=== PATIENT | male | born 1970 | race Caucasian/White ===

== ENCOUNTER 2017-11-19 17:40 | Emergency (ER) | payer BC ==
[2017-11-19] MEDS ORDERED: LABETALOL 5 MG/ML VIAL MDV IVP STA (19:16)
--- NOTE | 2017-11-19 19:23 | ED ---
General Adult HPI - General Chief complaint: Recheck/Abnormal Lab/Rx Stated complaint: Hypertension Time Seen by Provider: 11/19/17 18:56 Source: patient Mode of arrival: ambulatory Limitations: no limitations - History of Present Illness Initial comments: This 47-year-old white male presents with a complaint of high blood pressure. He states that he has had difficulty controlling his blood pressure for the past month and half. He apparently was admitted to the hospital proximal C1 and a half months ago for hypertensive crisis as well as congestive heart failure. He is on multiple blood pressure medications. He states that he has been taking these as he should. His blood pressure at home has been running between 150-160 systolic. He was seen at his primary care physician's office today and had a blood pressure of 198/112. He does complain of occasional fatigue but otherwise denies any shortness of breath, chest pain, or lower extremity edema. He denies any other complaints or modifying factors. He was sent by his primary care physician to the ER for further treatment. - Related Data Home Medications Medication Instructions Recorded Confirmed Multivitamins, Thera [Multivitamin 1 tab PO DAILY@1200 10/24/17 11/19/17 (formulary)] Atorvastatin [Lipitor] 20 mg PO HS 11/19/17 11/19/17 Carvedilol [Coreg] 25 mg PO BID 11/19/17 11/19/17 amLODIPine [Norvasc] 5 mg PO DAILY 11/19/17 11/19/17 hydrALAZINE HCL [Apresoline] 25 mg PO TID 11/19/17 11/19/17 Previous Rx's Medication Instructions Recorded Folic Acid 1 mg PO DAILY@1200 #30 tab 10/11/17 Losartan [Cozaar] 50 mg PO DAILY #30 tab 10/11/17 Thiamine [Vitamin B-1] 100 mg PO DAILY@1200 #30 tab 10/11/17 Spironolactone [Aldactone] 25 mg PO DAILY #30 tab 10/12/17 Allergies Allergy/AdvReac Type Severity Reaction Status Date / Time warfarin [From Coumadin] Allergy Swelling Verified 11/19/17 19:37 Review of Systems ROS Statement: Those systems with pertinent positive or pertinent negative responses have been documented in the HPI. ROS Other: All systems not noted in ROS Statement are negative. Past Medical History Past Medical History: Heart Failure, Hypertension History of Any Multi-Drug Resistant Organisms: None Reported Past Surgical History: Orthopedic Surgery Additional Past Surgical History / Comment(s): toe and arm surgery Past Psychological History: No Psychological Hx Reported Smoking Status: Former smoker Past Alcohol Use History: Occasional Past Drug Use History: None Reported General Exam - General Exam Comments Initial Comments: GENERAL: The patient is well nourished and well hydrated. VITAL SIGNS: Heart rate, blood pressure, respiratory rate reviewed as recorded in nurse's notes. EYES: Pupils are round and reactive. Extraocular movements are intact. No conjunctival / lid redness or swelling. ENT: No external evidence of injury, swelling, or ecchymosis. Airway is patent. Throat is clear. NECK: Nontender. No swelling or evidence of injury. No subcutaneous emphysema. Trachea is midline. No thyroid mass. HEART: Regular rate and rhythm. Good peripheral pulses. LUNGS/CHEST: Breath sounds clear and equal bilaterally. No rales, rhonchi, or wheezes. No ecchymosis, subcutaneous emphysema, or tenderness. ABDOMEN: Abdomen soft without tenderness. No palpable masses or organomegaly. No peritoneal signs. No abdominal wall swelling or ecchymosis. EXTREMITIES: No extremity tenderness. Normal muscle tone and function. No thoracolumbar tenderness. NEUROLOGIC: Sensation is grossly intact. Cranial nerve exam reveals face is symmetrical, tongue is midline, speech is clear. SKIN: No abrasions or ecchymosis is noted. No induration or masses noted. PSYCHIATRIC: Alert and oriented. Appropriate behavior and judgment. Limitations: no limitations Course Vital Signs 11/19/17 11/19/17 11/19/17 18:10 19:15 19:40 Temperature 99.0 F Pulse Rate 94 85 77 Respiratory 20 20 20 Rate Blood Pressure 188/107 178/100 160/79 O2 Sat by Pulse 98 98 99 Oximetry 11/19/17 20:00 Temperature Pulse Rate 75 Respiratory 20 Rate Blood Pressure 148/74 O2 Sat by Pulse 96 Oximetry Medical Decision Making - Medical Decision Making The patient was seen and examined. All diagnostics were reviewed. An EKG was started and shows a normal sinus rhythm at a rate of 79 with a first-degree AV block. The CO interval is 218, QRS duration is 112, and the QTC intervals 447. There is occasional artifact noted. He does receive some labetalol intravenously because his blood pressure slightly elevated at 176/100 upon my evaluation. The laboratory is reviewed and is unremarkable. After the labetalol, his blood pressure was 143/78 and he is asymptomatic. It is not felt as though he would require admission at this time. Is felt that he stable for discharge home and leaves in no distress. It is also felt as though he should increase his Norvasc from 5 mg a day to 10 mg per day and is agreeable. He will have close follow-up with his primary care physician. Return parameters are discussed. He will also maintain a blood pressure log to bring into his primary care physician. - Lab Data Result diagrams: 11/19/17 19:09 11/19/17 19:09 Lab Results 11/19/17 11/19/17 11/19/17 Range/Units 19: 19: 19: WBC 8.4 (3.8-10.6) k/uL RBC 5.73 (4.30-5.90) m/uL Hgb 16.5 D (13.0-17.5) gm/dL Hct 50.4 (39.0-53.0) % MCV 87.9 D (80.0-100.0) fL MCH 28.8 (25.0-35.0) pg MCHC 32.7 (31.0-37.0) g/dL RDW 15.3 (11.5-15.5) % Plt Count 214 (150-450) k/uL Neutrophils % 74 % Lymphocytes % 12 % Monocytes % 8 % Eosinophils % 4 % Basophils % 1 % Neutrophils # 6.3 (1.3-7.7) k/uL Lymphocytes # 1.0 (1.0-4.8) k/uL Monocytes # 0.6 (0-1.0) k/uL Eosinophils # 0.3 (0-0.7) k/uL Basophils # 0.1 (0-0.2) k/uL PT (9.0-12.0) sec INR (<1.2) APTT (22.0-30.0) sec Sodium 138 (137-145) mmol/L Potassium 4.5 (3.5-5.1) mmol/L Chloride 101 (98-107) mmol/L Carbon Dioxide 24 (22-30) mmol/L Anion Gap 13 mmol/L BUN 12 (9-20) mg/dL Creatinine 1.00 (0.66-1.25) mg/dL Est GFR (MDRD) Af Amer >60 (>60 ml/min/1.73 sqM) Est GFR (MDRD) Non-Af >60 (>60 ml/min/1.73 sqM) Glucose 90 (74-99) mg/dL Calcium 10.4 H (8.4-10.2) mg/dL Magnesium 1.9 (1.6-2.3) mg/dL Total Bilirubin 0.6 (0.2-1.3) mg/dL AST 29 (17-59) U/L ALT 44 (21-72) U/L Alkaline Phosphatase 76 (38-126) U/L Total Creatine Kinase 41 L (55-170) U/L CK-MB (CK-2) 0.6 (0.0-2.4) ng/mL CK-MB (CK-2) Rel Index 1.5 Troponin I 0.020 (0.000-0.034) ng/mL Total Protein 8.0 (6.3-8.2) g/dL Albumin 4.7 (3.5-5.0) g/dL TSH 4.170 (0.465-4.680) mIU/L 11/19/17 Range/Units 19:09 WBC (3.8-10.6) k/uL RBC (4.30-5.90) m/uL Hgb (13.0-17.5) gm/dL Hct (39.0-53.0) % MCV (80.0-100.0) fL MCH (25.0-35.0) pg MCHC (31.0-37.0) g/dL RDW (11.5-15.5) % Plt Count (150-450) k/uL Neutrophils % % Lymphocytes % % Monocytes % % Eosinophils % % Basophils % % Neutrophils # (1.3-7.7) k/uL Lymphocytes # (1.0-4.8) k/uL Monocytes # (0-1.0) k/uL Eosinophils # (0-0.7) k/uL Basophils # (0-0.2) k/uL PT 10.0 (9.0-12.0) sec INR 1.0 (<1.2) APTT 26.9 (22.0-30.0) sec Sodium (137-145) mmol/L Potassium (3.5-5.1) mmol/L Chloride (98-107) mmol/L Carbon Dioxide (22-30) mmol/L Anion Gap mmol/L BUN (9-20) mg/dL Creatinine (0.66-1.25) mg/dL Est GFR (MDRD) Af Amer (>60 ml/min/1.73 sqM) Est GFR (MDRD) Non-Af (>60 ml/min/1.73 sqM) Glucose (74-99) mg/dL Calcium (8.4-10.2) mg/dL Magnesium (1.6-2.3) mg/dL Total Bilirubin (0.2-1.3) mg/dL AST (17-59) U/L ALT (21-72) U/L Alkaline Phosphatase (38-126) U/L Total Creatine Kinase (55-170) U/L CK-MB (CK-2) (0.0-2.4) ng/mL CK-MB (CK-2) Rel Index Troponin I (0.000-0.034) ng/mL Total Protein (6.3-8.2) g/dL Albumin (3.5-5.0) g/dL TSH (0.465-4.680) mIU/L Disposition Clinical Impression: Hypertension, uncontrolled Disposition: HOME SELF-CARE Condition: Good Instructions: Hypertension (ED), DASH Eating Plan (ED) Additional Instructions: Please increase your Norvasc dosing from 5 mg a day to 10 mg once per day. Referrals: Arsh Young MD [Primary Care Provider] - 1-2 days Time of Disposition: 21:00
[2017-11-19 20:10] LABS: Basophils # (A) 0.1 k/uL (0-0.2); Basophils % (A) 1 %; Eosinophils # (A) 0.3 k/uL (0-0.7); Eosinophils % (A) 4 %; HCT 50.4 % (39.0-53.0); Lymphocytes % (A) 12 %; MCH 28.8 pg (25.0-35.0); MCHC 32.7 g/dL (31.0-37.0); Mean Platelet Volume 8.7; Monocytes # (A) 0.6 k/uL (0-1.0); Monocytes % (A) 8 %; Neutrophils # (A) 6.3 k/uL (1.3-7.7); Neutrophils % (A) 74 %; Platelet Count 214 k/uL (150-450); RBC 5.73 m/uL (4.30-5.90); RDW 15.3 % (11.5-15.5); WBC 8.4 k/uL (3.8-10.6)
[2017-11-19 20:14] LABS: HGB 16.5 gm/dL (13.0-17.5); MCV 87.9 fL (80.0-100.0)
[2017-11-19 20:17] LABS: Partial Thromboplastin Time 26.9 sec (22.0-30.0)
[2017-11-19 20:19] LABS: ALT 44 U/L (21-72); AST 29 U/L (17-59); Albumin 4.7 g/dL (3.5-5.0); Alkaline Phosphatase 76 U/L (38-126); Anion Gap 13 mmol/L; Blood Urea Nitrogen 12 mg/dL (9-20); Calcium 10.4 mg/dL (8.4-10.2); Carbon Dioxide 24 mmol/L (22-30); Chloride 101 mmol/L (98-107); Glucose 90 mg/dL (74-99); Magnesium 1.9 mg/dL (1.6-2.3); Potassium 4.5 mmol/L (3.5-5.1); Sodium 138 mmol/L (137-145); Total Bilirubin 0.6 mg/dL (0.2-1.3)
[2017-11-19 20:46] LABS: Creatine Kinase MB 0.6 ng/mL (0.0-2.4); Troponin I 0.02 ng/mL (0.000-0.034)
[2017-11-19 21:10] VITALS: BP 153/85; PULSE 79; RESP 18; TEMP 97.8
== END 2017-11-19 21:13 | disposition home or self-care (01) ==
LOC: EC 17:40
DX: I11.0 Hypertensive heart disease with heart failure (principal); I50.9 Heart failure, unspecified; Z87.891 Personal history of nicotine dependence; Z79.02 Long term (current) use of antithrombotics/antiplatelets; Z79.899 Other long term (current) drug therapy; Z88.8 Allergy status to other drugs, medicaments and biological substances
CPT/HCPCS: 36415; 80053; 82550; 82553; 83735; 84443; 84484; 85025; 85610; 85730; 93005; 96374; 99284

== ENCOUNTER → 2018-02-21 | Outpatient (CLI) | payer BC ==
--- NOTE | 2018-02-21 18:53 | US ---
EXAMINATION TYPE: US kidneys/renal and bladder DATE OF EXAM: 02/21/2018 COMPARISON: NONE CLINICAL HISTORY: N19 Renal Failure per order. Recent heart failure per patient. Difficult exam due t o patient body habitus EXAM MEASUREMENTS: Right Kidney: 10.4 x 6.2 x 4.7 cm Left Kidney: 10.6 x 5.9 x 5.0 cm Right Kidney: No hydronephrosis or masses seen Left Kidney: No hydronephrosis or masses seen Bladder: wnl Bilateral Jets seen: Yes There is no evidence for hydronephrosis at this point in time. No nephrolithiasis is seen. No marian s are identified. The urinary bladder is anechoic. Bilateral ureteral jets are seen. IMPRESSION: Unremarkable study
== END | disposition home or self-care (01) ==
LOC: RADUSWWP 15:59
PROVIDERS: ATTEND Family Medicine
DX: N19 Unspecified kidney failure (principal)
CPT/HCPCS: 76770

== ENCOUNTER 2020-05-07 11:15 | Inpatient (IN) | payer BC ==
[2020-05-07 12:18] LABS: Basophils # (A) 0.1 k/uL (0-0.2); Basophils % (A) 1 %; Eosinophils # (A) 0.1 k/uL (0-0.7); Eosinophils % (A) 1 %; HCT 51.9 % (39.0-53.0); HGB 16.4 gm/dL (13.0-17.5); Hypochromasia Slight; Lymphocytes # (A) 0.5 k/uL (1.0-4.8); Lymphocytes % (A) 7 %; MCH 29.2 pg (25.0-35.0); MCHC 31.6 g/dL (31.0-37.0); MCV 92.5 fL (80.0-100.0); Mean Platelet Volume 8.2; Monocytes # (A) 0.4 k/uL (0-1.0); Monocytes % (A) 5 %; Neutrophils # (A) 7.1 k/uL (1.3-7.7); Neutrophils % (A) 86 %; Platelet Count 282 k/uL (150-450); RBC 5.61 m/uL (4.30-5.90); RDW 14.7 % (11.5-15.5); WBC 8.2 k/uL (3.8-10.6)
[2020-05-07] MEDS ORDERED: ASPIRIN 325 MG TAB PO STA (12:24)
[2020-05-07] MEDS ORDERED: FUROSEMIDE 10 MG/ML 4 ML VIAL IV STA (12:24)
--- NOTE | 2020-05-07 12:24 | ED ---
General Adult HPI - General Chief complaint: Shortness of Breath Stated complaint: High BP, edema Time Seen by Provider: 05/07/20 11:27 Source: patient, RN notes reviewed, old records reviewed Mode of arrival: ambulatory Limitations: no limitations - History of Present Illness Initial comments: 49-year-old male history of congestive heart failure presents for evaluation of weight gain, lower extremity edema, and dyspnea. Patient was seen by his [facility] physician and noted to have significant weight gain approximately 40 pounds over the past 3 weeks. He states he was unable to get his prescriptions filled and has not been on any of his prescribed medication for the past 3 weeks. He does report orthopnea and exertional. No fever. No cough. No chest pain. - Related Data Home Medications Medication Instructions Recorded Confirmed Multivitamins, Thera [Multivitamin 1 tab PO DAILY 10/24/17 05/07/20 (formulary)] hydrALAZINE HCL [Apresoline] 25 mg PO TID 11/19/17 05/07/20 Furosemide [Lasix] 20 mg PO DAILY 05/07/20 05/07/20 Ubidecarenone [Co Q-10] 100 mg PO DAILY 05/07/20 05/07/20 Allergies Allergy/AdvReac Type Severity Reaction Status Date / Time warfarin [From Coumadin] Allergy Swelling Verified 05/07/20 12:03 Review of Systems ROS Statement: Those systems with pertinent positive or pertinent negative responses have been documented in the HPI. ROS Other: All systems not noted in ROS Statement are negative. Past Medical History Past Medical History: Heart Failure, Hypertension History of Any Multi-Drug Resistant Organisms: None Reported Past Surgical History: Orthopedic Surgery Additional Past Surgical History / Comment(s): toe and arm surgery Past Psychological History: No Psychological Hx Reported Smoking Status: Former smoker Past Alcohol Use History: Occasional Past Drug Use History: None Reported General Exam Limitations: no limitations General appearance: alert, in no apparent distress Head exam: Present: atraumatic, normocephalic Eye exam: Present: normal appearance. Absent: PERRL ENT exam: Present: normal exam Neck exam: Present: normal inspection. Absent: tenderness, meningismus Respiratory exam: Present: rales. Absent: respiratory distress, wheezes Cardiovascular Exam: Present: normal rhythm, tachycardia GI/Abdominal exam: Present: soft, distended. Absent: tenderness, guarding, rebound Extremities exam: Present: pedal edema (2+ pitting edema bilaterally) Course Vital Signs 05/07/20 05/07/20 11:22 12:43 Temperature 98.5 F Pulse Rate 116 H Respiratory 18 Rate Blood Pressure 203/142 167/133 O2 Sat by Pulse 97 Oximetry EKG Findings - EKG Comments: EKG Findings:: EKG: Sinus tachycardia, left atrial enlargement, rate of 110, DC interval 188, QRS duration 98, QTC 454, no ST segment elevation. Medical Decision Making - Medical Decision Making 49-year-old male with weight gain, dyspnea, lower leg swelling, patient is in congestive heart failure, with x-ray evidence of pulmonary edema and CHF. He has a significantly elevated BNP at 30,000 and a troponin elevation of 0 point 0.69 which I suspect is secondary to CHF. His EKG is sinus tachycardia with no ST segment elevation. He is chest pain-free. He is given aspirin, nitroglycerin, Lasix in the emergency department. He started on heparin while enzymes will be trended. I discussed case with Dr. Nava who will admit. - Lab Data Result diagrams: 05/07/20 12:03 05/07/20 12:03 Lab Results 05/07/20 05/07/20 05/07/20 Range/Units 12:03 12:03 12:03 WBC 8.2 (3.8-10.6) k/uL RBC 5.61 (4.30-5.90) m/uL Hgb 16.4 (13.0-17.5) gm/dL Hct 51.9 (39.0-53.0) % MCV 92.5 (80.0-100.0) fL MCH 29.2 (25.0-35.0) pg MCHC 31.6 (31.0-37.0) g/dL RDW 14.7 (11.5-15.5) % Plt Count 282 (150-450) k/uL Neutrophils % 86 % Lymphocytes % 7 % Monocytes % 5 % Eosinophils % 1 % Basophils % 1 % Neutrophils # 7.1 (1.3-7.7) k/uL Lymphocytes # 0.5 L (1.0-4.8) k/uL Monocytes # 0.4 (0-1.0) k/uL Eosinophils # 0.1 (0-0.7) k/uL Basophils # 0.1 (0-0.2) k/uL Hypochromasia Slight PT 12.1 H (9.0-12.0) sec INR 1.2 H (<1.2) APTT 24.5 (22.0-30.0) sec Sodium 135 L (137-145) mmol/L Potassium 4.6 (3.5-5.1) mmol/L Chloride 102 (98-107) mmol/L Carbon Dioxide 23 (22-30) mmol/L Anion Gap 10 mmol/L BUN 37 H (9-20) mg/dL Creatinine 2.03 H (0.66-1.25) mg/dL Est GFR (CKD-EPI)AfAm 43 (>60 ml/min/1.73 sqM) Est GFR (CKD-EPI)NonAf 37 (>60 ml/min/1.73 sqM) Glucose 106 H (74-99) mg/dL Plasma Lactic Acid Vega (0.7-2.0) mmol/L Calcium 9.1 (8.4-10.2) mg/dL Total Bilirubin 1.1 (0.2-1.3) mg/dL AST 32 (17-59) U/L ALT 30 (4-49) U/L Alkaline Phosphatase 105 (38-126) U/L Troponin I (0.000-0.034) ng/mL NT-Pro-B Natriuret Pep pg/mL Total Protein 6.3 (6.3-8.2) g/dL Albumin 3.3 L (3.5-5.0) g/dL 05/07/20 05/07/20 05/07/20 Range/Units 12:03 12:03 12:03 WBC (3.8-10.6) k/uL RBC (4.30-5.90) m/uL Hgb (13.0-17.5) gm/dL Hct (39.0-53.0) % MCV (80.0-100.0) fL MCH (25.0-35.0) pg MCHC (31.0-37.0) g/dL RDW (11.5-15.5) % Plt Count (150-450) k/uL Neutrophils % % Lymphocytes % % Monocytes % % Eosinophils % % Basophils % % Neutrophils # (1.3-7.7) k/uL Lymphocytes # (1.0-4.8) k/uL Monocytes # (0-1.0) k/uL Eosinophils # (0-0.7) k/uL Basophils # (0-0.2) k/uL Hypochromasia PT (9.0-12.0) sec INR (<1.2) APTT (22.0-30.0) sec Sodium (137-145) mmol/L Potassium (3.5-5.1) mmol/L Chloride (98-107) mmol/L Carbon Dioxide (22-30) mmol/L Anion Gap mmol/L BUN (9-20) mg/dL Creatinine (0.66-1.25) mg/dL Est GFR (CKD-EPI)AfAm (>60 ml/min/1.73 sqM) Est GFR (CKD-EPI)NonAf (>60 ml/min/1.73 sqM) Glucose (74-99) mg/dL Plasma Lactic Acid Vega 2.3 H* (0.7-2.0) mmol/L Calcium (8.4-10.2) mg/dL Total Bilirubin (0.2-1.3) mg/dL AST (17-59) U/L ALT (4-49) U/L Alkaline Phosphatase (38-126) U/L Troponin I 0.690 H* (0.000-0.034) ng/mL NT-Pro-B Natriuret Pep 03678 pg/mL Total Protein (6.3-8.2) g/dL Albumin (3.5-5.0) g/dL Critical Care Time Critical Care Time: Yes Total Critical Care Time: 35 Disposition Clinical Impression: Congestive heart failure Disposition: ADMITTED IP TO THIS [facility] Condition: Stable Is patient prescribed a controlled substance at d/c from ED?: No Referrals: Nila Quintana MD [Primary Care Provider] - 1-2 days Decision to Admit Reason: Admit from EC Decision Date: 05/07/20 Decision Time: 13:26
[2020-05-07 12:26] LABS: INR 1.2 (<1.2); Partial Thromboplastin Time 24.5 sec (22.0-30.0); Prothrombin Time 12.1 sec (9.0-12.0)
[2020-05-07 12:34] LABS: Albumin 3.3 g/dL (3.5-5.0); Calcium 9.1 mg/dL (8.4-10.2); Potassium 4.6 mmol/L (3.5-5.1); Total Bilirubin 1.1 mg/dL (0.2-1.3); Total Protein 6.3 g/dL (6.3-8.2)
--- NOTE | 2020-05-07 12:39 | XR ---
EXAMINATION TYPE: XR chest 2V DATE OF EXAM: 05/07/2020 COMPARISON: 10/11/2017 INDICATION: Difficulty breathing short of breath retained fluid TECHNIQUE: Frontal and lateral views of the chest are obtained. FINDINGS: The heart size is moderately prominent. The pulmonary vasculature is slightly prominent. No suspicious focal consolidations are evident.. IMPRESSION: 1. Mild volume overload or early pulmonary edema. Follow-up as clinically indicated.
[2020-05-07] MEDS: NITROGLYCERIN SL TABS 0.4 MG TAB SUBLINGUAL PRN ×2 (12:44→13:10)
[2020-05-07] MEDS ORDERED: NITROGLYCERIN-D5W PMX 50 MG in DEXTROSE/WATER 1 250ML.BAG IV ONE (13:09)
[2020-05-07] MEDS ORDERED: HEPARIN SODIUM,PORCINE 5,000 UNIT/ML 1 ML VIAL IV ONE (13:23)
[2020-05-07] MEDS ORDERED: NALOXONE 0.4 MG/ML 1 ML VIAL IV PRN (13:23)
[2020-05-07] MEDS ORDERED: HEPARIN SODIUM,PORCINE 5,000 UNIT/ML 1 ML VIAL IV PRN (13:23)
[2020-05-07] MEDS: HEPARIN SOD,PORK IN 0.45% NACL 25,000 UNIT in 0.45% NACL 1 250ML.BAG IV SCH (13:50)
--- NOTE | 2020-05-07 15:00 | ECHOF ---
Referral Reason:chf MEASUREMENTS -------- HEIGHT: 170.2 cm WEIGHT: 131.5 kg BP: 160/126 RVIDd: 3.6 cm (< 3.3) IVSd: 1.4 cm (0.6 - 1.1) LVIDd: 5.2 cm (3.9 - 5.3) LVPWd: 1.5 cm (0.6 - 1.1) IVSs: 1.7 cm LVIDs: 4.9 cm LVPWs: 2.1 cm LA Diam: 5.0 cm (2.7 - 3.8) LAESV Index (A-L): 34.87 ml/m Ao Diam: 3.5 cm (2.0 - 3.7) MV EXCURSION: 12.104 mm (> 18.000) MV EF SLOPE: 72 mm/s (70 - 150) EPSS: 2.0 cm RAP: 15.00 mmHg RVSP: 66.16 mmHg FINDINGS -------- Resting tachycardia (HR>100bpm). This was a technically difficult study with suboptimal apical views. The left ventricular size is normal. There is moderate concentric left ventricular hypertrophy. O verall left ventricular systolic function is severely impaired with, an EF < 20%. The right ventricle is mildly enlarged. LA is moderately dilated 34-39 ml/m2 The right atrium is normal in size. 3 ml of Lumason was utilized for enhancement of images. Interatrial and interventricular septum intact. There is mild aortic valve sclerosis. There is trace to mild mitral regurgitation. Mild tricuspid regurgitation present. There is severe pulmonary hypertension. The right ventricul ar systolic pressure, as measured by Doppler, is 66.16mmHg. Trace/mild (physiologic) pulmonic regurgitation. Thrombus in [place] The aortic root size is normal. The inferior vena cava is dilated with no significant inspiratory collapse which is consistent estima marlen right atrial pressure of >15 mmHg. There is a small, generalized pericardial effusion present. CONCLUSIONS -------- 1. Resting tachycardia (HR>100bpm). 2. This was a technically difficult study with suboptimal apical views. 3. The left ventricular size is normal. 4. There is moderate concentric left ventricular hypertrophy. 5. Overall left ventricular systolic function is severely impaired with, an EF < 20%. 6. The right ventricle is mildly enlarged. 7. LA is moderately dilated 34-39 ml/m2 8. The right atrium is normal in size. 9. xx ml of Lumason was utilized for enhancement of images. 10. Interatrial and interventricular septum intact. 11. There is mild aortic valve sclerosis. 12. There is trace to mild mitral regurgitation. 13. Mild tricuspid regurgitation present. 14. There is severe pulmonary hypertension. 15. The right ventricular systolic pressure, as measured by Doppler, is 66.16mmHg. 16. Trace/mild (physiologic) pulmonic regurgitation. 17. Thrombus in [place] 18. The aortic root size is normal. 19. The inferior vena cava is dilated with no significant inspiratory collapse which is consistent es timated right atrial pressure of >15 mmHg. 20. There is a small, generalized pericardial effusion present. [employer]: Michelle Bundy RDCS
--- NOTE | 2020-05-07 17:00 | P.HPIM ---
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 Patient used to drink heavily between 6-12 beers a day for many years. Patient was placed on multi-medication for his heart failure supposed to see his primary care and cardiology regular basis which patient has not seen anyone for the last 12 month has not in on any medication including diuretics or DARSHAN inhibitor for over 6 months. Resented with over 40 pounds weight gain if can't dyspnea and shortness of breath with anasarca edema and significant ascites patient was diagnosed with acute exacerbation of CHF on a ch ronic CHF with cardiomyopathy he was started on IV Lasix and will be hospitalized. Review of Systems CONSTITUTIONAL: Well-developed mild respiratory distress. Morbidly obese EYES: No icterus sclerae, no conjunctivitis. EARS, NOSE, MOUTH, THROAT, and FACE: No sore throat, lymphadenopathy, carotid bruits or deformity. RESPIRATORY: Severe dyspnea and shortness of breath. CARDIOVASCULAR: Positive PND orthopnea palpitation with severe cardiopathy. GASTROINTESTINAL: No Abd pain, Nausea or vomiting, no Diarrhea or constipation, No GI Bleed, no distention or masses. Significant abdominal distention. GENITOURINARY: Negative for Hematuria or UTI, no kidney stones. Multi- urination. INTEGUMENT/BREAST: Negative for any muscular injury with mild osteoarthritis.. HEMATOLOGIC/LYMPHATIC: Negative for bleed or purpura. MUSCULOSKELTAL: Negative for Myalgia or arthralgia. NEURLOGICAL: No LOC, Sz or syncope, blurred vision dizziness or abnormality.. BEHAVIORAL/PSYCH: Negative. ENDOCRINE: Negative. Social history: He quit drinking 6 weeks ago used to drink 6-7 beers daily for the last 10 years, patient smokes one pack a day for 15 years he quit 10 years ago. 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 Family history: His father is 77 CAD, mother no 76 at [facility], patient had 1 brother who is doing well patient has one child with no major medical problem. Past Medical History Past Medical History: Heart Failure, Hypertension History of Any Multi-Drug Resistant Organisms: None Reported Past Surgical History: Orthopedic Surgery Additional Past Surgical History / Comment(s): toe and arm surgery Past Psychological History: No Psychological Hx Reported Smoking Status: Former smoker Past Alcohol Use History: Occasional Past Drug Use History: None Reported Medications and Allergies Home Medications Medication Instructions Recorded Confirmed Type Multivitamins, Thera [Multivitamin 1 tab PO DAILY 10/24/17 05/07/20 History (formulary)] hydrALAZINE HCL [Apresoline] 25 mg PO TID 11/19/17 05/07/20 History Furosemide [Lasix] 20 mg PO DAILY 05/07/20 05/07/20 History Ubidecarenone [Co Q-10] 100 mg PO DAILY 05/07/20 05/07/20 History amLODIPine [Norvasc] 5 mg PO DAILY 05/07/20 05/07/20 History Allergies Allergy/AdvReac Type Severity Reaction Status Date / Time warfarin [From Coumadin] Allergy Swelling Verified 05/07/20 12:03 Physical Exam Vitals: Vital Signs Temp Pulse Resp BP Pulse Ox 05/07/20 14:21 98.2 F 101 H 18 176/136 96 05/07/20 14:17 187/130 05/07/20 13:49 160/126 05/07/20 13:45 108 H 21 161/133 05/07/20 13:30 104 H 20 175/121 05/07/20 13:15 103 H 22 168/125 05/07/20 12:45 108 H 19 167/133 05/07/20 12:43 167/133 05/07/20 12:15 105 H 17 05/07/20 12:11 96 05/07/20 11:22 98.5 F 116 H 18 203/142 97 Intake and Output 05/07/20 05/07/20 05/07/20 06:59 14:59 22:59 Other: Weight 132.903 kg General Appearance: Alert, cooperative, morbidly obese in mild respiratory distress. Neck HEENT: Supple, no lymphadenopathy, no thyroid enlargement, no carotid bruits. Lungs: Decreased breath some bilaterally with fine rhonchi has mild crackles has mild expiratory wheezes. Chest Wall: Decrease expansion with deep inspiration no tenderness and no deformity was found on exam, no costochondral pain or discomfort. Heart: Regular rate and rhythm, S1, S2 positive S3 +5 cm JVD with mild PVCs. Back: Symmetric, no curvature, ROM normal, no CVA tenderness. Abdomen: Distended soft possible sound organomegaly slight discomfort lower a bdominal region area with significant anasarca and swelling.. Extremities: 2+ edema bilaterally with mild arthritis. Pulses: 2+ and symmetric. Skin: Skin color, texture, tugor normal, no rashes or lesions. Neurologic: Alert oriented x3 cranial nerves II through XII intact, no motor deficit, no abnormal balance or gait. Results CBC & Chem 7: 05/07/20 12:05/07/20 12: Labs: Abnormal Lab Results - Last 24 Hours (Table) 05/07/20 05/07/20 05/07/20 Range/Units 12:03 12:03 12:03 Lymphocytes # 0.5 L (1.0-4.8) k/uL PT 12.1 H (9.0-12.0) sec INR 1.2 H (<1.2) Sodium 135 L (137-145) mmol/L BUN 37 H (9-20) mg/dL Creatinine 2.03 H (0.66-1.25) mg/dL Glucose 106 H (74-99) mg/dL Plasma Lactic Acid Vega (0.7-2.0) mmol/L Troponin I (0.000-0.034) ng/mL Albumin 3.3 L (3.5-5.0) g/dL 05/07/20 05/07/20 Range/Units 12:03 12:03 Lymphocytes # (1.0-4.8) k/uL PT (9.0-12.0) sec INR (<1.2) Sodium (137-145) mmol/L BUN (9-20) mg/dL Creatinine (0.66-1.25) mg/dL Glucose (74-99) mg/dL Plasma Lactic Acid Vega 2.3 H* (0.7-2.0) mmol/L Troponin I 0.690 H* (0.000-0.034) ng/mL Albumin (3.5-5.0) g/dL Thrombosis Risk Factor Assmnt - DVT/VTE Prophylaxis DVT/VTE Prophylaxis: Pharmacologic Prophylaxis ordered, Mechanical Prophylaxis ordered Assessment and Plan Assessment: 1 severe dyspnea and shortness of breath with acute respiratory failure: Combination of acute exacerbation of systolic congestive heart failure with chronic heart failure. 2 systolic dysfunction congestive heart failure with worsening symptoms, mostly from noncompliant to medication and probably from worsening alcoholic cardiopathy, patient was supposed to be on furosemide daily along with hydralazine and isosorbide has not taking her medication in several months he has over 40 pounds weight gain since. Patient will be hospitalized continue IV furosemide 40 mg every 8 hours continue nitro back on his hydralazine patient will need smaller dose of beta kaycee as well. Can add Aldactone to reduce the watch retention and anasarca quickly. Echocardiogram will be performed and consult cardiology. 3 alcoholic cardiopathy: With much worsening symptoms, patient claimed he quit drinking recently not a clear at this point and echocardiogram compared to the one in 2017 to see if there is any worsening sign and symptom of contractility with ejection fraction. 4 hypertension: Has not been taking his medication for over 6 month his blood pressure was moderately elevated continue hydralazine continue furosemide Will add Aldactone at this point and probably small dose of beta kaycee. 5 acute kidney injury with chronic kidney disease: Creatinine is up to 2.0 with GFR less than 30 continue to watch daily chemistry. 6 mildly elevated troponin, possible of non-ST MD echocardiogram will consult cardiology if troponin is worsening patient might need to go to the assistant laboratory director. 7 elevated lactic acid: Not a clear etiology most likely metabolic acidosis from worsening heart failure and hypoperfusion continue IV diuretics and recheck lactic acid. 8 GI prophylaxis: Patient will be on pantoprazole 40 mg daily. 9 DVT prophylaxis: Patient will be on heparin 5000 units subcu in his twice a day. 10 most likely obstructive sleep apnea: With no study in the past patient need to have an arrange outpatient sleep study for further management. CODE STATUS: Full code. Admit patient to the inpatient service for more than 2 night stay.
[2020-05-07] MEDS ORDERED: hydrALAZINE HCL 20 MG/ML 1 ML VIAL IVP PRN (20:43)
[2020-05-07] MEDS ORDERED: FUROSEMIDE 10 MG/ML 4 ML VIAL IV SCH (21:00)
[2020-05-07] MEDS: hydrALAZINE HCL 50 MG TAB PO SCH (21:08)
[2020-05-07] MEDS: LABETALOL 100 MG TAB PO SCH (21:09)
[2020-05-07] MEDS ORDERED: hydrALAZINE HCL 25 MG TAB PO SCH (22:00)
[2020-05-07 22:33] LABS: Appearance,Urine Clear (Clear); Bilirubin,Urine Negative (Negative); Blood,Urine Negative (Negative); Color,Urine Light Yellow; Glucose,Urine (UA) Negative (Negative); Hyaline Casts,Urine 7 /lpf (0-2); Ketones,Urine Negative (Negative); Leukocyte Esterase,Urine Negative (Negative); Mucus,Urine Rare /hpf; Nitrite,Urine Negative (Negative); PH, Urine 5.5 (5.0-8.0); Protein,Urine 1+ (Negative); Specific Gravity,Urine 1.005 (1.001-1.035); Urobilinogen,Urine <2.0 mg/dL (<2.0); WBC,Urine <1 /hpf (0-5)
[2020-05-08] MEDS ORDERED: FUROSEMIDE 40 MG TAB PO SCH
[2020-05-08] MEDS: HEPARIN SOD,PORK IN 0.45% NACL 25,000 UNIT in 0.45% NACL 1 250ML.BAG IV SCH (03:17)
[2020-05-08] MEDS ORDERED: FUROSEMIDE 10 MG/ML 4 ML VIAL IV SCH (04:00)
[2020-05-08] MEDS: PANTOPRAZOLE 40 MG TABLET PO SCH (05:58)
[2020-05-08] MEDS: LABETALOL 100 MG TAB PO SCH ×2 (07:36→20:10)
[2020-05-08] MEDS: hydrALAZINE HCL 50 MG TAB PO SCH (07:36)
[2020-05-08] MEDS: NON FORMULARY DRUG (Ubidecarenone [Co Q-10] 100 MG) PO SCH (07:37)
--- NOTE | 2020-05-08 08:44 | P.NPCON ---
History of Present Illness - Reason for Consult acute renal failure - History of Present Illness Reason for visitation: Acute kidney injury History of present illness: Patient is a 49-year-old male seen in renal consultation for acute kidney injury. Patient presented to the hospital with worsening lymphedema over the last few weeks. Patient states that he has gained over 40 pounds within the last 4-6 weeks. He is currently maintained on IV Lasix 40 mg 3 times daily. urine output over 3 L in the last 24 hours. Patient's his edema is gradually improving. Creatinine was 2.03 on admission. Creatinine from November 2017 was 1.0. Patient is noted to have an ejection fraction of less than 20% with severe pulmonary hypertension. He denies use of nonsteroidals. Unknown family history as he was adopted. No fever or chills. No cough. No vomiting or diarrhea. Oral intake is fair.he denies history of diabetes. He does have history of hypertension blood pressure has been fairly stable although was high this morning. Vital signs are stable. General: The patient appeared well nourished and normally developed. HEENT: Head exam is unremarkable. Neck is without jugular venous distension. LUNGS: Breath sounds decreased. HEART: Rate and Rhythm are regular. ABDOMEN: Soft, nontender. EXTREMITITES: 3+ edema. Past Medical History Past Medical History: Heart Failure, Hypertension History of Any Multi-Drug Resistant Organisms: None Reported Past Surgical History: Orthopedic Surgery Additional Past Surgical History / Comment(s): toe and arm surgery Past Anesthesia/Blood Transfusion Reactions: No Reported Reaction Past Psychological History: No Psychological Hx Reported Smoking Status: Former smoker Past Alcohol Use History: Occasional Past Drug Use History: None Reported - Past Family History Mother History Unknown: Yes Father History Unknown: Yes Medications and Allergies Home Medications Medication Instructions Recorded Confirmed Type Multivitamins, Thera [Multivitamin 1 tab PO DAILY 10/24/17 05/07/20 History (formulary)] hydrALAZINE HCL [Apresoline] 25 mg PO TID 11/19/17 05/07/20 History Furosemide [Lasix] 20 mg PO DAILY 05/07/20 05/07/20 History Ubidecarenone [Co Q-10] 100 mg PO DAILY 05/07/20 05/07/20 History amLODIPine [Norvasc] 5 mg PO DAILY 05/07/20 05/07/20 History Allergies Allergy/AdvReac Type Severity Reaction Status Date / Time warfarin [From Coumadin] Allergy Swelling Verified 05/07/20 12:03 Physical Exam Vitals: Vital Signs Temp Pulse Pulse Resp BP BP Pulse Ox 05/08/20 07:33 97.8 F 92 18 173/116 96 05/08/20 03:00 98 F 81 16 157/103 97 05/07/20 23:00 98.5 F 80 16 123/78 93 L 05/07/20 22:10 88 138/84 05/07/20 20:30 104 H 16 189/145 94 L 05/07/20 19:40 98.4 F 104 H 16 202/152 93 L 05/07/20 19:08 97.4 F L 97 18 185/128 97 05/07/20 16:00 18 05/07/20 14:21 98.2 F 101 H 18 176/136 96 05/07/20 14:17 187/130 05/07/20 13:49 160/126 05/07/20 13:45 108 H 21 161/133 05/07/20 13:30 104 H 20 175/121 05/07/20 13:15 103 H 22 168/125 05/07/20 12:45 108 H 19 167/133 05/07/20 12:43 167/133 05/07/20 12:15 105 H 17 05/07/20 12:11 96 05/07/20 11:22 98.5 F 116 H 18 203/142 97 Intake and Output 05/07/20 05/08/20 05/08/20 22:59 06:59 14:59 Intake Total 214.501 Output Total 2450 1075 Balance -2235.499 -1075 Intake: Intake, IV Titration 214.501 Amount Heparin Sod,Pork in 0.45% 214.501 NaCl 25,000 unit In 0.45 % NaCl 1 250ml.bag @ 7.52 UNITS/KG/HR 9.994 mls/hr IV .Q24H [facility] Rx#: [id number] Output: Urine 2450 1075 Other: Voiding Method Urinal Urinal # Voids 3 Weight 132.903 kg 124.9 kg Results - Lab Results Most recent lab results Calcium 9.1 mg/dL (8.4-10.2) 05/07/20 12:03 05/07/20 12:03 05/07/20 12:03 Assessment and Plan Plan: Assessment: 1. Acute kidney injury mostly prerenal secondary to cardiorenal syndrome. Creatinine 2.03 on admission. Creatinine November 2017 was 1. 2. Acute on chronic systolic CHF with ejection fraction of less than 20% with severe pulmonary hypertension. 3. Volume overload. 4. Benign hypertension. Plan: Discontinue IV push Lasix. Start Lasix drip at 10 mL an hour. Add metolazone 5 mg once daily. Check renal ultrasound. Daily weights. Strict is and os. Low-salt diet and 1500 mL fluid restriction. Continue to monitor renal function and urine output. Thank you for the consultation. I will continue to follow the patient with you during his hospital stay.
[2020-05-08 08:53] LABS: Basophils % (A) 1 %; Eosinophils # (A) 0.1 k/uL (0-0.7); Eosinophils % (A) 1 %; HCT 48.3 % (39.0-53.0); HGB 14.9 gm/dL (13.0-17.5); Hypochromasia Slight; Lymphocytes # (A) 0.5 k/uL (1.0-4.8); Lymphocytes % (A) 9 %; MCHC 30.9 g/dL (31.0-37.0); Mean Platelet Volume 8.1; Monocytes # (A) 0.3 k/uL (0-1.0); Monocytes % (A) 6 %; Neutrophils # (A) 4.8 k/uL (1.3-7.7); Neutrophils % (A) 82 %; Platelet Count 213 k/uL (150-450); RBC 5.14 m/uL (4.30-5.90); RDW 14.8 % (11.5-15.5); WBC 5.9 k/uL (3.8-10.6)
[2020-05-08] MEDS ORDERED: amLODIPine 5 MG TAB PO SCH (09:00)
[2020-05-08] MEDS ORDERED: METOPROLOL SUCCINATE (ER) 25 MG TAB.ER.24H PO SCH (09:00)
[2020-05-08] MEDS ORDERED: ISOSORBIDE MONONITRATE ER 30 MG TAB.ER.24H PO SCH (09:00)
[2020-05-08 09:04] LABS: Albumin 2.9 g/dL (3.5-5.0); Calcium 8.7 mg/dL (8.4-10.2); Magnesium 2.1 mg/dL (1.6-2.3); Potassium 3.9 mmol/L (3.5-5.1); Total Bilirubin 1.1 mg/dL (0.2-1.3); Total Protein 5.8 g/dL (6.3-8.2)
[2020-05-08] MEDS: METOLAZONE 5 MG TAB PO SCH (09:33)
[2020-05-08] MEDS: FUROSEMIDE 100 MG in SODIUM CHLORIDE 0.9% 90 ML IV SCH ×2 (09:33→18:02)
[2020-05-08] MEDS: hydrALAZINE HCL 25 MG TAB PO SCH ×3 (09:37→20:10)
[2020-05-08] MEDS: ISOSORBIDE MONONITRATE ER 60 MG TAB.ER.24H PO SCH (09:37)
--- NOTE | 2020-05-08 09:50 | P.CRDCN ---
History of Present Illness Consult date: 05/08/20 Requesting physician: Be Nava Consult reason: congestive heart failure Chief complaint: Shortness of breath, weight gain and lower extremity edema History of present illness: This is a 49-year-old gentleman with documented history of hypertension, nonischemic cardiomyopathy with documented ejection fraction of less than 20%, no history of diabetes or hyperlipidemia, he is a nonsmoker, he does have a history of significant alcohol use which was felt originally to be the cause of his cardiomyopathy. According to the patient, he has not taken any of his medications for the past 3 weeks. He presents to the emergency room with symptoms of significant weight gain, bilateral lower extremity edema and shortness of breath. His chest x-ray on presentation here showed mild volume overload and early pulmonary edema. EKG shows a sinus tachycardia with nonspecific ST-T wave changes. An echocardiogram with Doppler study was performed here which revealed an LV function of less than 20%. There is evidence of thrombus in the apex. Small generalized pericardial effusion. I pressure on presentation here 203/142, heart rate 118, temperature 98.5, 97% on room air. Blood pressure this morning 172/116, heart rate in the 90s, 96% on room air. White blood cell count 5.9, hemoglobin 14.9, platelet count 213. Sodium 138, potassium 3.9, BUN 36, creatinine 1.9, yesterday's BUN was 37 with a creatinine of 2.0. BNP level 30,700. Troponin 0.69, 0.77, 0.68. Tucker virus not detected. The patient was initiated on IV push Lasix in the emergency room, we will discontinue the IV push Lasix and start the patient on a Lasix drip. Because of the known cardiomyopathy with documented ejection fraction of less than 20%, we will discontinue the Norvasc, patient was also on 2 beta blockers, we'll discontinue the metoprolol and continue with the labetalol for now. Increase dose of hydralazine increased dose of Imdur and attempt to optimize blood pressure control. Patient is not currently on an DARSHAN inhibitor because of abnormal renal function. Patient has also been seen in consultation by nephrology and initiated on Zaroxolyn. Past Medical History Past Medical History: Heart Failure, Hypertension History of Any Multi-Drug Resistant Organisms: None Reported Past Surgical History: Orthopedic Surgery Additional Past Surgical History / Comment(s): toe and arm surgery Past Anesthesia/Blood Transfusion Reactions: No Reported Reaction Past Psychological History: No Psychological Hx Reported Smoking Status: Former smoker Past Alcohol Use History: Occasional Past Drug Use History: None Reported - Past Family History Mother History Unknown: Yes Father History Unknown: Yes Medications and Allergies Home Medications Medication Instructions Recorded Confirmed Type Multivitamins, Thera [Multivitamin 1 tab PO DAILY 10/24/17 05/07/20 History (formulary)] hydrALAZINE HCL [Apresoline] 25 mg PO TID 11/19/17 05/07/20 History Furosemide [Lasix] 20 mg PO DAILY 05/07/20 05/07/20 History Ubidecarenone [Co Q-10] 100 mg PO DAILY 05/07/20 05/07/20 History amLODIPine [Norvasc] 5 mg PO DAILY 05/07/20 05/07/20 History Allergies Allergy/AdvReac Type Severity Reaction Status Date / Time warfarin [From Coumadin] Allergy Swelling Verified 05/07/20 12:03 Physical Exam Vitals: Vital Signs Temp Pulse Pulse Resp BP BP Pulse Ox 05/08/20 07:33 97.8 F 92 18 173/116 96 05/08/20 03:00 98 F 81 16 157/103 97 05/07/20 23:00 98.5 F 80 16 123/78 93 L 05/07/20 22:10 88 138/84 05/07/20 20:30 104 H 16 189/145 94 L 05/07/20 19:40 98.4 F 104 H 16 202/152 93 L 05/07/20 19:08 97.4 F L 97 18 185/128 97 05/07/20 16:00 18 05/07/20 14:21 98.2 F 101 H 18 176/136 96 05/07/20 14:17 187/130 05/07/20 13:49 160/126 05/07/20 13:45 108 H 21 161/133 05/07/20 13:30 104 H 20 175/121 05/07/20 13:15 103 H 22 168/125 05/07/20 12:45 108 H 19 167/133 05/07/20 12:43 167/133 05/07/20 12:15 105 H 17 05/07/20 12:11 96 05/07/20 11:22 98.5 F 116 H 18 203/142 97 Intake and Output 05/07/20 05/08/20 05/08/20 22:59 06:59 14:59 Intake Total 214.501 Output Total 2450 1075 Balance -2235.499 -1075 Intake: Intake, IV Titration 214.501 Amount Heparin Sod,Pork in 0.45% 214.501 NaCl 25,000 unit In 0.45 % NaCl 1 250ml.bag @ 7.52 UNITS/KG/HR 9.994 mls/hr IV .Q24H [facility] Rx#: [id number] Output: Urine 2450 1075 Other: Voiding Method Urinal Urinal Urinal # Voids 3 Weight 132.903 kg 124.9 kg PHYSICAL EXAMINATION: GENERAL: 49-year-old gentleman in no acute distress at the time of my examination HEENT: Head is atraumatic, normocephalic. Pupils equal, round. Sclera anicteric. Conjunctiva are clear. Mucous membranes of the mouth are moist. Neck is supple. There is elevated jugular venous pressure. No carotid bruit is heard. HEART EXAMINATION: Heart S1, S2 normal. No murmur or gallop heard. CHEST EXAMINATION: Lungs reveal diminished air entry to the bases bilaterally ABDOMEN: Soft, obese, nontender. Bowel sounds are heard. No organomegaly noted. EXTREMITIES: 2+ peripheral pulses with 3+ evidence of peripheral edema and no calf tenderness noted. NEUROLOGIC patient is awake, alert and oriented 3 . . Results 05/08/20 08:18 05/08/20 08:18 Cardiac Enzymes 05/07/20 05/07/20 05/07/20 Range/Units 12:03 12:03 18:54 AST 32 (17-59) U/L Troponin I 0.690 H* 0.770 H* (0.000-0.034) ng/mL 05/08/20 05/08/20 Range/Units 01:30 08:18 AST 36 (17-59) U/L Troponin I 0.683 H* (0.000-0.034) ng/mL Coagulation 05/07/20 05/07/20 05/08/20 Range/Units 12:03 18:54 01:30 PT 12.1 H (9.0-12.0) sec APTT 24.5 66.9 H 57.1 H (22.0-30.0) sec CBC 05/07/20 05/08/20 Range/Units 12:03 08:18 WBC 8.2 5.9 (3.8-10.6) k/uL RBC 5.61 5.14 (4.30-5.90) m/uL Hgb 16.4 14.9 (13.0-17.5) gm/dL Hct 51.9 48.3 (39.0-53.0) % Plt Count 282 213 (150-450) k/uL Comprehensive Metabolic Panel 05/07/20 05/08/20 Range/Units 12:03 08:18 Sodium 135 L 138 (137-145) mmol/L Potassium 4.6 3.9 (3.5-5.1) mmol/L Chloride 102 100 (98-107) mmol/L Carbon Dioxide 23 29 (22-30) mmol/L BUN 37 H 36 H (9-20) mg/dL Creatinine 2.03 H 1.92 H (0.66-1.25) mg/dL Glucose 106 H 84 (74-99) mg/dL Calcium 9.1 8.7 (8.4-10.2) mg/dL AST 32 36 (17-59) U/L ALT 30 29 (4-49) U/L Alkaline Phosphatase 105 78 (38-126) U/L Total Protein 6.3 5.8 L (6.3-8.2) g/dL Albumin 3.3 L 2.9 L (3.5-5.0) g/dL Current Medications Generic Name Dose Route Start Last Admin Trade Name Freq PRN Reason Stop Dose Admin Heparin Sodium (Porcine) 0 unit 05/07/20 13:23 Heparin IV PER PROTOCOL PRN Low PTT Protocol Hydralazine HCl 10 mg 05/07/20 20:43 Apresoline IVP Q4HR PRN Blood Pressure - High Hydralazine HCl 75 mg 05/08/20 09:00 05/08/20 09:37 Apresoline PO 25 mg TID JEEVAN Administration Heparin Sodium/Sodium Chloride 250 mls @ 9.994 mls/hr 05/07/20 13:30 05/08/20 03:17 25,000 unit/ Sodium Chloride IV 12 units/kg/hr .Q24H JEEVAN 15.948 mls/hr Administration Protocol 7.52 UNITS/KG/HR Furosemide 100 mg/ Sodium 100 mls @ 10 mls/hr 05/08/20 08:45 05/08/20 09:33 Chloride IV 10 mg/hr .Q10H JEEVAN 10 mls/hr Administration 10 MG/HR Isosorbide Mononitrate 60 mg 05/08/20 09:00 05/08/20 09:37 Imdur PO 30 mg DAILY JEEVAN Administration Labetalol HCl 100 mg 05/07/20 21:00 05/08/20 07:36 Trandate PO 100 mg BID JEEVAN Administration Metolazone 5 mg 05/08/20 09:00 05/08/20 09:33 Zaroxolyn PO 5 mg DAILY JEEVAN Administration Naloxone HCl 0.2 mg 05/07/20 13:23 Narcan IV Q2M PRN Opioid Reversal Nitroglycerin 0.4 mg 05/07/20 12:24 05/07/20 13:10 Nitrostat SUBLINGUAL 0.4 mg Q5M PRN Administration Chest Pain Non-Formulary Medication 100 mg 05/08/20 09:00 05/08/20 07:37 Ubidecarenone [Co Q-10] PO Not Given DAILY JEEVAN Pantoprazole Sodium 40 mg 05/08/20 07:30 05/08/20 05:58 Protonix PO Not Given AC-BRKFST JEEVAN Intake and Output 05/07/20 05/08/20 05/08/20 22:59 06:59 14:59 Intake Total 214.501 Output Total 2450 1075 Balance -2235.499 -1075 Intake: Intake, IV Titration 214.501 Amount Heparin Sod,Pork in 0.45% 214.501 NaCl 25,000 unit In 0.45 % NaCl 1 250ml.bag @ 7.52 UNITS/KG/HR 9.994 mls/hr IV .Q24H [facility] Rx#: [id number] Output: Urine 2450 1075 Other: Voiding Method Urinal Urinal Urinal # Voids 3 Weight 132.903 kg 124.9 kg 05/08/20 08:18 05/08/20 08:18 EKG Interpretations (text) EKG shows a sinus tachycardia with nonspecific ST-T wave changes. Assessment and Plan Plan: Assessment and plan #1 systolic congestive heart failure acute on chronic #2 nonischemic cardio myopathy with documented ejection fraction of less than 20% #3 evidence of apical thrombus #4 hypertensive urgency #5 noncompliance with medication, patient has not taken any medications for the past 3 weeks #6 history of EtOH abuse Plan Patient will be started on an IV Lasix drip, we will also increase the dose of hydralazine and nitrates to optimize blood pressure control. Discontinue the Norvasc because of the known documented cardiomyopathy. Continue labetalol. Patient will need anticoagulation for the evidence of thrombus in the apex, continue IV heparin at this time. We will monitor the patient's intake and output along with daily weights and daily lytes BUN and creatinine. Patient has been educated regarding the importance of taking his medications regularly. Further recommendations to follow. DNP note has been reviewed, I agree with a documented findings and plan of care. Patient was seen and examined.
--- NOTE | 2020-05-08 09:59 | US ---
EXAMINATION TYPE: US kidneys/renal and bladder DATE OF EXAM: 05/08/2020 COMPARISON: Previous study dated 02/21/2018. CLINICAL HISTORY: ashley. ASHLEY EXAM MEASUREMENTS: Right Kidney: 10.1 x 5.0 x 4.2 cm Left Kidney: 10.5 x 5.7 x 4.4 cm Technical limitations due to patient's body habitus Right Kidney: no evidence of hydronephrosis Left Kidney: cystic area lower pole = 1.9 x 1.7 x 1.7cm Bladder: appears wnl Bilateral Jets seen: no The hypoechoic area seen in the lower pole of the left kidney was not clearly identified previously. This does not meet the requirements of a simple cyst. IMPRESSION: LEFT LOWER POLE RENAL MASS. FURTHER EVALUATION WITH CT OR MR WOULD BE SUGGESTED.
[2020-05-08 13:24] VITALS: BMI 43.1
[2020-05-08] MEDS: APIXABAN 5 MG TAB PO SCH ×2 (13:50→20:09)
--- NOTE | 2020-05-08 15:39 | P.PN ---
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 Patient used to drink heavily between 6-12 beers a day for many years. Patient was placed on multi-medication for his heart failure supposed to see his primary care and cardiology regular basis which patient has not seen anyone for the last 12 month has not in on any medication including diuretics or MARIO inhibitor for over 6 months. Resented with over 40 pounds weight gain if can't dyspnea and shortness of breath with anasarca edema and sig nificant ascites patient was diagnosed with acute exacerbation of CHF on a chronic CHF with cardiomyopathy he was started on IV Lasix and will be hospitalized. 05/08: Patient feels better, with regards to shortness of breath, however significant edema still present, he seemed to have noticed some improvement., Patient denies any chest pain or palpitations or PND, however he does have minimal dyspnea and exertion. His echocardiogram shows resting tachycardia over 100, has moderate concentric LVH, severely impaired systolic function with EF of under 20%, LA dilated, mild aortic valve sclerosis without stenosis, right ventricular systolic pressure of 66, small generalized pericardial effusion noted patient is seen by cardiology and pulmonary, and nephrology, patient has not yet optimized secondary to abnormal renal function, patient would need to be on MARIO inhibitor she, patient is now on Zaroxolyn, and IV Lasix drip at 10 mics per hour, patient is on labetalol 100 mg twice a day for blood pressure control, patient is off amlodipine and to significant edema. Patient is committed to abstaining from alcohol permanently, urinalysis shows +1 proteinuria, albumin is low at 2.9, troponin is 0.68 3.770, current creatinine of 1.9, BUN of 36 abdominal ultrasound showing left lower pole renal mass, requiring CT investigation, no hydronephrosis, we'll going to request CT of the kidneys, no contrast at this time secondary to abnormal renal function patient might need urology, however there is no gross hematuria or microscopic hematuria noted. Blood pressure improved to systolic of 140-160, heart rate of 84 nonlabored breathing pulse ox 96% on room air standby O2 Review of Systems CONSTITUTIONAL: Well-developed mild respiratory distress. Morbidly obese EYES: No icterus sclerae, no conjunctivitis. EARS, NOSE, MOUTH, THROAT, and FACE: No sore throat, lymphadenopathy, carotid bruits or deformity. RESPIRATORY: Severe dyspnea and shortness of breath. CARDIOVASCULAR: Positive PND orthopnea palpitation with severe cardiopathy. GASTROINTESTINAL: No Abd pain, Nausea or vomiting, no Diarrhea or constipation, No GI Bleed, no distention or masses. Significant abdominal distention. GENITOURINARY: Negative for Hematuria or UTI, no kidney stones. Multi- urination. INTEGUMENT/BREAST: Negative for any muscular injury with mild osteoarthritis.. HEMATOLOGIC/LYMPHATIC: Negative for bleed or purpura. MUSCULOSKELTAL: Negative for Myalgia or arthralgia. NEURLOGICAL: No LOC, Sz or syncope, blurred vision dizziness or abnormality.. BEHAVIORAL/PSYCH: Negative. ENDOCRINE: Negative. Objective - Vital Signs Vital signs: Vital Signs Temp 97.6 F 05/08/20 15:08 Pulse 84 05/08/20 15:08 Resp 18 05/08/20 15:08 BP 146/95 05/08/20 15:08 Pulse Ox 96 05/08/20 15:08 Intake & Output 05/07/20 05/08/20 05/08/20 18:59 06:59 18:59 Intake Total 214.501 460 Output Total 2450 4750 Balance -2232.499 4290 Weight 132.903 kg 124.9 kg 124.9 kg Intake: IV 100 Furosemide 100 mg In 20 Sodium Chloride 0.9% 90 ml @ 10 MG/HR 10 mls/hr IV .Q10H JEEVAN Rx#: [id number] Heparin Sod,Pork in 0.45% 80 NaCl 25,000 unit In 0.45 % NaCl 1 250ml.bag @ 7.52 UNITS/KG/HR 9.994 mls/hr IV .Q24H JEEVAN Rx#: [id number] Intake, IV Titration 214.501 Amount Heparin Sod,Pork in 0.45% 214.501 NaCl 25,000 unit In 0.45 % NaCl 1 250ml.bag @ 7.52 UNITS/KG/HR 9.994 mls/hr IV .Q24H JEEVAN Rx#: [id number] Oral 360 Output: Urine 2450 4750 Other: Voiding Method Urinal Urinal Urinal # Voids 3 - Constitutional General appearance: Present: cooperative, no acute distress - EENT Eyes: Present: anicteric sclerae, EOMI, PERRLA, dentition normal ENT: Present: NA/AT, normal oropharynx - Neck Neck: Present: normal ROM - Respiratory Respiratory: bilateral: CTA, negative: diminished, dullness - Cardiovascular Rhythm: regular Heart sounds: normal: S1 Abnormal Heart Sounds: Present: systolic murmur. Absent: diastolic murmur, rub, S3 Gallop, S4 Gallop, click, other - Peripheral edema leg Peripheral Edema: bilateral: 4+ - Gastrointestinal General gastrointestinal: Present: normal bowel sounds, soft - Integumentary Integumentary: Present: normal - Neurologic Neurologic: Present: CNII-XII intact - Musculoskeletal Musculoskeletal: Present: gait normal, strength equal bilaterally - Psychiatric Psychiatric: Present: A&O x's 3, appropriate affect, intact judgment & insight - Labs CBC & Chem 7: 05/08/20 08:18 05/08/20 08:18 Labs: Abnormal Lab Results - Last 24 Hours (Table) 05/07/20 05/07/20 05/07/20 Range/Units 18:54 18:54 22:02 MCHC (31.0-37.0) g/dL Lymphocytes # (1.0-4.8) k/uL APTT 66.9 H (22.0-30.0) sec BUN (9-20) mg/dL Creatinine (0.66-1.25) mg/dL Troponin I 0.770 H* (0.000-0.034) ng/mL Total Protein (6.3-8.2) g/dL Albumin (3.5-5.0) g/dL Urine Protein 1+ H (Negative) Hyaline Casts 7 H (0-2) /lpf Urine Mucus Rare H (None) /hpf 05/08/20 05/08/20 05/08/20 Range/Units 01:30 01:30 08:18 MCHC 30.9 L (31.0-37.0) g/dL Lymphocytes # 0.5 L (1.0-4.8) k/uL APTT 57.1 H (22.0-30.0) sec BUN (9-20) mg/dL Creatinine (0.66-1.25) mg/dL Troponin I 0.683 H* (0.000-0.034) ng/mL Total Protein (6.3-8.2) g/dL Albumin (3.5-5.0) g/dL Urine Protein (Negative) Hyaline Casts (0-2) /lpf Urine Mucus (None) /hpf 05/08/20 Range/Units 08:18 MCHC (31.0-37.0) g/dL Lymphocytes # (1.0-4.8) k/uL APTT (22.0-30.0) sec BUN 36 H (9-20) mg/dL Creatinine 1.92 H (0.66-1.25) mg/dL Troponin I (0.000-0.034) ng/mL Total Protein 5.8 L (6.3-8.2) g/dL Albumin 2.9 L (3.5-5.0) g/dL Urine Protein (Negative) Hyaline Casts (0-2) /lpf Urine Mucus (None) /hpf Assessment and Plan Plan: 1 severe dyspnea and shortness of breath with acute respiratory failure: [place] of acute exacerbation of systolic congestive heart failure with chronic heart failure severe LV dysfunction of under 20%. Patient will need Mario inhibition once creatinine improves, IV Lasix for now, hydralazine and Imdur, labetalol 100 mg twice a day 2 systolic dysfunction congestive heart failure with worsening symptoms, mostly from noncompliant to medication and probably from worsening alcoholic cardiopathy, patient was supposed to be on furosemide daily along with hydralazine and isosorbide has not taking her medication in several months he has over 40 pounds weight gain since. Patient will be hospitalized continue IV furosemide 40 mg every 8 hours continue nitro back on his hydralazine patient will need smaller dose of beta kaycee as well. Can add Aldactone to reduce the watch retention and anasarca quickly. Echocardiogram will be performed and consult cardiology. 3. Proteinuria with cardiorenal syndrome, alcoholic cardiomyopathy, cannot rule out nephrotic syndrome, patient's on IV diuretics, patient might need 24-hour urine protein evaluation, obtain CATRACHITO mario level serum protein electrophoresis and immunofixation 4. Left renal mass, patient needs contrast studies, we'll going to obtain CAT scan without contrast of the kidney, no current microscopic hematuria, might need urology consultation 5. Left atrial thrombus, patient was given IV heparin, and now transitioned to oraeliquis 5 mg twice a day, cardiology is following the patient 3 alcoholic cardiopathy severe systolic dysfunction EF of under 20%: With much worsening symptoms, patient claimed he quit drinking recently not a clear at this point and echocardiogram compared to the one in 2017 to see if there is any worsening sign and symptom of contractility with ejection fraction. 4 hypertension: Has not been taking his medication for over 6 month his blood pressure was moderately elevated continue hydralazine continue furosemide Will add Aldactone at this point and labetalol 100 mg twice a day discontinue amlodipine secondary to edema Imdur 60 mg daily 5 acute kidney injury with chronic kidney disease: Creatinine is up to 2.0 with GFR less than 30 continue to watch daily chemistry. 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 7 elevated lactic acid: Not a clear etiology most likely metabolic acidosis from worsening heart failure and hypoperfusion continue IV diuretics and recheck lactic acid. 8 GI prophylaxis: Patient will be on pantoprazole 40 mg daily. 9 DVT prophylaxis: Patient will be on heparin 5000 units subcu in his twice a day. 10 most likely obstructive sleep apnea: With no study in the past patient need to have an arrange outpatient sleep study for further management. CODE STATUS: Full code. Admit patient to the inpatient service for more than 2 night stay.
--- NOTE | 2020-05-08 17:41 | CT ---
EXAMINATION TYPE: CT kidney stone wo con DATE OF EXAM: 05/08/2020 COMPARISON: None HISTORY: Abdominal distension and discomfort. CT DLP: 1453.4 mGycm Automated exposure control for dose reduction was used. Heart is enlarged. The lung bases are clear of consolidation. There is no pleural effusion. Liver and spleen appear intact. There is no evidence of pancreatic mass. Gallbladder is somewhat cont racted. The stomach is intact. There is mild groundglass patchy interstitial infiltrate in the lower lung cloud. There is no adrenal mass. Kidneys have normal size and contour. There is no hydronephrosis. Ureters a re not dilated. Bladder distends smoothly. There is no inguinal hernia. There is no evidence of a pel rj mass. There is mild abdominal ascites. There is fluid in the left paracolic gutter and around the spleen. There is small amount of free fluid in the pelvis. There is extensive subcutaneous edema michael und the abdomen. There is no evidence of free air. There is no evidence of a bowel obstruction. Appendix not definitel y seen. No sign of thickened appendix. The lumbar vertebra have normal spacing and alignment. Posterior elements are intact. Facet joints ar e intact. Bony pelvis is intact. IMPRESSION: Extensive subcutaneous edema around the abdomen. Cardiomegaly and pulmonary interstitial groundglass infiltrate. Mild abdominal ascites. This could relate to congestive heart failure.
[2020-05-09] MEDS ORDERED: FUROSEMIDE 10 MG/ML 4 ML VIAL IV SCH (04:00)
[2020-05-09 05:52] LABS: Basophils % (A) 0 %; Eosinophils # (A) 0.1 k/uL (0-0.7); Eosinophils % (A) 1 %; HCT 48.7 % (39.0-53.0); HGB 15.3 gm/dL (13.0-17.5); Lymphocytes # (A) 0.4 k/uL (1.0-4.8); Lymphocytes % (A) 6 %; MCH 28.5 pg (25.0-35.0); MCHC 31.3 g/dL (31.0-37.0); MCV 91.1 fL (80.0-100.0); Mean Platelet Volume 7.9; Monocytes # (A) 0.6 k/uL (0-1.0); Monocytes % (A) 8 %; Neutrophils # (A) 5.9 k/uL (1.3-7.7); Neutrophils % (A) 83 %; Platelet Count 212 k/uL (150-450); RBC 5.35 m/uL (4.30-5.90); RDW 14.9 % (11.5-15.5); WBC 7.1 k/uL (3.8-10.6)
[2020-05-09 06:14] LABS: Calcium 8.9 mg/dL (8.4-10.2); Magnesium 1.9 mg/dL (1.6-2.3); Potassium 2.9 mmol/L (3.5-5.1)
[2020-05-09] MEDS: FUROSEMIDE 100 MG in SODIUM CHLORIDE 0.9% 90 ML IV SCH ×3 (06:28→15:56)
[2020-05-09] MEDS: PANTOPRAZOLE 40 MG TABLET PO SCH (06:28)
[2020-05-09] MEDS: POTASSIUM CHLORIDE ER 20 MEQ TAB.ER PO SCH ×5 (07:55→15:56)
[2020-05-09] MEDS: APIXABAN 5 MG TAB PO SCH ×2 (07:56→21:25)
[2020-05-09] MEDS: hydrALAZINE HCL 25 MG TAB PO SCH ×3 (07:56→21:26)
[2020-05-09] MEDS: SPIRONOLACTONE 25 MG TAB PO SCH (07:56)
[2020-05-09] MEDS: ISOSORBIDE MONONITRATE ER 60 MG TAB.ER.24H PO SCH (07:56)
[2020-05-09] MEDS: METOLAZONE 5 MG TAB PO SCH (07:57)
[2020-05-09] MEDS: LABETALOL 100 MG TAB PO SCH ×2 (07:57→21:35)
[2020-05-09] MEDS: NON FORMULARY DRUG (Ubidecarenone [Co Q-10] 100 MG) PO SCH (07:57)
--- NOTE | 2020-05-09 08:47 | P.PN ---
Subjective Patient is seen in follow for acute kidney injury. Renal function is improving with diuresis. He is maintained on Lasix drip and metolazone. Urine output over 5 L in the last 24 hours. Edema gradually improving. Patient feels better today. No chest pain or shortness of breath at this time. Vital signs are stable. General: The patient appeared well nourished and normally developed. HEENT: Head exam is unremarkable. Neck is without jugular venous distension. LUNGS: Lungs are clear to auscultation and percussion. Breath sounds decreased. HEART: Rate and Rhythm are regular. ABDOMEN: Soft, nontender. EXTREMITITES: 3+ edema. Objective - Vital Signs Vital signs: Vital Signs Temp 97.5 F L 05/09/20 07:46 Pulse 87 05/09/20 07:46 Resp 18 05/09/20 07:46 BP 140/84 05/09/20 07:46 Pulse Ox 92 L 05/09/20 07:46 Intake & Output 05/08/20 05/09/20 05/09/20 18:59 06:59 18:59 Intake Total 784.833 100 133.667 Output Total 5925 6675 250 Balance -5140.167 -6575 -116.333 Weight 124.9 kg 116.7 kg Intake: IV 100 Furosemide 100 mg In 20 Sodium Chloride 0.9% 90 ml @ 10 MG/HR 10 mls/hr IV .Q10H JEEVAN Rx#: [id number] Heparin Sod,Pork in 0.45% 80 NaCl 25,000 unit In 0.45 % NaCl 1 250ml.bag @ 7.52 UNITS/KG/HR 9.994 mls/hr IV .Q24H JEEVAN Rx#: [id number] Intake, IV Titration 84.833 100 15.667 Amount Furosemide 100 mg In 84.833 100 15.667 Sodium Chloride 0.9% 90 ml @ 10 MG/HR 10 mls/hr IV .Q10H JEEVAN Rx#: [id number] Oral 600 118 Output: Urine 5925 6675 250 Other: Voiding Method Urinal Urinal Urinal # Voids 2 - Labs CBC & Chem 7: 05/09/20 05:29 05/09/20 05:29 Labs: Abnormal Lab Results - Last 24 Hours (Table) 05/08/20 05/08/20 05/09/20 Range/Units 08:18 08:18 05:29 MCHC 30.9 L (31.0-37.0) g/dL Lymphocytes # 0.5 L 0.4 L (1.0-4.8) k/uL Sodium (137-145) mmol/L Potassium (3.5-5.1) mmol/L Chloride (98-107) mmol/L Carbon Dioxide (22-30) mmol/L BUN 36 H (9-20) mg/dL Creatinine 1.92 H (0.66-1.25) mg/dL Total Protein 5.8 L (6.3-8.2) g/dL Albumin 2.9 L (3.5-5.0) g/dL 05/09/20 Range/Units 05:29 MCHC (31.0-37.0) g/dL Lymphocytes # (1.0-4.8) k/uL Sodium 136 L (137-145) mmol/L Potassium 2.9 L (3.5-5.1) mmol/L Chloride 90 L (98-107) mmol/L Carbon Dioxide 38 H (22-30) mmol/L BUN 34 H (9-20) mg/dL Creatinine 1.66 H (0.66-1.25) mg/dL Total Protein (6.3-8.2) g/dL Albumin (3.5-5.0) g/dL Assessment and Plan Plan: Assessment: 1. Acute kidney injury mostly prerenal secondary to cardiorenal syndrome. Creatinine 2.03 on admission and is down to 1.66. Creatinine November 2017 was 1. Proteinuria noted on UA. 2. Acute on chronic systolic CHF with ejection fraction of less than 20% with severe pulmonary hypertension. 3. Volume overload. Improving with diuresis. 4. Benign hypertension. Controlled. 5. Left renal mass noted on ultrasound. However no mass noted on CT. 6. Hypokalemia secondary to diuresis. Magnesium normal. Plan: Maintain Lasix drip at 10 mL an hour. Continue metolazone 5 mg once daily. Daily weights. Strict is and os. Low-salt diet and 1500 mL fluid restriction. Continue to monitor renal function and urine output. Potassium being replaced. Quantify proteinuria.
[2020-05-09 10:54] LABS: Protein/Creatinine Ratio,Urine 1.139
--- NOTE | 2020-05-09 12:19 | P.PN ---
Subjective Progress Note Date: 05/09/20 This is a 49-year-old gentleman with documented history of hypertension, nonischemic cardiomyopathy with documented ejection fraction of less than 20%, no history of diabetes or hyperlipidemia, he is a nonsmoker, he does have a history of significant alcohol use which was felt originally to be t he cause of his cardiomyopathy. According to the patient, he has not taken any of his medications for the past 3 weeks. He presents to the emergency room with symptoms of significant weight gain, bilateral lower extremity edema and shortness of breath. His chest x-ray on presentation here showed mild volume overload and early pulmonary edema. EKG shows a sinus tachycardia with nonspecific ST-T wave changes. An echocardiogram with Doppler study was performed here which revealed an LV function of less than 20%. There is evidence of thrombus in the apex. Small generalized pericardial effusion. I pressure on presentation here 203/142, heart rate 118, temperature 98.5, 97% on room air. Blood pressure this morning 172/116, heart rate in the 90s, 96% on room air. White blood cell count 5.9, hemoglobin 14.9, platelet count 213. Sodium 138, potassium 3.9, BUN 36, creatinine 1.9, yesterday's BUN was 37 with a creatinine of 2.0. BNP level 30,700. Troponin 0.69, 0.77, 0.68. Tucker virus not detected. The patient was initiated on IV push Lasix in the emergency room, we will discontinue the IV push Lasix and start the patient on a Lasix drip. Because of the known cardiomyopathy with documented ejection fraction of less than 20%, we will discontinue the Norvasc, patient was also on 2 beta blockers, we'll discontinue the metoprolol and continue with the labetalol for now. Incr ease dose of hydralazine increased dose of Imdur and attempt to optimize blood pressure control. Patient is not currently on an DARSHAN inhibitor because of abnormal renal function. Patient has also been seen in consultation by nephrology and initiated on Zaroxolyn. 05/09/2020 Patient seen and examined this morning, he diuresed over 5 L through the night last night and feels significantly better today. Continues to have quite a bit of peripheral edema. Blood pressure also significantly improved today, 120/70 with a heart rate in the 70s, 94% on room air. White blood cell count 7.1, hemoglobin 15.3, platelet count 212. Sodium 136, potassium 2.9, BUN 34, creatinine 1.6. Patient continues to be on IV Lasix drip along with Zaroxolyn. Objective - Vital Signs Vital signs: Vital Signs Temp 97.8 F 05/09/20 11:40 Pulse 78 05/09/20 11:40 Resp 18 05/09/20 11:40 BP 119/75 05/09/20 11:40 Pulse Ox 94 L 05/09/20 11:40 Intake & Output 05/08/20 05/09/20 05/09/20 18:59 06:59 18:59 Intake Total 784.833 100 753.667 Output Total 5925 6675 1075 Balance -5140.167 -6575 -321.333 Weight 124.9 kg 116.7 kg Intake: IV 100 80 Furosemide 100 mg In 20 80 Sodium Chloride 0.9% 90 ml @ 10 MG/HR 10 mls/hr IV .Q10H JEEVAN Rx#: [id number] Heparin Sod,Pork in 0.45% 80 NaCl 25,000 unit In 0.45 % NaCl 1 250ml.bag @ 7.52 UNITS/KG/HR 9.994 mls/hr IV .Q24H JEEVAN Rx#: [id number] Intake, IV Titration 84.833 100 15.667 Amount Furosemide 100 mg In 84.833 100 15.667 Sodium Chloride 0.9% 90 ml @ 10 MG/HR 10 mls/hr IV .Q10H JEEVAN Rx#: [id number] Oral 600 658 Output: Urine 5925 6675 1075 Other: Voiding Method Urinal Urinal Urinal # Voids 2 - Exam PHYSICAL EXAMINATION: GENERAL: 49-year-old gentleman in no acute distress at the time of my examination HEENT: Head is atraumatic, normocephalic. Pupils equal, round. Sclera anicteric. Conjunctiva are clear. Mucous membranes of the mouth are moist. Neck is supple. There is elevated jugular venous pressure. No carotid bruit is heard. HEART EXAMINATION: Heart S1, S2 normal. No murmur or gallop heard. CHEST EXAMINATION: Lungs reveal diminished air entry to the bases bilaterally ABDOMEN: Soft, obese, nontender. Bowel sounds are heard. No organomegaly noted. EXTREMITIES: 2+ peripheral pulses with 2+ evidence of peripheral edema and no calf tenderness noted. NEUROLOGIC patient is awake, alert and oriented 3 . - Labs CBC & Chem 7: 05/09/20 05:29 05/09/20 05:29 Labs: Abnormal Lab Results - Last 24 Hours (Table) 05/09/20 05/09/20 Range/Units 05:29 05:29 Lymphocytes # 0.4 L (1.0-4.8) k/uL Sodium 136 L (137-145) mmol/L Potassium 2.9 L (3.5-5.1) mmol/L Chloride 90 L (98-107) mmol/L Carbon Dioxide 38 H (22-30) mmol/L BUN 34 H (9-20) mg/dL Creatinine 1.66 H (0.66-1.25) mg/dL Assessment and Plan Plan: Assessment and plan #1 systolic congestive heart failure acute on chronic #2 nonischemic cardio myopathy with documented ejection fraction of less than 20% #3 evidence of apical thrombus #4 hypertensive urgency #5 noncompliance with medication, patient has not taken any medications for the past 3 weeks #6 history of EtOH abuse Plan From cardiology's perspective, we'll continue the patient on current dose of IV Lasix drip, continue to monitor the intake and output along with daily weights and daily lytes BUN and creatinine. DNP note has been reviewed, I agree with a documented findings and plan of care. Patient was seen and examined.
[2020-05-09] MEDS ORDERED: Potassium Replacement Protocol 1 EACH MISC MISCELLANE PRN (14:55)
--- NOTE | 2020-05-09 15:53 | P.PN ---
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 Patient used to drink heavily between 6-12 beers a day for many years. Patient was placed on multi-medication for his heart failure supposed to see his primary care and cardiology regular basis which patient has not seen anyone for the last 12 month has not in on any medication including diuretics or MARIO inhibitor for over 6 months. Resented with over 40 pounds weight gain if can't dyspnea and shortness of breath with anasarca edema and sig nificant ascites patient was diagnosed with acute exacerbation of CHF on a chronic CHF with cardiomyopathy he was started on IV Lasix and will be hospitalized. 05/08: Patient feels better, with regards to shortness of breath, however significant edema still present, he seemed to have noticed some improvement., Patient denies any chest pain or palpitations or PND, however he does have minimal dyspnea and exertion. His echocardiogram shows resting tachycardia over 100, has moderate concentric LVH, severely impaired systolic function with EF of under 20%, LA dilated, mild aortic valve sclerosis without stenosis, right ventricular systolic pressure of 66, small generalized pericardial effusion noted patient is seen by cardiology and pulmonary, and nephrology, patient has not yet optimized secondary to abnormal renal function, patient would need to be on MARIO inhibitor she, patient is now on Zaroxolyn, and IV Lasix drip at 10 mics per hour, patient is on labetalol 100 mg twice a day for blood pressure control, patient is off amlodipine and to significant edema. Patient is committed to abstaining from alcohol permanently, urinalysis shows +1 proteinuria, albumin is low at 2.9, troponin is 0.68 3.770, current creatinine of 1.9, BUN of 36 abdominal ultrasound showing left lower pole renal mass, requiring CT investigation, no hydronephrosis, we'll going to request CT of the kidneys, no contrast at this time secondary to abnormal renal function patient might need urology, however there is no gross hematuria or microscopic hematuria noted. Blood pressure improved to systolic of 140-160, heart rate of 84 nonlabored breathing pulse ox 96% on room air standby O2 05/09: Patient is diuresing very well, has lost approximately 8 kg, wheeze negative fluid balance with IV Lasix, Zaroxolyn, we added spironolactone 25 mg daily, and the hypokalemia, potassium replaced, with maintenance 40 mg daily, CAT scan of the abdomen without contrast failed to reveal any renal mass that was initially seen, patient continues to improve with improvement of shortness of breath, no melena, which she sure, sleep is okay, no GI distress, and no focal neurologic deficits. Review of Systems CONSTITUTIONAL: Well-developed mild respiratory distress. Morbidly obese EYES: No icterus sclerae, no conjunctivitis. EARS, NOSE, MOUTH, THROAT, and FACE: No sore throat, lymphadenopathy, carotid bruits or deformity. RESPIRATORY: Severe dyspnea and shortness of breath. CARDIOVASCULAR: Positive PND orthopnea palpitation with severe cardiopathy. GASTROINTESTINAL: No Abd pain, Nausea or vomiting, no Diarrhea or constipation, No GI Bleed, no distention or masses. Significant abdominal distention. GENITOURINARY: Negative for Hematuria or UTI, no kidney stones. Multi-urin ation. INTEGUMENT/BREAST: Negative for any muscular injury with mild osteoarthritis.. HEMATOLOGIC/LYMPHATIC: Negative for bleed or purpura. MUSCULOSKELTAL: Negative for Myalgia or arthralgia. NEURLOGICAL: No LOC, Sz or syncope, blurred vision dizziness or abnormality.. BEHAVIORAL/PSYCH: Negative. ENDOCRINE: Negative. Objective - Vital Signs Vital signs: Vital Signs Temp 97.5 F L 05/09/20 15:08 Pulse 83 05/09/20 15:08 Resp 18 05/09/20 15:08 BP 129/82 05/09/20 15:08 Pulse Ox 94 L 05/09/20 15:08 Intake & Output 05/08/20 05/09/20 05/09/20 18:59 06:59 18:59 Intake Total 784.833 100 993.667 Output Total 5392 6838 0197 Balance -5140.748 -8424 -1081.333 Weight 124.9 kg 116.7 kg Intake: IV 100 80 Furosemide 100 mg In 20 80 Sodium Chloride 0.9% 90 ml @ 10 MG/HR 10 mls/hr IV .Q10H [facility] Rx#: [id number] Heparin Sod,Pork in 0.45% 80 NaCl 25,000 unit In 0.45 % NaCl 1 250ml.bag @ 7.52 UNITS/KG/HR 9.994 mls/hr IV .Q24H [facility] Rx#: [id number] Intake, IV Titration 84.833 100 15.667 Amount Furosemide 100 mg In 84.833 100 15.667 Sodium Chloride 0.9% 90 ml @ 10 MG/HR 10 mls/hr IV .Q10H [facility] Rx#: [id number] Oral 600 898 Output: Urine 5925 3051 2075 Other: Voiding Method Urinal Urinal Urinal # Voids 2 - Constitutional General appearance: Present: cooperative, obese - EENT Eyes: Present: anicteric sclerae, dentition normal, normal appearance - Neck Neck: Present: normal ROM - Respiratory Respiratory: bilateral: CTA, negative: diminished, dullness, rales - Cardiovascular Rhythm: regular Heart sounds: normal: S1, S2 Abnormal Heart Sounds: Present: systolic murmur - Peripheral edema leg Peripheral Edema: bilateral: 4+, Pitting - Integumentary Integumentary: Present: flushed, normal - Neurologic Neurologic: Present: CNII-XII intact - Musculoskeletal Musculoskeletal: Present: gait normal, strength equal bilaterally - Psychiatric Psychiatric: Present: A&O x's 3, appropriate affect, intact judgment & insight - Labs CBC & Chem 7: 05/09/20 05:29 05/09/20 14:00 Labs: Abnormal Lab Results - Last 24 Hours (Table) 05/09/20 05/09/20 05/09/20 Range/Units 05:29 05:29 14:00 Lymphocytes # 0.4 L (1.0-4.8) k/uL Sodium 136 L (137-145) mmol/L Potassium 2.9 L 3.4 L (3.5-5.1) mmol/L Chloride 90 L (98-107) mmol/L Carbon Dioxide 38 H (22-30) mmol/L BUN 34 H (9-20) mg/dL Creatinine 1.66 H (0.66-1.25) mg/dL Assessment and Plan Plan: 1 severe dyspnea and shortness of breath with acute respiratory failure anasarca: Combination of acute exacerbation of systolic congestive heart failure with chronic heart failure severe LV dysfunction of under 20%. Patient will need Mario inhibition once creatinine improves, IV Lasix for now, hydralazine and Imdur, labetalol 100 mg twice a day 2 systolic dysfunction congestive heart failure with worsening symptoms, mostly from noncompliant to medication and probably from worsening alcoholic cardiopathy, patient was supposed to be on furosemide daily along with hydralazine and isosorbide has not taking her medication in several months he has over 40 pounds weight gain since. Patient will be hospitalized continue IV furosemide 40 mg every 8 hours continue nitro back on his hydralazine patient will need smaller dose of beta kaycee as well. Can add Aldactone to reduce the watch retention and anasarca quickly. Echocardiogram will be performed and consult cardiology. Spironolactone 25 mg daily 3. Proteinuria with cardiorenal syndrome, alcoholic cardiomyopathy, cannot rule out nephrotic syndrome, patient's on IV diuretics, patient might need 24-hour urine protein evaluation, obtain CATRACHITO mario level serum protein electrophoresis and immunofixation 4. Left renal mass, patient needs contrast studies, we'll going to obtain CAT scan without contrast of the kidney, initial scan shows to reveal any renal masses, no current microscopic hematuria, might need urology consultation 5. Left atrial thrombus, patient was given IV heparin, and now transitioned to oraeliquis 5 mg twice a day, cardiology is following the patient 3 alcoholic cardiopathy severe systolic dysfunction EF of under 20%: With much worsening symptoms, patient claimed he quit drinking recently not a clear at this point and echocardiogram compared to the one in 2017 to see if there is any worsening sign and symptom of contractility with ejection fraction. 4 hypertension: Has not been taking his medication for over 6 month his blood pressure was moderately elevated continue hydralazine continue furosemide Will add Aldactone at this point and labetalol 100 mg twice a day discontinue amlodipine secondary to edema Imdur 60 mg daily 5 acute kidney injury with chronic kidney disease: Creatinine is up to 2.0 with GFR less than 30 continue to watch daily chemistry. 6 mildly elevated troponin, possible of non-ST [place] echocardiogram will consult cardiology if troponin is worsening patient might need to go to the grass farm laborer. 7 elevated lactic acid: Not a clear etiology most likely metabolic acidosis from worsening heart failure and hypoperfusion continue IV diuretics and recheck lactic acid. 8 GI prophylaxis: Patient will be on pantoprazole 40 mg daily. 9 DVT prophylaxis: Patient will be on heparin 5000 units subcu in his twice a day. 10. Mild abdominal ascites with extensive anasarca, IV diuresing, 10 most likely obstructive sleep apnea: With no study in the past patient need to have an arrange outpatient sleep study for further management. CODE STATUS: Full code. Admit patient to the inpatient service for more than 2 night stay.
[2020-05-10] MEDS: FUROSEMIDE 100 MG in SODIUM CHLORIDE 0.9% 90 ML IV SCH ×2 (01:38→11:50)
[2020-05-10] MEDS: PANTOPRAZOLE 40 MG TABLET PO SCH (06:17)
[2020-05-10 07:15] LABS: Basophils % (A) 1 %; Eosinophils # (A) 0.1 k/uL (0-0.7); Eosinophils % (A) 1 %; HGB 16.3 gm/dL (13.0-17.5); Hypochromasia Slight; Lymphocytes # (A) 0.5 k/uL (1.0-4.8); Lymphocytes % (A) 8 %; MCH 29.6 pg (25.0-35.0); MCV 92.5 fL (80.0-100.0); Mean Platelet Volume 8.2; Monocytes # (A) 0.8 k/uL (0-1.0); Monocytes % (A) 11 %; Neutrophils # (A) 5.5 k/uL (1.3-7.7); Neutrophils % (A) 78 %; Platelet Count 250 k/uL (150-450); RBC 5.51 m/uL (4.30-5.90); RDW 14.9 % (11.5-15.5); WBC 7.1 k/uL (3.8-10.6)
[2020-05-10 07:22] LABS: Calcium 9.3 mg/dL (8.4-10.2); Potassium 3.9 mmol/L (3.5-5.1)
[2020-05-10] MEDS: POTASSIUM CHLORIDE ER 20 MEQ TAB.ER PO SCH (09:19)
[2020-05-10] MEDS: LABETALOL 100 MG TAB PO SCH ×2 (09:19→20:57)
[2020-05-10] MEDS: APIXABAN 5 MG TAB PO SCH ×2 (09:19→20:58)
[2020-05-10] MEDS: METOLAZONE 5 MG TAB PO SCH (09:19)
[2020-05-10] MEDS: hydrALAZINE HCL 25 MG TAB PO SCH ×3 (09:19→20:57)
[2020-05-10] MEDS: ISOSORBIDE MONONITRATE ER 60 MG TAB.ER.24H PO SCH (09:20)
[2020-05-10] MEDS: SPIRONOLACTONE 25 MG TAB PO SCH (09:20)
[2020-05-10] MEDS: NON FORMULARY DRUG (Ubidecarenone [Co Q-10] 100 MG) PO SCH (09:20)
--- NOTE | 2020-05-10 09:45 | XR ---
EXAMINATION TYPE: XR chest 2V DATE OF EXAM: 05/10/2020 COMPARISON: 05/07/2020 HISTORY: 49-year-old male follow-up CHF TECHNIQUE: PA and lateral views FINDINGS: Heart mildly enlarged. Mild interstitial and vascular prominence. No consolidation or pleural effusio n. IMPRESSION: There may be residual mild pulmonary vascular congestion. Aeration shows improvement from prior exam.
--- NOTE | 2020-05-10 11:18 | P.PN ---
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 Patient used to drink heavily between 6-12 beers a day for many years. Patient was placed on multi-medication for his heart failure supposed to see his primary care and cardiology regular basis which patient has not seen anyone for the last 12 month has not in on any medication including diuretics or MARIO inhibitor for over 6 months. Resented with over 40 pounds weight gain if can't dyspnea and shortness of breath with anasarca edema and significant ascites patient was diagnosed with acute exacerbation of CHF on a chronic CHF with cardiomyopathy he was started on IV Lasix and will be hospitalized. 05/08: Patient feels better, with regards to shortness of breath, however significant edema still present, he seemed to have noticed some improvement., Patient denies any chest pain or palpitations or PND, however he does have minimal dyspnea and exertion. His echocardiogram shows resting tachycardia over 100, has moderate concentric LVH, severely impaired systolic function with EF of under 20%, LA dilated, mild aortic valve sclerosis without stenosis, right ventricular systolic pressure of 66, small generalized pericardial effusion noted patient is seen by cardiology and pulmonary, and nephrology, patient has not yet optimized secondary to abnormal renal function, patient would need to be on MARIO inhibitor she, patient is now on Zaroxolyn, and IV Lasix drip at 10 mics per hour, patient is on labetalol 100 mg twice a day for blood pressure control, patient is off amlodipine and to significant edema. Patient is committed to abstaining from alcohol permanently, urinalysis shows +1 proteinuria, albumin is low at 2.9, troponin is 0.68 3.770, current creatinine of 1.9, BUN of 36 abdominal ultrasound showing left lower pole renal mass, requiring CT investigation, no hydronephrosis, we'll going to request CT of the kidneys, no contrast at this time secondary to abnormal renal function patient might need urology, however there is no gross hematuria or microscopic hematuria noted. Blood pressure improved to systolic of 140-160, heart rate of 84 nonlabored susan thing pulse ox 96% on room air standby O2 05/09: Patient is diuresing very well, has lost approximately 8 kg, wheeze negative fluid balance with IV Lasix, Zaroxolyn, we added spironolactone 25 mg daily, and the hypokalemia, potassium replaced, with maintenance 40 mg daily, CAT scan of the abdomen without contrast failed to reveal any renal mass that was initially seen, patient continues to improve with improvement of shortness of breath, no melena, which she sure, sleep is okay, no GI distress, and no focal neurologic deficits. 05/10: Patient was evaluated this morning, sitting up in bedside chair. States he is feeling a lot better this morning. States edema and shortness of breath have improved significantly. Weight this morning is 106.6 kg down a total of 26.3 kg from admission weight of 132.9kg. Remains on IV Lasix drip until this evening per cardiology's note and will change to P.O. tomorrow, will continue on Metolazone 5mg daily along with Spironolactone 25mg daily. Kidney function down slightly from yesterday, Cr 1.79, BUN 31, hypokalemia has improved, potassium is 3.9. Blood pressure has improved 141/88 with a heart rate of 78, afebrile 98.0, 93% on room air. Repeat chest x-ray showed mild residual pulmonary vascular congestion and improved aeration from prior exam. Objective - Vital Signs Vital signs: Vital Signs Temp 98.0 F 05/10/20 09:10 Pulse 78 05/10/20 09:10 Resp 18 05/10/20 09:10 BP 141/88 05/10/20 09:10 Pulse Ox 93 L 05/10/20 09:10 Intake & Output 05/09/20 05/10/20 05/10/20 18:59 06:59 18:59 Intake Total 1072.667 327 Output Total 3400 4050 Balance -8327.333 -4633 Weight 106.6 kg Intake: IV 80 80 Furosemide 100 mg In 80 80 Sodium Chloride 0.9% 90 ml @ 10 MG/HR 10 mls/hr IV .Q10H [facility] Rx#: [id number] Intake, IV Titration 94.667 97 Amount Furosemide 100 mg In 94.667 97 Sodium Chloride 0.9% 90 ml @ 10 MG/HR 10 mls/hr IV .Q10H [facility] Rx#: [id number] Oral 898 150 Output: Urine 3400 4050 Other: Voiding Method Urinal Urinal # Voids 2 - Exam - Constitutional General appearance: Present: cooperative, obese - EENT Eyes: Present: anicteric sclerae, dentition normal, normal appearance - Neck Neck: Present: normal ROM - Respiratory Respiratory: bilateral: CTA, negative: diminished, dullness, rales - Cardiovascular Rhythm: regular Heart sounds: normal: S1, S2 Abnormal Heart Sounds: Present: systolic murmur - Peripheral edema leg Peripheral Edema: bilateral: 3+, Pitting - Integumentary Integumentary: Present: flushed, normal - Neurologic Neurologic: Present: CNII-XII intact - Musculoskeletal Musculoskeletal: Present: gait normal, strength equal bilaterally - Psychiatric Psychiatric: Present: A&O x's 3, appropriate affect, intact judgment & insight - Labs CBC & Chem 7: 05/12/20 05:44 05/12/20 05:44 Labs: Abnormal Lab Results - Last 24 Hours (Table) 05/09/20 05/10/20 05/10/20 Range/Units 14:00 06:19 06:19 Lymphocytes # 0.5 L (1.0-4.8) k/uL Sodium 134 L (137-145) mmol/L Potassium 3.4 L (3.5-5.1) mmol/L Chloride 83 L (98-107) mmol/L Carbon Dioxide 44 H* (22-30) mmol/L BUN 31 H (9-20) mg/dL Creatinine 1.79 H (0.66-1.25) mg/dL Assessment and Plan Plan: 1 severe dyspnea and shortness of breath with acute respiratory failure anasarca: Combination of acute exacerbation of systolic congestive heart failure with chronic heart failure severe LV dysfunction of under 20%. Patient will need Mario inhibition once creatinine improves, IV Lasix for now, hydralazine and Imdur, labetalol 100 mg twice a day, Metolazone 5mg daily, and Aldactone 25mg daily. Weight is down 26.3 kg from admission. 2 systolic dysfunction congestive heart failure with worsening symptoms, mostly from noncompliant to medication and probably from worsening alcoholic Cardiomyopathy, patient was supposed to be on furosemide daily along with hydralazine and isosorbide has not taking her medication in several months. Continue IV furosemide, nitro, hydralazine, Aldactone, Metolazone, Imdur, and Labetalol, watch retention and anasarca. Echocardiogram completed 3. Proteinuria with cardiorenal syndrome, alcoholic cardiomyopathy, cannot rule out nephrotic syndrome, patient's on IV diuretics, patient might need 24-hour urine protein evaluation, obtain CATRACHITO mario level serum protein electrophoresis and immunofixation 4. Left renal mass noted on u/s, CAT scan without contrast of the kidney obtained and mass was ruled out. 5. Left atrial thrombus, patient was given IV heparin, and now transitioned to oral eliquis 5 mg twice a day, cardiology is on consult 3 alcoholic cardiopathy severe systolic dysfunction EF of under 20%: With much worsening symptoms, patient claimed he quit drinking a few months ago, echocardiogram updated, shows EF <20% 4 hypertension: Has not been taking his medication for over 6 month his blood pressure was moderately elevated, has been much better, will continue on IV Lasix, Hydralazine 75mg TID as well as PRN, Imdur 60mg daily, Labetalol 100mg BID, Aldactone 25mg daily, and metolazone 5mg daily. 5 acute kidney injury with chronic kidney disease: Creatinine was up to 2.0 with GFR less than 30 continue to watch daily chemistry, kidney function is improving nephrology is on consult. 6 mildly elevated troponin, possible of non-ST [place] echocardiogram will consult cardiology if troponin is worsening patient might need to go to the oil laboratory analyst. 7 elevated lactic acid: Not a clear etiology most likely metabolic acidosis from worsening heart failure and hypoperfusion continue IV diuretics and recheck lactic acid. 8 GI prophylaxis: Patient will be on pantoprazole 40 mg daily. 9 DVT prophylaxis: On Eliquis 5mg BID 10. Mild abdominal ascites with extensive anasarca, Metolazone, Aldactone and IV Lasix 10 most likely obstructive sleep apnea: With no study in the past patient need to have an arrange outpatient sleep study for further management. CODE STATUS: Full code. The above impression and plan of care have been discussed and directed by sign ing physician. Lucila Cole nurse practitioner acting as scribe for signing physician.
--- NOTE | 2020-05-10 11:20 | P.PN ---
Subjective Progress Note Date: 05/10/20 This is a 49-year-old gentleman with documented history of hypertension, nonischemic cardiomyopathy with documented ejection fraction of less than 20%, no history of diabetes or hyperlipidemia, he is a nonsmoker, he does have a history of significant alcohol use which was felt originally to be t he cause of his cardiomyopathy. According to the patient, he has not taken any of his medications for the past 3 weeks. He presents to the emergency room with symptoms of significant weight gain, bilateral lower extremity edema and shortness of breath. His chest x-ray on presentation here showed mild volume overload and early pulmonary edema. EKG shows a sinus tachycardia with nonspecific ST-T wave changes. An echocardiogram with Doppler study was performed here which revealed an LV function of less than 20%. There is evidence of thrombus in the apex. Small generalized pericardial effusion. I pressure on presentation here 203/142, heart rate 118, temperature 98.5, 97% on room air. Blood pressure this morning 172/116, heart rate in the 90s, 96% on room air. White blood cell count 5.9, hemoglobin 14.9, platelet count 213. Sodium 138, potassium 3.9, BUN 36, creatinine 1.9, yesterday's BUN was 37 with a creatinine of 2.0. BNP level 30,700. Troponin 0.69, 0.77, 0.68. Tucker virus not detected. The patient was initiated on IV push Lasix in the emergency room, we will discontinue the IV push Lasix and start the patient on a Lasix drip. Because of the known cardiomyopathy with documented ejection fraction of less than 20%, we will discontinue the Norvasc, patient was also on 2 beta blockers, we'll discontinue the metoprolol and continue with the labetalol for now. Incr ease dose of hydralazine increased dose of Imdur and attempt to optimize blood pressure control. Patient is not currently on an DARSHAN inhibitor because of abnormal renal function. Patient has also been seen in consultation by nephrology and initiated on Zaroxolyn. 05/09/2020 Patient seen and examined this morning, he diuresed over 5 L through the night last night and feels significantly better today. Continues to have quite a bit of peripheral edema. Blood pressure also significantly improved today, 120/70 with a heart rate in the 70s, 94% on room air. White blood cell count 7.1, hemoglobin 15.3, platelet count 212. Sodium 136, potassium 2.9, BUN 34, creatinine 1.6. Patient continues to be on IV Lasix drip along with Zaroxolyn. 05/10/2020 Patient seen and examined this morning, diuresed a significant amount through the night again last night. His blood pressure this morning 140/80 with a heart rate in the 70s, 93% on room air. White blood cell count 7.1, hemoglobin 16.3, platelet count 250. Sodium 134, potassium 3.9, chloride 83 CO2 44 BUN 31 and creatinine 1.7. Repeat chest x-rays been requested for today. Results showed residual mild pulmonary vascular congestion. Aeration shows improvement from prior exam. Objective - Vital Signs Vital signs: Vital Signs Temp 98.0 F 05/10/20 09:10 Pulse 78 05/10/20 09:10 Resp 18 05/10/20 09:10 BP 141/88 05/10/20 09:10 Pulse Ox 93 L 05/10/20 09:10 Intake & Output 05/09/20 05/10/20 05/10/20 18:59 06:59 18:59 Intake Total 1072.667 327 Output Total 3400 4050 Balance -6970.333 -6223 Weight 106.6 kg Intake: IV 80 80 Furosemide 100 mg In 80 80 Sodium Chloride 0.9% 90 ml @ 10 MG/HR 10 mls/hr IV .Q10H [facility] Rx#: [id number] Intake, IV Titration 94.667 97 Amount Furosemide 100 mg In 94.667 97 Sodium Chloride 0.9% 90 ml @ 10 MG/HR 10 mls/hr IV .Q10H [facility] Rx#: [id number] Oral 898 150 Output: Urine 3400 4050 Other: Voiding Method Urinal Urinal # Voids 2 - Exam PHYSICAL EXAMINATION: GENERAL: 49-year-old gentleman in no acute distress at the time of my examination HEENT: Head is atraumatic, normocephalic. Pupils equal, round. Sclera anicteric. Conjunctiva are clear. Mucous membranes of the mouth are moist. Neck is supple. There is elevated jugular venous pressure. No carotid bruit is heard. HEART EXAMINATION: Heart S1, S2 normal. No murmur or gallop heard. CHEST EXAMINATION: Lungs reveal improvement in air entry to the bases bi laterally ABDOMEN: Soft, obese, nontender. Bowel sounds are heard. No organomegaly noted. EXTREMITIES: 2+ peripheral pulses with 1+ evidence of peripheral edema and no calf tenderness noted. NEUROLOGIC patient is awake, alert and oriented 3 . - Labs CBC & Chem 7: 05/10/20 06:19 05/10/20 06:19 Labs: Abnormal Lab Results - Last 24 Hours (Table) 05/09/20 05/10/20 05/10/20 Range/Units 14:00 06:19 06:19 Lymphocytes # 0.5 L (1.0-4.8) k/uL Sodium 134 L (137-145) mmol/L Potassium 3.4 L (3.5-5.1) mmol/L Chloride 83 L (98-107) mmol/L Carbon Dioxide 44 H* (22-30) mmol/L BUN 31 H (9-20) mg/dL Creatinine 1.79 H (0.66-1.25) mg/dL Assessment and Plan Plan: Assessment and plan #1 systolic congestive heart failure acute on chronic #2 nonischemic cardio myopathy with documented ejection fraction of less than 20% #3 evidence of apical thrombus #4 hypertensive urgency #5 noncompliance with medication, patient has not taken any medications for the past 3 weeks #6 history of EtOH abuse Plan From cardiology's perspective, we will discontinue IV Lasix drip from this evening, start the patient on oral diuretics from tomorrow.Speak with nephrology regarding Zaroxolyn dosing. Patient again has been reminded of the importance o f taking all of his medications on a regular basis. We will check lytes BUN and creatinine in the morning. DNP note has been reviewed, I agree with a documented findings and plan of care. Patient was seen and examined.
[2020-05-10 12:47] LABS: Protein, Total 5.6 g/dL (6.2-8.2)
--- NOTE | 2020-05-10 15:26 | PN ---
PROGRESS NOTE Patient is seen for followup for acute kidney injury, mainly cardiorenal syndrome. He is maintained on Lasix drip. Patient states he is feeling better. He is at 10 mg/hour and Zaroxolyn at 5 mg daily. Patient's weight is down significantly. However, I do not believe this is accurate. He has made about 4 L of urine in the last 24 hours and he is negative by 3.7 L for 24 hours. PHYSICAL EXAMINATION: On examination today, blood pressure was 141/88, heart rate 78 per minute. He is afebrile. EXAMINATION OF THE HEART: S1 and S2. EXAMINATION OF LUNGS: Bilateral breath sounds are heard. Decreased breath sounds at bases. ABDOMEN: Soft, non-tender, obese. Examination of lower extremities edema 3+ bilaterally. TAIL TRIMMER exam is grossly intact. LABS: Labs show sodium 134, potassium 3.9, chloride 83. CO2 is 44, BUN 31, serum creatinine 1.79. ASSESSMENT: 1. Acute kidney injury, cardiorenal, currently maintained on Lasix drip and Zaroxolyn. I will decrease the Lasix drip to 5 mg/hour. Patient has had good response in the last 24 hours. 2. Metabolic alkalosis secondary to diuresis. Will maintain patient on Diamox. 3. Congestive heart failure, acute on top of chronic, mainly systolic, currently slowly improving. 4. Hypokalemia secondary to diuresis, currently being replaced. 5. Cardiomyopathy, ejection fraction less than 20%, with severe pulmonary hypertension. 6. Left renal mass noted on ultrasound with no mass noted on CT. 7. Benign hypertension, currently controlled. 8. Possible underlying chronic kidney disease, stage 3, secondary to nephrosclerosis. Previous creatinine was 1.5 in 2017 and about 1.0 in 2018. PLAN: Decrease Lasix drip to 5 mg/hour. Add Diamox. Repeat labs in a.m. Continue to replace potassium. MMODL / IJN: [id number] /
[2020-05-11] MEDS: FUROSEMIDE 100 MG in SODIUM CHLORIDE 0.9% 90 ML IV SCH (06:30)
[2020-05-11] MEDS: PANTOPRAZOLE 40 MG TABLET PO SCH (06:30)
[2020-05-11] MEDS: NON FORMULARY DRUG (Ubidecarenone [Co Q-10] 100 MG) PO SCH (08:07)
[2020-05-11] MEDS: hydrALAZINE HCL 25 MG TAB PO SCH ×3 (08:13→20:43)
[2020-05-11] MEDS: APIXABAN 5 MG TAB PO SCH ×2 (08:14→20:43)
[2020-05-11] MEDS: LABETALOL 100 MG TAB PO SCH ×2 (08:14→20:43)
[2020-05-11] MEDS: ISOSORBIDE MONONITRATE ER 60 MG TAB.ER.24H PO SCH (08:14)
[2020-05-11] MEDS: METOLAZONE 5 MG TAB PO SCH (08:14)
[2020-05-11] MEDS: POTASSIUM CHLORIDE ER 20 MEQ TAB.ER PO SCH (08:14)
[2020-05-11] MEDS: SPIRONOLACTONE 25 MG TAB PO SCH (08:14)
[2020-05-11] MEDS ORDERED: FUROSEMIDE 40 MG TAB PO SCH (09:00)
[2020-05-11 09:19] LABS: Calcium 9.7 mg/dL (8.4-10.2); Potassium 3.8 mmol/L (3.5-5.1)
[2020-05-11] MEDS ORDERED: FUROSEMIDE 100 MG in SODIUM CHLORIDE 0.9% 90 ML IV SCH (09:30)
--- NOTE | 2020-05-11 11:52 | P.PN ---
Subjective Progress Note Date: 05/11/20 This is a 49-year-old gentleman with documented history of hypertension, nonischemic cardiomyopathy with documented ejection fraction of less than 20%, no history of diabetes or hyperlipidemia, he is a nonsmoker, he does have a history of significant alcohol use which was felt originally to be t he cause of his cardiomyopathy. According to the patient, he has not taken any of his medications for the past 3 weeks. He presents to the emergency room with symptoms of significant weight gain, bilateral lower extremity edema and shortness of breath. His chest x-ray on presentation here showed mild volume overload and early pulmonary edema. EKG shows a sinus tachycardia with nonspecific ST-T wave changes. An echocardiogram with Doppler study was performed here which revealed an LV function of less than 20%. There is evidence of thrombus in the apex. Small generalized pericardial effusion. I pressure on presentation here 203/142, heart rate 118, temperature 98.5, 97% on room air. Blood pressure this morning 172/116, heart rate in the 90s, 96% on room air. White blood cell count 5.9, hemoglobin 14.9, platelet count 213. Sodium 138, potassium 3.9, BUN 36, creatinine 1.9, yesterday's BUN was 37 with a creatinine of 2.0. BNP level 30,700. Troponin 0.69, 0.77, 0.68. Tucker virus not detected. The patient was initiated on IV push Lasix in the emergency room, we will discontinue the IV push Lasix and start the patient on a Lasix drip. Because of the known cardiomyopathy with documented ejection fraction of less than 20%, we will discontinue the Norvasc, patient was also on 2 beta blockers, we'll discontinue the metoprolol and continue with the labetalol for now. Incr ease dose of hydralazine increased dose of Imdur and attempt to optimize blood pressure control. Patient is not currently on an DARSHAN inhibitor because of abnormal renal function. Patient has also been seen in consultation by nephrology and initiated on Zaroxolyn. 05/09/2020 Patient seen and examined this morning, he diuresed over 5 L through the night last night and feels significantly better today. Continues to have quite a bit of peripheral edema. Blood pressure also significantly improved today, 120/70 with a heart rate in the 70s, 94% on room air. White blood cell count 7.1, hemoglobin 15.3, platelet count 212. Sodium 136, potassium 2.9, BUN 34, creatinine 1.6. Patient continues to be on IV Lasix drip along with Zaroxolyn. 05/10/2020 Patient seen and examined this morning, diuresed a significant amount through the night again last night. His blood pressure this morning 140/80 with a heart rate in the 70s, 93% on room air. White blood cell count 7.1, hemoglobin 16.3, platelet count 250. Sodium 134, potassium 3.9, chloride 83 CO2 44 BUN 31 and creatinine 1.7. Repeat chest x-rays been requested for today. Results showed residual mild pulmonary vascular congestion. Aeration shows improvement from prior exam. 05/11/2020 Patient was seen and examined this morning, continued to diurese well through the night last night. Weight is down 3 kg today. Blood pressure 105/60 with a heart rate in the 70s, 94% on room air. Sodium 133, potassium 3.8, chloride 79, CO2 44, BUN 33, creatinine 2.3 today. IV Lasix drip has been discontinued, Lasix is now 40 mg IV twice a day. We will hold off on the Zaroxolyn today. Check lytes BUN and creatinine in the morning. Objective - Vital Signs Vital signs: Vital Signs Temp 97.7 F 05/11/20 11:40 Pulse 71 05/11/20 11:40 Resp 16 05/11/20 11:40 BP 105/66 05/11/20 11:40 Pulse Ox 94 L 05/11/20 11:40 Intake & Output 05/10/20 05/11/20 05/11/20 18:59 06:59 18:59 Intake Total 980 100 240 Output Total 800 3500 Balance 180 -3400 240 Weight 103.8 kg Intake: IV 80 Furosemide 100 mg In 80 Sodium Chloride 0.9% 90 ml @ 5 MG/HR 5 mls/hr IV .Q20H JEEVAN Rx#:[id number] Intake, IV Titration 100 100 Amount Furosemide 100 mg In 100 100 Sodium Chloride 0.9% 90 ml @ 5 MG/HR 5 mls/hr IV .Q20H JEEVAN Rx#:[id number] Oral 800 240 Output: Urine 800 3500 Other: Voiding Method Urinal Urinal # Voids 5 - Exam PHYSICAL EXAMINATION: GENERAL: 49-year-old gentleman in no acute distress at the time of my examination HEENT: Head is atraumatic, normocephalic. Pupils equal, round. Sclera anicteric. Conjunctiva are clear. Mucous membranes of the mouth are moist. Neck is supple. There is elevated jugular venous pressure. No carotid bruit is heard. HEART EXAMINATION: Heart S1, S2 normal. No murmur or gallop heard. CHEST EXAMINATION: Lungs reveal improvement in air entry to the bases bilaterally ABDOMEN: Soft, obese, nontender. Bowel sounds are heard. No organomegaly noted. EXTREMITIES: 2+ peripheral pulses with 1+ evidence of peripheral edema and no calf tenderness noted. NEUROLOGIC patient is awake, alert and oriented 3 . - Labs CBC & Chem 7: 05/10/20 06:19 05/11/20 08:03 Labs: Abnormal Lab Results - Last 24 Hours (Table) 05/09/20 05/09/20 05/11/20 Range/Units 05:29 05:29 08:03 Sodium 133 L (137-145) mmol/L Chloride 79 L (98-107) mmol/L Carbon Dioxide 44 H* (22-30) mmol/L BUN 33 H (9-20) mg/dL Creatinine 2.34 H (0.66-1.25) mg/dL Glucose 107 H (74-99) mg/dL Total Protein (PEP) 5.6 L (6.2-8.2) g/dL Angiotensin Convert Enz 66 H (8-52) U/L Assessment and Plan Plan: Assessment and plan #1 systolic congestive heart failure acute on chronic #2 nonischemic cardio myopathy with documented ejection fraction of less than 20% #3 evidence of apical thrombus #4 hypertensive urgency #5 noncompliance with medication, patient has not taken any medications for the past 3 weeks #6 history of EtOH abuse Plan From cardiology's perspective, we will discontinue IV Lasix drip start the patient on IV push Lasix twice a day as per nephrology, hold the Zaroxolyn for today. Check lytes BUN and creatinine in the morning. DNP note has been reviewed, I agree with a documented findings and plan of care. Patient was seen and examined.
--- NOTE | 2020-05-11 13:12 | P.PN ---
Subjective Progress Note Date: 05/11/20 49-year-old morbidly obese male who started seen in our office recently with past medical history of severe cardiopathy most likely alcoholic-related last hospitalized in September 2017 had an echocardiogram with ejection fraction of less than 20 percentile. Patient used to drink heavily between 6-12 beers a day for many years. Patient was placed on multi-medication for his heart failure supposed to see his primary care and cardiology regular basis which patient has not seen anyone for the last 12 month has not in on any medication including diuretics or MARIO inhibitor for over 6 months. Resented with over 40 pounds weight gain if can't dyspnea and shortness of breath with anasarca edema and significant ascites patient was diagnosed with acute exacerbation of CHF on a chronic CHF with cardiomyopathy he was started on IV Lasix and will be hospitalized. 05/08: Patient feels better, with regards to shortness of breath, however significant edema still present, he seemed to have noticed some improvement., Patient denies any chest pain or palpitations or PND, however he does have minimal dyspnea and exertion. His echocardiogram shows resting tachycardia over 100, has moderate concentric LVH, severely impaired systolic function with EF of under 20%, LA dilated, mild aortic valve sclerosis without stenosis, right ventricular systolic pressure of 66, small generalized pericardial effusion n oted patient is seen by cardiology and pulmonary, and nephrology, patient has not yet optimized secondary to abnormal renal function, patient would need to be on MARIO inhibitor she, patient is now on Zaroxolyn, and IV Lasix drip at 10 mics per hour, patient is on labetalol 100 mg twice a day for blood pressure control, patient is off amlodipine and to significant edema. Patient is committed t o abstaining from alcohol permanently, urinalysis shows +1 proteinuria, albumin is low at 2.9, troponin is 0.68 3.770, current creatinine of 1.9, BUN of 36 abdominal ultrasound showing left lower pole renal mass, requiring CT investigation, no hydronephrosis, we'll going to request CT of the kidneys, no contrast at this time secondary to abnormal renal function patient might need urology, however there is no gross hematuria or microscopic hematuria noted. Blood pressure improved to systolic of 140-160, heart rate of 84 nonlabored breathing pulse ox 96% on room air standby O2 05/09: Patient is diuresing very well, has lost approximately 8 kg, wheeze negative fluid balance with IV Lasix, Zaroxolyn, we added spironolactone 25 mg daily, and the hypokalemia, potassium replaced, with maintenance 40 mg daily, CAT scan of the abdomen without contrast failed to reveal any renal mass that was initially seen, patient continues to improve with improvement of shortness of breath, no melena, which she sure, sleep is okay, no GI distress, and no focal neurologic deficits. 05/10: Patient was evaluated this morning, sitting up in bedside chair. States he is feeling a lot better this morning. States edema and shortness of breath have improved significantly. Weight this morning is 106.6 kg down a total of 26.3 kg from admission weight of 132.9kg. Remains on IV Lasix drip until this evening per cardiology's note and will change to P.O. tomorrow, will continue on Metolazone 5mg daily along with Spironolactone 25mg daily. Kidney function down slightly from yesterday, Cr 1.79, BUN 31, hypokalemia has improved, potassium is 3.9. Blood pressure has improved 141/88 with a heart rate of 78, afebrile 98.0, 93% on room air. Repeat chest x-ray showed mild residual pulmonary vascular congestion and improved aeration from prior exam. 05/11: Patient evaluated at beside today, sitting up in the chair with legs elevated. Instruction given for nurse for knee high PURA's, can use MARIO wrap instead. Continues to have weight loss down to 103.8kg today; total weight loss from admission; 29.1 kg. Lasix changed to 40 mg IV push every 12 hours, in addition to aldactone 25 mg po daily. Metolazone on hold. Kidney function today reveals BUN of 33, and creatinine of 2.34; up from yesterday. CO2 levels cont. at 44, patient started on IV diamox 250 mg every 12 hours from nephrology. Potassium today is stable at 3.8, replacement as needed. Current vital signs include; temperature of 97.7, HR 71, BP-105/66, 94% on room air. Patient started on eliquis this admission for an apical thrombus, hgb stable at 16.3, no signs of bleeding. Objective - Vital Signs Vital signs: Vital Signs Temp 97.7 F 05/11/20 11:40 Pulse 71 05/11/20 12:00 Resp 16 05/11/20 12:00 BP 105/66 05/11/20 11:40 Pulse Ox 94 L 05/11/20 11:40 Intake & Output 05/10/20 05/11/20 05/11/20 18:59 06:59 18:59 Intake Total 980 100 240 Output Total 800 3500 Balance 180 -3400 240 Weight 103.8 kg Intake: IV 80 Furosemide 100 mg In 80 Sodium Chloride 0.9% 90 ml @ 5 MG/HR 5 mls/hr IV .Q20H JEEVAN Rx#:[id number] Intake, IV Titration 100 100 Amount Furosemide 100 mg In 100 100 Sodium Chloride 0.9% 90 ml @ 5 MG/HR 5 mls/hr IV .Q20H JEEVAN Rx#:[id number] Oral 800 240 Output: Urine 800 3500 Other: Voiding Method Urinal Urinal # Voids 5 - Exam - Constitutional General appearance: Present: cooperative, obese - EENT Eyes: Present: anicteric sclerae, dentition normal, normal appearance - Neck Neck: Present: normal ROM - Respiratory Respiratory: bilateral: CTA, negative: diminished, dullness, rales - Cardiovascular Rhythm: regular Heart sounds: normal: S1, S2 Abnormal Heart Sounds: Present: systolic murmur - Peripheral edema leg Peripheral Edema: bilateral: 3+, Pitting - Integumentary Integumentary: Present: flushed, normal - Neurologic Neurologic: Present: CNII-XII intact - Musculoskeletal Musculoskeletal: Present: gait normal, strength equal bilaterally - Psychiatric Psychiatric: Present: A&O x's 3, appropriate affect, intact judgment & insight - Labs CBC & Chem 7: 05/12/20 05:44 05/12/20 05:44 Labs: Abnormal Lab Results - Last 24 Hours (Table) 05/11/20 Range/Units 08:03 Sodium 133 L (137-145) mmol/L Chloride 79 L (98-107) mmol/L Carbon Dioxide 44 H* (22-30) mmol/L BUN 33 H (9-20) mg/dL Creatinine 2.34 H (0.66-1.25) mg/dL Glucose 107 H (74-99) mg/dL Assessment and Plan Plan: Assessment and Plan Plan: 1 severe dyspnea and shortness of breath with acute respiratory failure anasarca: Combination of acute exacerbation of systolic congestive heart failure with chronic heart failure severe LV dysfunction of under 20%. Patient will need Mario inhibition once creatinine improves, IV push Lasix, hydralazine and Imdur, labetalol 100 mg twice a day, and Aldactone 25mg daily, metolozone on hold. Weight is down 29.1 kg from admission. 2 systolic dysfunction congestive heart failure with worsening symptoms, mostly from noncompliant to medication and probably from worsening alcoholic Cardiomyopathy, patient was supposed to be on furosemide daily along with hydralazine and isosorbide has not taking her medication in several months. Continue IV furosemide, nitro, hydralazine, Aldactone, Imdur, and Labetalol, watch retention and anasarca. Echocardiogram completed 3. Proteinuria with cardiorenal syndrome, alcoholic cardiomyopathy, cannot rule out nephrotic syndrome, patient's on IV diuretics, patient might need 24-hour urine protein evaluation, CATRACHITO mario level serum protein electrophoresis and immunofixation daily 4. Left renal mass noted on u/s, CAT scan without contrast of the kidney obtained and mass was ruled out. 5. Left atrial thrombus, patient was given IV heparin, and now transitioned to oral eliquis 5 mg twice a day, cardiology is on consult 3 alcoholic cardiopathy severe systolic dysfunction EF of under 20%: With much worsening symptoms, patient claimed he quit drinking a few months ago, echocardiogram updated, shows EF <20% 4 hypertension: Has not been taking his medication for over 6 month his blood pressure was moderately elevated, has been much better, will continue on IV Lasix, Hydralazine 75mg TID as well as PRN, Imdur 60mg daily, Labetalol 100mg BID, Aldactone 25mg daily. 5 acute kidney injury with chronic kidney disease: Creatinine up to 2.34 with GFR less than 30 continue to watch daily, trending up from yesterday. chemistry,nephrology on consult 6 mildly elevated troponin, possible of non-ST MD echocardiogram will consult cardiology if troponin is worsening patient might need to go to the research laboratory manager. 7 elevated lactic acid: Not a clear etiology most likely metabolic acidosis from worsening heart failure and hypoperfusion continue IV diuretics. Lactic acid normalized at 1.3. 8 GI prophylaxis: Patient will be on pantoprazole 40 mg daily. 9 DVT prophylaxis: On Eliquis 5mg BID 10. Mild abdominal ascites with extensive anasarca, Aldactone and IV Lasix, metalozone on hold. 10 most likely obstructive sleep apnea: With no study in the past patient need to have an arrange outpatient sleep study for further management. CODE STATUS: Full code. The above impression and plan of care have been discussed and directed by signing physician. Lucila Cole nurse practitioner acting as scribe for signing physician.
--- NOTE | 2020-05-11 13:28 | PN ---
PROGRESS NOTE The patient is seen for followup for acute kidney injury mainly cardiorenal. The patient is maintained on Lasix drip for severe volume overload CHF exacerbation. His Lasix drip was decreased to 5 mg an hour yesterday secondary to worsening metabolic alkalosis and elevated creatinine. The patient continues to have good urine output. 24 hours he has put out about 7.4 L. His creatinine has gone up to 2.4 today. Overall, patient states he is feeling better. On exam, blood pressure was 136/92, heart rate 86 per minute. He is afebrile. Examination of the heart S1, S2. Examination of the lungs: Decreased breath sounds at bases. Abdomen is soft, nontender. Examination of lower extremities shows edema 3+ bilaterally. Chronic skin changes noted. FACTORY HAND exam grossly intact. Labs show sodium 133, potassium 3.8, chloride 79, CO2 is 44, BUN 33, creatinine 2.34. ASSESSMENT: 1. Acute kidney injury, mainly cardiorenal, currently worse secondary to recent diuresis. Patient has had large outputs. I will discontinue the Lasix drip today. Patient will be maintained on IV push Lasix. 2. Congestive heart failure, acute on top of chronic systolic. 3. Cardiomyopathy, EF less than 20% with severe pulmonary hypertension. 4. Left renal mass noted on ultrasound with no mass noted on CT scan. 5. Benign hypertension currently controlled. 6. Possible underlying chronic kidney disease stage 3 secondary to nephrosclerosis and cardiorenal syndrome. Previous creatinine 1.5 in 2017, 1.0 in 2018. 7. Metabolic alkalosis secondary to diuresis, started on Diamox. Expect improvement with discontinuation of Lasix drip. PLAN: DC Lasix drip. Continue with the Diamox. Switch to IV push Lasix q.12 hours. Repeat labs in a.m. MMODL / IJN: [id number] /
[2020-05-11 13:49] LABS: Albumin 2.92 g/dL (3.80-4.90)
[2020-05-11] MEDS: FUROSEMIDE 10 MG/ML 4 ML VIAL IV SCH (20:42)
[2020-05-12] MEDS: PANTOPRAZOLE 40 MG TABLET PO SCH (05:30)
[2020-05-12 06:33] LABS: Basophils # (A) 0.1 k/uL (0-0.2); Basophils % (A) 1 %; Eosinophils # (A) 0.3 k/uL (0-0.7); Eosinophils % (A) 4 %; HCT 50.7 % (39.0-53.0); HGB 16.7 gm/dL (13.0-17.5); Hypochromasia Slight; Lymphocytes # (A) 0.7 k/uL (1.0-4.8); Lymphocytes % (A) 9 %; MCH 30.3 pg (25.0-35.0); MCV 91.8 fL (80.0-100.0); Mean Platelet Volume 8.1; Monocytes # (A) 0.8 k/uL (0-1.0); Monocytes % (A) 11 %; Neutrophils # (A) 5.4 k/uL (1.3-7.7); Neutrophils % (A) 73 %; Platelet Count 236 k/uL (150-450); RBC 5.53 m/uL (4.30-5.90); RDW 14.8 % (11.5-15.5); WBC 7.3 k/uL (3.8-10.6)
[2020-05-12 06:45] LABS: Albumin 3.5 g/dL (3.5-5.0); Calcium 9.4 mg/dL (8.4-10.2); Potassium 3.3 mmol/L (3.5-5.1); Total Bilirubin 0.8 mg/dL (0.2-1.3); Total Protein 6.6 g/dL (6.3-8.2)
[2020-05-12] MEDS ORDERED: Potassium Replacement Protocol 1 EACH MISC MISCELLANE PRN (07:55)
[2020-05-12 08:02] VITALS: PULSE 69; RESP 18
[2020-05-12] MEDS: APIXABAN 5 MG TAB PO SCH (08:15)
[2020-05-12] MEDS: POTASSIUM CHLORIDE ER 20 MEQ TAB.ER PO SCH ×3 (08:15→11:15)
[2020-05-12] MEDS: ISOSORBIDE MONONITRATE ER 60 MG TAB.ER.24H PO SCH (08:15)
[2020-05-12] MEDS: LABETALOL 100 MG TAB PO SCH (08:15)
[2020-05-12] MEDS: FUROSEMIDE 10 MG/ML 4 ML VIAL IV SCH (08:15)
[2020-05-12] MEDS: hydrALAZINE HCL 25 MG TAB PO SCH (08:15)
[2020-05-12] MEDS: NON FORMULARY DRUG (Ubidecarenone [Co Q-10] 100 MG) PO SCH (08:16)
[2020-05-12] MEDS: SPIRONOLACTONE 25 MG TAB PO SCH (08:16)
--- NOTE | 2020-05-12 10:44 | P.DS ---
Providers Date of admission: 05/07/20 13:24 Expected date of discharge: 05/12/20 Attending physician: Be Nava Consults: 05/07/20 13:24 Consult Physician Routine Consulting Provider: Gamaliel Gabriel Consult Reason/Comments: CHF Do you want consulting provider notified?: Yes 05/07/20 20:46 Consult Physician Routine Consulting Provider: Jose Cook Consult Reason/Comments: ASHLEY, cardio-renal syndrome? Do you want consulting provider notified?: Yes, Notify in am Primary care physician: [facility] Course: 49-year-old morbidly obese male who started seen in our office recently with past medical history of severe cardiopathy most likely alcoholic-related last hospitalized in September 2017 had an echocardiogram with ejection fraction of less than 20 percentile. Patient used to drink heavily between 6-12 beers a day for many years. Patient was placed on multi-medication for his heart failure supposed to see his primary care and cardiology regular basis which patient has not seen anyone for the last 12 month has not in on any medication including diuretics or DARSHAN inhibitor for over 6 months. Resented with over 40 pounds weight gain if can't dyspnea and shortness of breath with anasarca edema and significant ascites patient was diagnosed with acute exacerbation of CHF on a chronic CHF with cardiomyopathy he was started on IV Lasix and will be h ospitalized. 05/08: Patient feels better, with regards to shortness of breath, however significant edema still present, he seemed to have noticed some improvement., Patient denies any chest pain or palpitations or PND, however he does have minimal dyspnea and exertion. His echocardiogram shows resting tachycardia over 100, has moderate concentric LVH, severely impaired systolic function with EF of under 20%, LA dilated, mild aortic valve sclerosis without stenosis, right ventricular systolic pressure of 66, small generalized pericardial effusion noted patient is seen by cardiology and pulmonary, and nephrology, patient has not yet optimized secondary to abnormal renal function, patient would need to be on DARSHAN inhibitor she, patient is now on Zaroxolyn, and IV Lasix drip at 10 mics per hour, patient is on labetalol 100 mg twice a day for blood pressure control, patient is off amlodipine and to significant edema. Patient is committed to abstaining from alcohol permanently, urinalysis shows +1 proteinuria, albumin is low at 2.9, troponin is 0.68 3.770, current creatinine of 1.9, BUN of 36 abdominal ultrasound showing left lower pole renal mass, requiring CT investigation, no hydronephrosis, we'll going to request CT of the kidneys, no contrast at this time secondary to abnormal renal function patient might need urology, however there is no gross hematuria or microscopic hematuria noted. Blood pressure improved to systolic of 140-160, heart rate of 84 nonlabored breathing pulse ox 96% on room air standby O2 05/09: Patient is diuresing very well, has lost approximately 8 kg, wheeze negative fluid balance with IV Lasix, Zaroxolyn, we added spironolactone 25 mg daily, and the hypokalemia, potassium replaced, with maintenance 40 mg daily, CAT scan of the abdomen without contrast failed to reveal any renal mass that was initially seen, patient continues to improve with improvement of shortness of breath, no melena, which she sure, sleep is okay, no GI distress, and no focal neurologic deficits. 05/10: Patient was evaluated this morning, sitting up in bedside chair. States he is feeling a lot better this morning. States edema and shortness of breath have improved significantly. Weight this morning is 106.6 kg down a total of 26.3 kg from admission weight of 132.9kg. Remains on IV Lasix drip until this evening per cardiology's note and will change to P.O. tomorrow, will continue on Metolazone 5mg daily along with Spironolactone 25mg daily. Kidney function down slightly from yesterday, Cr 1.79, BUN 31, hypokalemia has improved, potassium is 3.9. Blood pressure has improved 141/88 with a heart rate of 78, afebrile 98.0, 93% on room air. Repeat chest x-ray showed mild residual pulmonary vascular congestion and improved aeration from prior exam. 05/11: Patient evaluated at beside today, sitting up in the chair with legs elevated. Instruction given for nurse for knee high PURA's, can use DARSHAN wrap instead. Continues to have weight loss down to 103.8kg today; total weight loss from admission; 29.1 kg. Lasix changed to 40 mg IV push every 12 hours, in addition to aldactone 25 mg po daily. Metolazone on hold. Kidney function today reveals BUN of 33, and creatinine of 2.34; up from yesterday. CO2 levels cont. at 44, patient started on IV diamox 250 mg every 12 hours from nephrology. Potassium today is stable at 3.8, replacement as needed. Current vital signs include; temperature of 97.7, HR 71, BP-105/66, 94% on room air. Patient started on eliquis this admission for an apical thrombus, hgb stable at 16.3, no signs of bleeding. 05/12: Patient sitting up in bedside chair, states he is feeling well and is ready for discharge home today. Weight continues to trend downwards, today's weight is 100.1kg, total weight loss 32.8kg. Still has some lower extremity edema, although overall has improved significantly, will continue with DARSHAN wraps to bilateral lower extremities. Potassium is down today at 3.3, will replace potassium before discharge. Carbon dioxide is better today at 37, will discontinue acetazolamide. Kidney function declined slightly Cr 2.21, BUN 38, GFR 34, expected from the diuretics. Will continue to monitor closely as outpa tient. Will follow up in the office, will need weekly CMP for the next several weeks while on PO Lasix to monitor kidney function and electrolytes closely. Had long discussion with patient regarding his alcohol use and strongly recommended to refrain from all alcohol from now on. Will need repeat echo in the next 6 months to reassess his dilated cardiomyopathy. Will also need to arrange for a sleep study as outpatient. Discharge diagnoses 1 severe dyspnea and shortness of breath with acute respiratory failure anasarca 2 systolic dysfunction congestive heart failure with worsening symptoms 3. Proteinuria with cardiorenal syndrome, alcoholic cardiomyopathy 4. Left renal mass noted on u/s, CAT scan without contrast of the kidney obtained and mass was ruled out. 5. Left atrial thrombus, on eliquis 5 mg twice a day 3 alcoholic cardiopathy severe systolic dysfunction EF of under 20% 4 hypertension 5 acute kidney injury with chronic kidney disease 6 mildly elevated troponin 7 elevated lactic acid 8. Mild abdominal ascites with extensive anasarca 9 most likely obstructive sleep apnea: With no study in the past patient need to have an arrange outpatient sleep study for further management. The above impression and plan of care have been discussed and directed by signing physician. Lucila Cole nurse practitioner acting as scribe for signing physician. Patient Condition at Discharge: Stable Plan - Discharge Summary Discharge Rx Participant: No New Discharge Prescriptions: New Spironolactone [Aldactone] 25 mg PO DAILY #30 tab hydrALAZINE HCL [Apresoline] 75 mg PO TID #90 tab Apixaban [Eliquis] 5 mg PO BID #60 tab Isosorbide Mononitrate ER [Imdur] 60 mg PO DAILY #30 tab.er.24h Potassium Chloride ER [K-Dur 20] 40 meq PO DAILY #30 tab.er.prt Furosemide [Lasix] 40 mg PO BID #60 tablet Nitroglycerin Sl Tabs [Nitrostat] 0.4 mg SUBLINGUAL Q5M PRN #25 tab PRN Reason: Chest Pain Pantoprazole [Protonix] 40 mg PO AC-BRKFST #30 tablet. Labetalol [Trandate] 100 mg PO BID #60 tab Continue Multivitamins, Thera [Multivitamin (formulary)] 1 tab PO DAILY Ubidecarenone [Co Q-10] 100 mg PO DAILY Discontinued hydrALAZINE HCL [Apresoline] 25 mg PO TID Furosemide [Lasix] 20 mg PO DAILY amLODIPine [Norvasc] 5 mg PO DAILY Discharge Medication List Multivitamins, Thera [Multivitamin (formulary)] 1 tab PO DAILY 10/24/17 [History ] Ubidecarenone [Co Q-10] 100 mg PO DAILY 05/07/20 [History] Apixaban [Eliquis] 5 mg PO BID #60 tab 05/12/20 [Rx] Furosemide [Lasix] 40 mg PO BID #60 tablet 05/12/20 [Rx] Isosorbide Mononitrate ER [Imdur] 60 mg PO DAILY #30 tab.er.24h 05/12/20 [Rx] Labetalol [Trandate] 100 mg PO BID #60 tab 05/12/20 [Rx] Nitroglycerin Sl Tabs [Nitrostat] 0.4 mg SUBLINGUAL Q5M PRN #25 tab 05/12/20 [Rx] Pantoprazole [Protonix] 40 mg PO AC-BRKFST #30 tablet. 05/12/20 [Rx] Potassium Chloride ER [K-Dur 20] 40 meq PO DAILY #30 tab.er.prt 05/12/20 [Rx] Spironolactone [Aldactone] 25 mg PO DAILY #30 tab 05/12/20 [Rx] hydrALAZINE HCL [Apresoline] 75 mg PO TID #90 tab 05/12/20 [Rx] Follow up Appointment(s)/Referral(s): Be Nava MD [Medical Doctor] - 1 Week Gamaliel Gabriel MD [STAFF PHYSICIAN] - 1 Week Activity/Diet/Wound Care/Special Instructions: Eliquis coverage: patient qualifies for $10 copay card and first month free. Without coupon, copay is $50/month. Discharge Disposition: HOME SELF-CARE
[2020-05-12 11:29] VITALS: BP 117/76; TEMP 97.2
--- NOTE | 2020-05-12 11:54 | P.PN ---
Subjective Progress Note Date: 05/12/20 This is a 49-year-old gentleman with documented history of hypertension, nonischemic cardiomyopathy with documented ejection fraction of less than 20%, no history of diabetes or hyperlipidemia, he is a nonsmoker, he does have a history of significant alcohol use which was felt originally to be t he cause of his cardiomyopathy. According to the patient, he has not taken any of his medications for the past 3 weeks. He presents to the emergency room with symptoms of significant weight gain, bilateral lower extremity edema and shortness of breath. His chest x-ray on presentation here showed mild volume overload and early pulmonary edema. EKG shows a sinus tachycardia with nonspecific ST-T wave changes. An echocardiogram with Doppler study was performed here which revealed an LV function of less than 20%. There is evidence of thrombus in the apex. Small generalized pericardial effusion. I pressure on presentation here 203/142, heart rate 118, temperature 98.5, 97% on room air. Blood pressure this morning 172/116, heart rate in the 90s, 96% on room air. White blood cell count 5.9, hemoglobin 14.9, platelet count 213. Sodium 138, potassium 3.9, BUN 36, creatinine 1.9, yesterday's BUN was 37 with a creatinine of 2.0. BNP level 30,700. Troponin 0.69, 0.77, 0.68. Tucker virus not detected. The patient was initiated on IV push Lasix in the emergency room, we will discontinue the IV push Lasix and start the patient on a Lasix drip. Because of the known cardiomyopathy with documented ejection fraction of less than 20%, we will discontinue the Norvasc, patient was also on 2 beta blockers, we'll discontinue the metoprolol and continue with the labetalol for now. Incr ease dose of hydralazine increased dose of Imdur and attempt to optimize blood pressure control. Patient is not currently on an DARSHAN inhibitor because of abnormal renal function. Patient has also been seen in consultation by nephrology and initiated on Zaroxolyn. 05/09/2020 Patient seen and examined this morning, he diuresed over 5 L through the night last night and feels significantly better today. Continues to have quite a bit of peripheral edema. Blood pressure also significantly improved today, 120/70 with a heart rate in the 70s, 94% on room air. White blood cell count 7.1, hemoglobin 15.3, platelet count 212. Sodium 136, potassium 2.9, BUN 34, creatinine 1.6. Patient continues to be on IV Lasix drip along with Zaroxolyn. 05/10/2020 Patient seen and examined this morning, diuresed a significant amount through the night again last night. His blood pressure this morning 140/80 with a heart rate in the 70s, 93% on room air. White blood cell count 7.1, hemoglobin 16.3, platelet count 250. Sodium 134, potassium 3.9, chloride 83 CO2 44 BUN 31 and creatinine 1.7. Repeat chest x-rays been requested for today. Results showed residual mild pulmonary vascular congestion. Aeration shows improvement from prior exam. 05/11/2020 Patient was seen and examined this morning, continued to diurese well through the night last night. Weight is down 3 kg today. Blood pressure 105/60 with a heart rate in the 70s, 94% on room air. Sodium 133, potassium 3.8, chloride 79, CO2 44, BUN 33, creatinine 2.3 today. IV Lasix drip has been discontinued, Lasix is now 40 mg IV twice a day. We will hold off on the Zaroxolyn today. Check lytes BUN and creatinine in the morning. 05/12/2020 Patient was seen and examined this morning, his weight is down 3 kg today. Blood pressure 117/76 with a heart rate of 68, 95% on room air. White blood cell count 7.3, hemoglobin 16.7, platelet count 236. Sodium 131, potassium 3.3, BUN 38, creatinine 2.2. Objective - Vital Signs Vital signs: Vital Signs Temp 97.2 F L 05/12/20 11:29 Pulse 69 05/12/20 11:29 Resp 18 05/12/20 11:29 BP 117/76 05/12/20 11:29 Pulse Ox 95 05/12/20 11:29 Intake & Output 05/11/20 05/12/20 05/12/20 18:59 06:59 18:59 Intake Total 480 120 Output Total 1200 Balance 480 -1200 120 Weight 100.1 kg Intake: Oral 480 120 Output: Urine 1200 Other: Voiding Method Urinal Urinal Urinal # Voids 2 3 1 - Exam PHYSICAL EXAMINATION: GENERAL: 49-year-old gentleman in no acute distress at the time of my examination HEENT: Head is atraumatic, normocephalic. Pupils equal, round. Sclera anicteric. Conjunctiva are clear. Mucous membranes of the mouth are moist. Neck is supple. There is elevated jugular venous pressure. No carotid bruit is heard. HEART EXAMINATION: Heart S1, S2 normal. No murmur or gallop heard. CHEST EXAMINATION: Lungs clear to auscultation ABDOMEN: Soft, obese, nontender. Bowel sounds are heard. No organomegaly noted. EXTREMITIES: 2+ peripheral pulses with trace evidence of peripheral edema and no calf tenderness noted. NEUROLOGIC patient is awake, alert and oriented 3 . - Labs CBC & Chem 7: 05/12/20 05:44 05/12/20 05:44 Labs: Abnormal Lab Results - Last 24 Hours (Table) 05/09/20 05/12/20 05/12/20 Range/Units 05:29 05:44 05:44 Lymphocytes # 0.7 L (1.0-4.8) k/uL Sodium 131 L (137-145) mmol/L Potassium 3.3 L (3.5-5.1) mmol/L Chloride 84 L (98-107) mmol/L Carbon Dioxide 37 H (22-30) mmol/L BUN 38 H (9-20) mg/dL Creatinine 2.21 H (0.66-1.25) mg/dL Albumin (PEP) 2.92 L (3.80-4.90) g/dL [id number] 0.47 H (0.10-0.40) g/dL Assessment and Plan Plan: Assessment and plan #1 systolic congestive heart failure acute on chronic #2 nonischemic cardio myopathy with documented ejection fraction of less than 20% #3 evidence of apical thrombus #4 hypertensive urgency #5 noncompliance with medication, patient has not taken any medications for the past 3 weeks #6 history of EtOH abuse Plan From cardiology's perspective, primary care doctor has initiated at discharge today. IV Lasix will be discontinued and patient will go home on 60 mg of oral Lasix twice a day. Lytes BUN and creatinine in one week. Follow-up appointment in the office post discharge. DNP note has been reviewed, I agree with a documented findings and plan of care. Patient was seen and examined.
--- NOTE | 2020-05-12 12:31 | PN ---
PROGRESS NOTE Patient is seen for followup for acute kidney injury associated with CHF and cardiorenal syndrome. The patient was maintained on Lasix drip. His volume status has improved. His creatinine, however, is higher at about 2.3-2.2 mg/dL. His baseline is around 1.5-1.7 previously. The patient states he is feeling better. He has lost significant weight. A 24 hour urine output documented at 4.3 L. On examination today, blood pressure is 117/76, heart rate 69 per minute. He is afebrile. Examination of the heart S1, S2. Examination of the lungs, bilateral breath sounds are heard. Abdomen is soft, nontender. Examination of lower extremities shows edema 2+ bilaterally. [employer] exam grossly intact. LABS: Show sodium 131, potassium 3.3, chloride 84, CO2 is 37, BUN 38, creatinine 2.2 mg/dL. Hemoglobin was 16.7. ASSESSMENT: 1. Acute kidney injury cardiorenal, renal function slightly better than yesterday. The patient's Lasix drip was discontinued yesterday. He can be switched over to oral Lasix and follow up as outpatient in about one week's time. 2. Chronic kidney disease secondary nephrosclerosis and cardiorenal syndrome. Lowest creatinine was 1.0. However, patient has had a creatinine 1.5-1.7. He is at stage III. 3. Metabolic alkalosis secondary to diuresis maintained on Diamox currently improving. 4. Cardiomyopathy, ejection fraction less than 20% with severe pulmonary hypertension. 5. Congestive heart failure, systolic acute on top of chronic. PLAN: Patient can be discharged. Follow up as outpatient in about one week's time. He can continue with oral Lasix 60 b.i.d. Monitor potassium. Replace potassium and repeat labs in 4-5 days post discharge. MMODL / IJN: [id number] /
[2020-05-12] MEDS ORDERED: FUROSEMIDE 20 MG TAB PO SCH (16:00)
== END 2020-05-12 15:11 | disposition home or self-care (01) | DRG 291 ==
LOC: EC 11:15 → 3SCARD 13:24
PROVIDERS: ADMIT Internal Medicine Geriatric Medicine; ATTEND Internal Medicine Geriatric Medicine
DX: I13.0 Hypertensive heart and chronic kidney disease with heart failure and stage 1 through stage 4 chronic kidney disease, or unspecified chronic kidney disease (principal); I50.23 Acute on chronic systolic (congestive) heart failure; J96.00 Acute respiratory failure, unspecified whether with hypoxia or hypercapnia; E87.4 Mixed disorder of acid-base balance; N17.9 Acute kidney failure, unspecified; R18.8 Other ascites; I31.3 Pericardial effusion (noninflammatory); E66.01 Morbid (severe) obesity due to excess calories; I27.20 Pulmonary hypertension, unspecified; I16.0 Hypertensive urgency; F10.20 Alcohol dependence, uncomplicated; I42.0 Dilated cardiomyopathy; G47.33 Obstructive sleep apnea (adult) (pediatric); I51.3 Intracardiac thrombosis, not elsewhere classified; R79.89 Other specified abnormal findings of blood chemistry; E87.6 Hypokalemia; Z20.828 Contact with and (suspected) exposure to other viral communicable diseases; I42.6 Alcoholic cardiomyopathy; N18.9 Chronic kidney disease, unspecified; T50.2X5A Adverse effect of carbonic-anhydrase inhibitors, benzothiadiazides and other diuretics, initial encounter; N28.89 Other specified disorders of kidney and ureter; Z79.899 Other long term (current) drug therapy; Z88.8 Allergy status to other drugs, medicaments and biological substances; Z87.891 Personal history of nicotine dependence; Z91.14 Patient's other noncompliance with medication regimen; Z68.34 Body mass index [BMI] 34.0-34.9, adult; Z79.01 Long term (current) use of anticoagulants; Z82.49 Family history of ischemic heart disease and other diseases of the circulatory system
CPT/HCPCS: 36415; 71046; 74176; 76770; 80048; 80053; 81001; 82088; 82164; 82570; 83605; 83735; 83880; 84132; 84156; 84165; 84244; 84484; 85025; 85610; 85730; 86038; 86334; 93005; 93306; 96365; 96366; 96368; 96375; 96376; 99291

== ENCOUNTER 2022-03-14 09:51 | Inpatient (IN) | payer BC ==
--- NOTE | 2022-03-14 10:37 | ED ---
General Adult HPI - General Chief complaint: Recheck/Abnormal Lab/Rx Stated complaint: fluid retention Time Seen by Provider: 03/14/22 10:00 Source: patient Mode of arrival: ambulatory Limitations: no limitations - History of Present Illness Initial comments: This 51-year-old male past medical history of hypertension and congestive heart failure presents emergency department stating "I've had increased fluid retention for the last 1 week." Patient states he does take Lasix 25 mg a day for his CHF and states he does take hydralazine 25 mg 3 times a day for his blood pressure. He states he was placed on another blood pressure medication but is unsure what it is and states he has not been taking it for the last 5 months as he has not followed up with his primary care provider. Patient states over the last week he has noticed increasing swelling in his bilateral lower extremities. He denies any shortness of breath at this time but states when he gets up and begins to walk around he does experience some shortness of breath. Patient states he does not have pain in his legs with states he feel tight. He states he was here a few years ago for a CHF exacerbation where he experienced similar symptoms. Patient denies any chest pain, shortness of breath, abdominal pain, nausea, vomiting, change in bowel or bladder, change in vision, light headedness, dizziness, cough, headache, change in appetite, fever, rash. - Related Data Home Medications Medication Instructions Recorded Confirmed Furosemide [Lasix] 40 mg PO DAILY 03/14/22 03/14/22 [place]-3 Fatty Acids/Fish Oil [Fish 1 cap PO DAILY 03/14/22 03/14/22 Oil 1,000 mg Softgel] hydrALAZINE HCL [Apresoline] 100 mg PO TID 03/14/22 03/14/22 Allergies Allergy/AdvReac Type Severity Reaction Status Date / Time warfarin [From Coumadin] Allergy Swelling Verified 03/14/22 10:59 Review of Systems ROS Statement: Those systems with pertinent positive or pertinent negative responses have been documented in the HPI. ROS Other: All systems not noted in ROS Statement are negative. Past Medical History Past Medical History: Heart Failure, Hypertension History of Any Multi-Drug Resistant Organisms: None Reported Past Surgical History: Orthopedic Surgery Additional Past Surgical History / Comment(s): toe and arm surgery Past Anesthesia/Blood Transfusion Reactions: No Reported Reaction Past Psychological History: No Psychological Hx Reported Smoking Status: Never smoker Past Alcohol Use History: Occasional Past Drug Use History: None Reported - Past Family History Mother History Unknown: Yes Father History Unknown: Yes General Exam Limitations: no limitations General appearance: alert, in no apparent distress Head exam: Present: atraumatic, normocephalic, normal inspection Eye exam: Present: normal appearance (bilateral pterygium- patient states they have been there for years), PERRL, EOMI. Absent: scleral icterus, conjunctival injection, periorbital swelling Pupils: Present: normal accommodation ENT exam: Present: normal exam, mucous membranes moist Neck exam: Present: normal inspection, full ROM. Absent: tenderness, meningismus, lymphadenopathy Respiratory exam: Present: normal lung sounds bilaterally. Absent: respiratory distress, wheezes, rales, rhonchi, stridor Cardiovascular Exam: Present: normal rhythm, tachycardia (102), normal heart sounds. Absent: systolic murmur, diastolic murmur, rubs, gallop, clicks GI/Abdominal exam: Present: soft, normal bowel sounds. Absent: distended, tenderness, guarding, rebound, rigid Extremities exam: Present: full ROM, normal capillary refill. Absent: normal i nspection (2+ pitting edema bilateral lower extremities on shins, ankles and feet), tenderness, pedal edema, joint swelling, calf tenderness Back exam: Present: normal inspection, full ROM. Absent: CVA tenderness (R), CVA tenderness (L), paraspinal tenderness, vertebral tenderness Neurological exam: Present: alert, oriented X3, CN II-XII intact, normal gait Psychiatric exam: Present: normal affect, normal mood Skin exam: Present: warm, dry, intact, normal color. Absent: rash Course Vital Signs 03/14/22 03/14/22 03/14/22 09:55 13:00 14:35 Temperature 97.7 F Pulse Rate 113 H 90 86 Respiratory 22 16 18 Rate Blood Pressure 222/129 182/123 162/119 O2 Sat by Pulse 95 99 96 Oximetry EKG Findings - EKG Comments: EKG Findings:: EKG impression: Ventricular rate 101 bpm. VA interval 203. QRS duration 110. QT/QTc 351/409. Interpreted by my attending, Medical Decision Making - Medical Decision Making This 61-year-old male with past medical history of hypertension and congestive heart failure presents emergency department with acute congestive heart failure exacerbation and hypertensive urgency. Patient's labs with troponin 0.084, albumin 3.2, creatinine 1.38, urine with 3+ protein. Chest x-ray impression: Cardiomegaly with mild to borderline monitor interstitial and mild alveolar edema neighboring CHF exacerbation or fluid overload state. Patient admitted to with cardiology consulted. Aspirin, sublingual nitro and Lasix given. Scheduled Lasix every 12 hours. Serial troponins placed. Patient agreed to be admitted for further workup, evaluation and treatment. Discussed case in detail my attending, who also saw and evaluated patient. - Lab Data Result diagrams: 03/14/22 10:29 03/14/22 10:52 Lab Results 03/14/22 03/14/22 03/14/22 Range/Units 10:29 10:29 10:29 WBC 7.1 (3.8-10.6) k/uL RBC 4.82 (4.30-5.90) m/uL Hgb 13.9 (13.0-17.5) gm/dL Hct 45.4 (39.0-53.0) % MCV 94.3 (80.0-100.0) fL MCH 28.8 (25.0-35.0) pg MCHC 30.6 L (31.0-37.0) g/dL RDW 14.5 (11.5-15.5) % Plt Count 317 (150-450) k/uL MPV 8.4 Neutrophils % 81 % Lymphocytes % 9 % Monocytes % 5 % Eosinophils % 3 % Basophils % 1 % Neutrophils # 5.7 (1.3-7.7) k/uL Lymphocytes # 0.6 L (1.0-4.8) k/uL Monocytes # 0.3 (0-1.0) k/uL Eosinophils # 0.2 (0-0.7) k/uL Basophils # 0.1 (0-0.2) k/uL Hypochromasia Slight PT 11.3 (9.0-12.0) sec INR 1.1 (<1.2) APTT 24.1 (22.0-30.0) sec Sodium (137-145) mmol/L Potassium (3.5-5.1) mmol/L Chloride (98-107) mmol/L Carbon Dioxide (22-30) mmol/L Anion Gap mmol/L BUN (9-20) mg/dL Creatinine (0.66-1.25) mg/dL Est GFR (CKD-EPI)AfAm (>60 ml/min/1.73 sqM) Est GFR (CKD-EPI)NonAf (>60 ml/min/1.73 sqM) Glucose (74-99) mg/dL Calcium (8.4-10.2) mg/dL Magnesium (1.6-2.3) mg/dL Total Bilirubin (0.2-1.3) mg/dL AST (17-59) U/L ALT (4-49) U/L Alkaline Phosphatase (38-126) U/L Troponin I (0.000-0.034) ng/mL NT-Pro-B Natriuret Pep 7940 pg/mL Total Protein (6.3-8.2) g/dL Albumin (3.5-5.0) g/dL Lipase (23-300) U/L 03/14/22 03/14/22 Range/Units 10:52 10:52 WBC (3.8-10.6) k/uL RBC (4.30-5.90) m/uL Hgb (13.0-17.5) gm/dL Hct (39.0-53.0) % MCV (80.0-100.0) fL MCH (25.0-35.0) pg MCHC (31.0-37.0) g/dL RDW (11.5-15.5) % Plt Count (150-450) k/uL MPV Neutrophils % % Lymphocytes % % Monocytes % % Eosinophils % % Basophils % % Neutrophils # (1.3-7.7) k/uL Lymphocytes # (1.0-4.8) k/uL Monocytes # (0-1.0) k/uL Eosinophils # (0-0.7) k/uL Basophils # (0-0.2) k/uL Hypochromasia PT (9.0-12.0) sec INR (<1.2) APTT (22.0-30.0) sec Sodium 137 (137-145) mmol/L Potassium 4.4 (3.5-5.1) mmol/L Chloride 106 (98-107) mmol/L Carbon Dioxide 27 (22-30) mmol/L Anion Gap 4 mmol/L BUN 17 (9-20) mg/dL Creatinine 1.38 H (0.66-1.25) mg/dL Est GFR (CKD-EPI)AfAm 68 (>60 ml/min/1.73 sqM) Est GFR (CKD-EPI)NonAf 59 (>60 ml/min/1.73 sqM) Glucose 108 H (74-99) mg/dL Calcium 8.4 (8.4-10.2) mg/dL Magnesium 2.2 (1.6-2.3) mg/dL Total Bilirubin 0.6 (0.2-1.3) mg/dL AST 24 (17-59) U/L ALT 18 (4-49) U/L Alkaline Phosphatase 62 (38-126) U/L Troponin I 0.084 H* (0.000-0.034) ng/mL NT-Pro-B Natriuret Pep pg/mL Total Protein 6.6 (6.3-8.2) g/dL Albumin 3.2 L (3.5-5.0) g/dL Lipase 159 (23-300) U/L Disposition Clinical Impression: Acute exacerbation of CHF (congestive heart failure), Elevated troponin, Cardiomegaly, Hypertensive urgency Disposition: ADMITTED IP TO THIS HOSP Condition: Serious
--- NOTE | 2022-03-14 10:47 | XR ---
EXAMINATION TYPE: XR chest 2V DATE OF EXAM: 03/14/2022 COMPARISON: Chest x-ray May 10, 2020 HISTORY: History of CHF with fluid retention, shortness of breath TECHNIQUE: Frontal and lateral views of the chest are obtained. FINDINGS: Is persistent cardiomegaly. Increased alveolar and interstitial markings bilaterally. No pleural effusion or pneumothorax is seen. The osseous structures are intact. IMPRESSION: Cardiomegaly with mild to borderline moderate interstitial and mild alveolar edema favor ing CHF exacerbation or fluid overload state.
[2022-03-14 10:51] LABS: Basophils # (A) 0.1 k/uL (0-0.2); Basophils % (A) 1 %; Eosinophils # (A) 0.2 k/uL (0-0.7); Eosinophils % (A) 3 %; HCT 45.4 % (39.0-53.0); HGB 13.9 gm/dL (13.0-17.5); Hypochromasia Slight; Lymphocytes # (A) 0.6 k/uL (1.0-4.8); Lymphocytes % (A) 9 %; MCH 28.8 pg (25.0-35.0); MCHC 30.6 g/dL (31.0-37.0); MCV 94.3 fL (80.0-100.0); Mean Platelet Volume 8.4; Monocytes # (A) 0.3 k/uL (0-1.0); Monocytes % (A) 5 %; Neutrophils # (A) 5.7 k/uL (1.3-7.7); Neutrophils % (A) 81 %; Platelet Count 317 k/uL (150-450); RBC 4.82 m/uL (4.30-5.90); RDW 14.5 % (11.5-15.5); WBC 7.1 k/uL (3.8-10.6)
[2022-03-14 11:06] LABS: INR 1.1 (<1.2); Partial Thromboplastin Time 24.1 sec (22.0-30.0); Prothrombin Time 11.3 sec (9.0-12.0)
[2022-03-14 11:14] LABS: Albumin 3.2 g/dL (3.5-5.0); Calcium 8.4 mg/dL (8.4-10.2); Magnesium 2.2 mg/dL (1.6-2.3); Potassium 4.4 mmol/L (3.5-5.1); Total Bilirubin 0.6 mg/dL (0.2-1.3); Total Protein 6.6 g/dL (6.3-8.2)
[2022-03-14] MEDS ORDERED: FUROSEMIDE 10 MG/ML 4 ML VIAL IV STA (11:28)
[2022-03-14] MEDS ORDERED: NITROGLYCERIN SL TABS 0.4 MG TAB SUBLINGUAL STA (11:28)
[2022-03-14] MEDS ORDERED: ACETAMINOPHEN TAB 325 MG TAB PO PRN (11:55)
[2022-03-14] MEDS ORDERED: ASPIRIN 325 MG TAB PO STA (11:55)
[2022-03-14] MEDS ORDERED: NALOXONE 0.4 MG/ML 1 ML VIAL IV PRN (11:55)
[2022-03-14 12:23] LABS: Appearance,Urine Clear (Clear); Bilirubin,Urine Negative (Negative); Blood,Urine Negative (Negative); Color,Urine Yellow; Glucose,Urine (UA) Negative (Negative); Hyaline Casts,Urine 6 /lpf (0-2); Ketones,Urine Negative (Negative); Leukocyte Esterase,Urine Negative (Negative); Mucus,Urine Rare /hpf; Nitrite,Urine Negative (Negative); Protein,Urine 3+ (Negative); RBC,Urine 1 /hpf (0-5); Specific Gravity,Urine 1.017 (1.001-1.035); Urobilinogen,Urine <2.0 mg/dL (<2.0); WBC,Urine 2 /hpf (0-5)
[2022-03-14] MEDS ORDERED: hydrALAZINE HCL 25 MG TAB PO SCH (13:30)
--- NOTE | 2022-03-14 13:37 | P.HPIM ---
History of Present Illness H&P Date: 03/14/22 Chief Complaint: Edema, difficulty breathing HISTORY OF PRESENT ILLNESS This is a 51-year-old male patient of Dr. Nava and Dr. Valera with past [facility] history of hypertension, nonischemic cardiomyopathy with EF less than 20%, history of left atrial thrombus was previously on eliquis, chronic kidney disease stage III, history of alcohol abuse, possible obstructive sleep apnea not previously worked up. Patient has been noncompliant and has not followed up with cardiology and more than 1-1/2 years and greater than [address] Nava. Patient was previously on along with the medications including Aldactone, hydralazine, eliquis, Imdur Lasix and potassium, labetalol and Protonix. He states the only medications he is still taking his Lasix and hydralazine. Patient complains of edema in his abdomen, lower extremities for 1-1/2 weeks. He states he has been taking Lasix he thinks it's 20 mg daily and has been urinating well. He also complains of difficulty breathing with ambulation. No lightheadedness or dizziness, no palpitations, no chest pain. Patient's father is at bedside. Patient was found to be afebrile, heart rate 113, blood pressure 222/129, pulse ox 95% on room air. EKG sinus tachycardia CBC was unremarkable. INR 1.1. Electrolytes normal. BUN 17 and creatinine 1.38. Blood sugar 108. Magnesium 2.2. Liver function tests were normal. ProBNP 7940. Troponin 0.084. Albumin 3.2. Urinalysis 3+ protein. Chest x-ray reveals cardiomegaly with mild to borderline moderate interstitial and mild alveolar edema favoring CHF exacerbation or fluid overload state. Patient was started on IV Lasix [facility]. REVIEW OF SYSTEMS Constitutional: No fever, no chills, no night sweats. No weight change. No weakness, fatigue or lethargy. No daytime sleepiness. EENT: No headache. No blurred vision or double vision, no loss of vision. No loss of Hearing, no ringing in the ears, no dizziness. No nasal drainage or congestion. No epistaxis. No sore throat. Lungs: Reports shortness of breath, cough, no sputum production. No wheezing. Reports dyspnea with exertion. Cardiovascular: No chest pain, reports lower extremity edema. No palpitations. No paroxysmal nocturnal dyspnea. Reports reports abdominal edema. orthopnea. No lightheadedness or dizziness. No syncopal episodes. Abdominal: No abdominal pain. No nausea, vomiting. No diarrhea. No constipation. No bloody or tarry stools. No loss of appetite. Genitourinary: No dysuria, increased frequency, urgency. No urinary retention. Musculoskeletal: No myalgias. No muscle weakness, no gait dysfunction, no frequent falls. No back pain. No neck pain. Integumentary: No wounds, no lesions. No rash or pruritus. No unusual bruising. No change in hair or nails. Neurologic: No aphasia. No facial droop. No change in mentation. No head injury. No headache. No paralysis. No paresthesia. Psychiatric: No depression. No anxiety. No mood swings. Endocrine: No abnormal blood sugars. No weight change. SOCIAL HISTORY Patient was a smoker of 4-5 cigarettes per day and quit 15 years ago. Patient has history of alcohol abuse. He was drinking 6-7 beers daily for many years currently at one to 2 beers per day and has been drinking for greater than 25 years. He lives alone. He does factory work. FAMILY HISTORY Patient is adopted and does not know any of his biological family history. PHYSICAL EXAMINATION Gen: This is a morbidly obese 51-year-old male. He is resting on ER stretcher and appears to be comfortable and in no acute distress. Father is at bedside. HEENT: Head is atraumatic, normocephalic. Pupils equal, round. Sclerae is anicteric. NECK: Supple. No JVD. No lymphadenopathy. No thyromegaly. LUNGS: Diminished breath sounds bilaterally. No wheezes or rhonchi. No intercostal retractions. No accessory muscle usage HEART: Regular rate and rhythm. Systolic murmur. ABDOMEN: Soft. Bowel sounds are present. No masses. No tenderness. Generalized anasarca lower torso, hips. EXTREMITIES: 2+ pedal edema. No calf tenderness. Small wounds to the left p retibial area with serous drainage. NEUROLOGICAL: Patient is awake, alert and oriented x3. Cranial nerves 2 through 12 are grossly intact. ASSESSMENT AND PLAN 1. Acute on chronic systolic heart failure. Start patient on Lasix 40 mg IV every 8 hours, Aldactone 25 mg daily, monitor I&O, daily weights, electrolytes and renal function, cardiology consult 2. Nonischemic cardiomyopathy most likely alcoholic cardiomyopathy with previous EF of 20%. 3. Hypertensive urgency. Continue Lasix, add hydralazine 25 mg twice daily scheduled, Aldactone, monitor blood pressure closely. 4. Elevated troponins. Repeat troponins ordered, echocardiogram, cardiology consult. 5. History of left atrial thrombus was previously on eliquis. 6. Early cellulitis to the left lower extremity. Silvadene wrap to the left lower extremity, Mario wrap as well to the right lower extremity. 7. Chronic kidney disease stage III. Avoid nephrotoxic agents 8. Alcohol abuse. 9. Possible obstructive sleep apnea. Patient would benefit from outpatient sleep study. 10. GI prophylaxis. Protonix. 11. DVT prophylaxis. Lovenox. Patient will be admitted to the hospital for a minimum of 2 night stay. DISCHARGE PLAN Return home. Impression and plan of care have been directed as dictated by the signing physician. Sun Sin nurse practitioner acting as scribe for signing linda oviedo. Past Medical History Past Medical History: Heart Failure, Hypertension History of Any Multi-Drug Resistant Organisms: None Reported Past Surgical History: Orthopedic Surgery Additional Past Surgical History / Comment(s): toe and arm surgery Past Anesthesia/Blood Transfusion Reactions: No Reported Reaction Past Psychological History: No Psychological Hx Reported Smoking Status: Never smoker Past Alcohol Use History: Occasional Past Drug Use History: None Reported - Past Family History Mother History Unknown: Yes Father History Unknown: Yes Medications and Allergies Home Medications Medication Instructions Recorded Confirmed Type Furosemide [Lasix] 40 mg PO DAILY 03/14/22 03/14/22 History [place]-3 Fatty Acids/Fish Oil [Fish 1 cap PO DAILY 03/14/22 03/14/22 History Oil 1,000 mg Softgel] hydrALAZINE HCL [Apresoline] 100 mg PO TID 03/14/22 03/14/22 History Allergies Allergy/AdvReac Type Severity Reaction Status Date / Time warfarin [From Coumadin] Allergy Swelling Verified 03/14/22 10:59 Physical Exam Vitals: Vital Signs Temp Pulse Resp BP Pulse Ox 03/14/22 09:55 97.7 F 113 H 22 222/129 95 Intake and Output 03/13/22 03/14/22 03/14/22 22:59 06:59 14:59 Other: Weight 95.254 kg Results CBC & Chem 7: 03/16/22 07:41 03/16/22 07:41 Labs: Abnormal Lab Results - Last 24 Hours (Table) 03/14/22 03/14/22 03/14/22 Range/Units 10:29 10:52 10:52 MCHC 30.6 L (31.0-37.0) g/dL Lymphocytes # 0.6 L (1.0-4.8) k/uL Creatinine 1.38 H (0.66-1.25) mg/dL Glucose 108 H (74-99) mg/dL Troponin I 0.084 H* (0.000-0.034) ng/mL Albumin 3.2 L (3.5-5.0) g/dL Urine Protein (Negative) Hyaline Casts (0-2) /lpf Urine Mucus (None) /hpf 03/14/22 Range/Units 12:04 MCHC (31.0-37.0) g/dL Lymphocytes # (1.0-4.8) k/uL Creatinine (0.66-1.25) mg/dL Glucose (74-99) mg/dL Troponin I (0.000-0.034) ng/mL Albumin (3.5-5.0) g/dL Urine Protein 3+ H (Negative) Hyaline Casts 6 H (0-2) /lpf Urine Mucus Rare H (None) /hpf
[2022-03-14] MEDS: SPIRONOLACTONE 25 MG TAB PO SCH (14:35)
[2022-03-14] MEDS: lisinopriL 20 MG TAB PO SCH (17:47)
[2022-03-14] MEDS: hydrALAZINE HCL 50 MG TAB PO SCH (19:03)
[2022-03-14] MEDS: FUROSEMIDE 10 MG/ML 4 ML VIAL IV SCH (19:03)
--- NOTE | 2022-03-14 19:30 | CA ---
Transthoracic Echo Report Name: Rolando Cruz Age: 51 Gender: M : 1970 Exam Date: 03/14/2022 14:18 Exam Location: [place] Echo Ht (in): 68 Wt (lb): 210 Ordering Physician: Sun Sin Attending/Referring Phys: General Ledger Bookkeeper Liset Shields RDCS Procedure CPT: Indications: LVF Cardiac Hx: Technical Quality: Technically difficult study Contrast 1: Lumason Total Dose (mL): 4 Contrast 2: Total Dose (mL): MEASUREMENTS (Male / Female) Normal Values 2D ECHO LV Diastolic Diameter PLAX 5.9 cm 4.2 - 5.9 / 3.9 - 5.3 cm LV Systolic Diameter PLAX 5.4 cm IVS Diastolic Thickness 1.5 cm 0.6 - 1.0 / 0.6 - 0.9 cm LVPW Diastolic Thickness 1.9 cm 0.6 - 1.0 / 0.6 - 0.9 cm LV Relative Wall Thickness 0.6 RV Internal Dim ED PLAX 3.3 cm LV Diastolic Volume MOD BP 173.7 cm??? 67 - 155 / 56 - 104 cm??? LV Systolic Volume MOD BP 115.2 cm??? 22 - 58 / 19 - 49 cm??? LV Ejection Fraction MOD BP 33.7 % >= 55 % LV Diastolic Volume MOD 4C 149.7 cm??? LV Systolic Volume MOD 4C 102.1 cm??? LV Ejection Fraction MOD 4C 31.8 % LV Diastolic Length 4C 9.0 cm LV Systolic Length 4C 7.8 cm LV Diastolic Volume MOD 2C 189.7 cm??? LV Systolic Volume MOD 2C 121.5 cm??? LV Ejection Fraction MOD 2C 35.9 % LV Diastolic Length 2C 9.6 cm LV Systolic Length 2C 8.5 cm LA Volume 116.4 cm??? 18 - 58 / 22 - 52 cm??? M-MODE Aortic Root Diameter MM 3.3 cm LA Systolic Diameter MM 5.2 cm LA Ao Ratio MM 1.6 AV Cusp Separation MM 2.1 cm DOPPLER AV Peak Velocity 129.3 cm/s AV Peak Gradient 6.7 mmHg LVOT Peak Velocity 84.9 cm/s LVOT Peak Gradient 2.9 mmHg TR Peak Velocity 290.4 cm/s TR Peak Gradient 33.7 mmHg Right Ventricular Systolic Press 35.4 mmHg FINDINGS Left Ventricle Moderately increased left ventricular wall thickness. Global left ventricular hypokinesis. Left ventricular ejection fraction is estimated at 20-25 %. Right Ventricle Normal right ventricular size and function. Severe pulmonary hypertension. Right Atrium Moderate right atrial dilatation. Left Atrium Severe left atrial dilatation. No evidence for an atrial septal defect. Mitral Valve Mild mitral regurgitation. Aortic Valve No aortic valve stenosis or regurgitation. Tricuspid Valve [id number] tricuspid regurgitation. Pulmonic Valve Trace pulmonic regurgitation. Pericardium No pericardial effusion. Aorta Aortic root and proximal ascending aorta not well visualized. CONCLUSIONS Dilated left ventricle with severe LV dysfunction, EF 20-25% Severe left atrial enlargement 3+ tricuspid regurgitation Previewed by: Dr. Lewis Valera MD (Electronically Signed) Final Date: 14 Mar 2022 19:29
[2022-03-14] MEDS ORDERED: FUROSEMIDE 10 MG/ML 4 ML VIAL IV SCH (21:00)
[2022-03-15] MEDS: FUROSEMIDE 10 MG/ML 4 ML VIAL IV SCH ×3 (05:34→22:25)
[2022-03-15] MEDS: PANTOPRAZOLE 40 MG TABLET PO SCH (05:34)
[2022-03-15] MEDS ORDERED: ATORVASTATIN 80 MG TAB PO STA (07:46)
[2022-03-15] MEDS ORDERED: ALPRAZolam 0.5 MG TAB PO PRN (07:46)
[2022-03-15] MEDS ORDERED: ALPRAZolam 0.25 MG TAB PO PRN (07:46)
[2022-03-15] MEDS: hydrALAZINE HCL 50 MG TAB PO SCH ×3 (08:34→22:25)
[2022-03-15] MEDS: ASPIRIN 81 MG PO SCH (08:34)
[2022-03-15] MEDS: ENOXAPARIN 40 MG/0.4 ML SYRINGE SQ SCH (08:34)
[2022-03-15] MEDS: SPIRONOLACTONE 25 MG TAB PO SCH (08:34)
[2022-03-15] MEDS: lisinopriL 20 MG TAB PO SCH (08:34)
[2022-03-15] MEDS: carvediloL 6.25 MG TAB PO SCH ×2 (08:40→16:34)
[2022-03-15 08:57] LABS: HCT 42.7 % (39.0-53.0); HGB 13.2 gm/dL (13.0-17.5); Hypochromasia Moderate; MCH 29.4 pg (25.0-35.0); MCHC 30.9 g/dL (31.0-37.0); Mean Platelet Volume 7.9; Platelet Count 283 k/uL (150-450); WBC 5.7 k/uL (3.8-10.6)
[2022-03-15 09:34] LABS: Albumin 3.2 g/dL (3.5-5.0); Calcium 8.6 mg/dL (8.4-10.2); Potassium 4.1 mmol/L (3.5-5.1); Total Bilirubin 0.9 mg/dL (0.2-1.3); Total Protein 6.8 g/dL (6.3-8.2)
--- NOTE | 2022-03-15 09:35 | P.PN ---
Subjective Progress Note Date: 03/15/22 HISTORY OF PRESENT ILLNESS This is a 51-year-old male patient of Dr. Nava and Dr. Valera with past medical history of hypertension, nonischemic cardiomyopathy with EF less than 20 %, history of left atrial thrombus was previously on eliquis, chronic kidney disease stage III, history of alcohol abuse, possible obstructive sleep apnea not previously worked up. Patient has been noncompliant and has not followed up with cardiology and more than 1-1/2 years and greater than [address] Nava. Patient was previously on along with the medications including Aldactone, hydralazine, eliquis, Imdur Lasix and potassium, labetalol and Protonix. He states the only medications he is still taking his Lasix and hydralazine. Patient complains of edema in his abdomen, lower extremities for 1-1/2 weeks. He states he has been taking Lasix he thinks it's 20 mg daily and has been urinating well. He also complains of difficulty breathing with ambulation. No lightheadedness or dizziness, no palpitations, no chest pain. Patient's father is at bedside. Patient was found to be afebrile, heart rate 113, blood pressure 222/129, pulse ox 95% on room air. EKG sinus tachycardia CBC was unremarkable. INR 1.1. Electrolytes normal. BUN 17 and creatinine 1.38. Blood sugar 108. Magnesium 2.2. Liver function tests were normal. ProBNP 7940. Troponin 0.084. Albumin 3.2. Urinalysis 3+ protein. Chest x-ray reveals cardiomegaly with mild to borderline moderate interstitial and mild alveolar edema favoring CHF exacerbation or fluid overload state. Patient was started on IV Lasix and admitted to the cardiac stepdown floor and cardiology consult requested. Patient is seen today in the emergency center waiting for bed. 03/15: Patient is seen today on the cardiac stepdown unit#, patient denies having chest pain, he continues to have lower extremity and torso edema but improving. He has had good urine output. No weight recorded today. CBC is unremarkable. Repeat troponins were 0.073 and 0.099. Blood pressure remained elevated last evening patient was also started on lisinopril 40 mg daily, this morning patient was seen by cardiology and started on heparin drip, aspirin Coreg and scheduled for cardiac catheterization today. Echocardiogram reveals EF of 20-25%, severe left atrial enlargement, 3+ tricuspid regurgitation. REVIEW OF SYSTEMS Constitutional: No fever, no chills, no night sweats. No weight change. No weakness, fatigue or lethargy. No daytime sleepiness. EENT: No headache. No blurred vision or double vision. No loss of Hearing, no ringing in the ears, no dizziness. No nasal drainage or congestion. No epistaxis. No sore throat. Lungs: Reports shortness of breath, cough, no sputum production. No wheezing. Reports dyspnea with exertion. Cardiovascular: No chest pain, reports lower extremity edema. No palpitations. No paroxysmal nocturnal dyspnea. Reports reports abdominal edema. orthopnea. No lightheadedness or dizziness. No syncopal episodes. Abdominal: No abdominal pain. No nausea, vomiting. No diarrhea. No constipation. No bloody or tarry stools. No loss of appetite. Genitourinary: No dysuria, increased frequency, urgency. No urinary retention. Musculoskeletal: No myalgias. No muscle weakness, no gait dysfunction, no frequent falls. No back pain. No neck pain. Integumentary: No wounds, no lesions. No rash or pruritus. No unusual bruising. No change in hair or nails. Neurologic: No aphasia. No facial droop. No change in mentation. No head injury. No headache. No paralysis. No paresthesia. Psychiatric: No depression. No anxiety. No mood swings. Endocrine: No abnormal blood sugars. No weight change. PHYSICAL EXAMINATION Gen: This is an obese 51-year-old male. He is resting on chair and appears to be comfortable and in no acute distress. HEENT: Head is atraumatic, normocephalic. Pupils equal, round. Sclerae is anicteric. NECK: Supple. No JVD. No lymphadenopathy. No thyromegaly. LUNGS: Diminished breath sounds bilaterally. No wheezes or rhonchi. No intercostal retractions. No accessory muscle usage HEART: Regular rate and rhythm. No murmur. ABDOMEN: Soft. Bowel sounds are present. No masses. No tenderness. Generalized anasarca lower torso, hips. EXTREMITIES: 2+ pedal edema. No calf tenderness. Small wounds to the left pretibial area with serous drainage. NEUROLOGICAL: Patient is awake, alert and oriented x3. Cranial nerves 2 through 12 are grossly intact. ASSESSMENT AND PLAN 1. Acute on chronic systolic heart failure. Start patient on Lasix 40 mg IV every 8 hours, Aldactone 25 mg daily, monitor I&O, daily weights, electrolytes and renal function, cardiology consult 2. Nonischemic cardiomyopathy most likely alcoholic cardiomyopathy with previous EF of 20%. 3. Hypertensive urgency. Continue Lasix, increased to 100 hydralazine 25 mg 3 times daily scheduled, Aldactone, lisinopril 40 mg daily, monitor blood pressure closely. 4. Elevated troponins. Cardiology consult appreciated, patient started on heparin drip, Coreg, atorvastatin, scheduled for cardiac catheterization today. 5. History of left atrial thrombus was previously on eliquis. 6. Early cellulitis to the left lower extremity. Silvadene wrap to the left lower extremity, Mario wrap as well to the right lower extremity. 7. Chronic kidney disease stage III. Avoid nephrotoxic agents 8. Alcohol abuse. 9. Possible obstructive sleep apnea. Patient would benefit from outpatient sleep study. 10. GI prophylaxis. Protonix. 11. DVT prophylaxis. Lovenox. DISCHARGE PLAN Return home. Impression and plan of care have been directed as dictated by the signing physic ian. Sun Sin nurse practitioner acting as scribe for signing physician. Objective - Vital Signs Vital signs: Vital Signs Temp 97.9 F 03/15/22 04:00 Pulse 84 03/15/22 08:00 Resp 16 03/15/22 08:00 BP 172/103 03/15/22 08:00 Pulse Ox 96 03/15/22 08:00 Intake & Output 03/14/22 03/15/22 03/15/22 18:59 06:59 18:59 Intake Total 10 Output Total 4000 Balance 10 -4000 Weight 95.254 kg Intake: IV 10 Invasive Line 1 10 Output: Urine 4000 Other: Voiding Method Toilet Toilet Urinal Urinal # Voids 1 - Labs CBC & Chem 7: 03/15/22 07:57 03/14/22 10:52 Labs: Abnormal Lab Results - Last 24 Hours (Table) 03/14/22 03/14/22 03/14/22 Range/Units 10:29 10:52 10:52 MCHC 30.6 L (31.0-37.0) g/dL Lymphocytes # 0.6 L (1.0-4.8) k/uL Creatinine 1.38 H (0.66-1.25) mg/dL Glucose 108 H (74-99) mg/dL Troponin I 0.084 H* (0.000-0.034) ng/mL Albumin 3.2 L (3.5-5.0) g/dL Urine Protein (Negative) Hyaline Casts (0-2) /lpf Urine Mucus (None) /hpf 03/14/22 03/14/22 03/14/22 Range/Units 12:04 13:35 16:44 MCHC (31.0-37.0) g/dL Lymphocytes # (1.0-4.8) k/uL Creatinine (0.66-1.25) mg/dL Glucose (74-99) mg/dL Troponin I 0.073 H* 0.099 H* (0.000-0.034) ng/mL Albumin (3.5-5.0) g/dL Urine Protein 3+ H (Negative) Hyaline Casts 6 H (0-2) /lpf Urine Mucus Rare H (None) /hpf 03/15/22 Range/Units 07:57 MCHC 30.9 L (31.0-37.0) g/dL Lymphocytes # (1.0-4.8) k/uL Creatinine (0.66-1.25) mg/dL Glucose (74-99) mg/dL Troponin I (0.000-0.034) ng/mL Albumin (3.5-5.0) g/dL Urine Protein (Negative) Hyaline Casts (0-2) /lpf Urine Mucus (None) /hpf
--- NOTE | 2022-03-15 11:15 | P.CRDCN ---
History of Present Illness History of present illness: HISTORY OF PRESENTING ILLNESS This is a pleasant 51-year-old male past medical history significant for hypertension, nonischemic cardiomyopathy, alcohol abuse, chronic kidney disease. He used to follow with Dr. Valera, has not been seen since 2019. We have been asked to see in consultation for congestive heart failure. Presents emergency department with worsening shortness of breath with exertion for one week, increased bilateral lower extremity edema, fatigue, 30 pound weight gain in one week. He also states she's been noncompliant with his medications. He denies any chest pain, lightheadedness, dizziness, orthopnea PND, palpitations, syncope or near syncope. He denies any tobacco use. Patient currently drinks about 10 beers per week. Denies any illicit drug use. He denies any history of coronary disease, LA, stroke, diabetes. He denies ever undergoing cardiac catheterization. He states he is adopted and does not know his family history. DIAGNOSTICS EKG reveals sinus tachycardia, heart rate 101, T wave inversions in lateral leads and V2, no acute ST ST-T wave changes to suggest ischemia. Telemetry tracings indicate sinus mechanism, heart rate 80s -100 Chest xray cardiomegaly with mild to borderline moderate interstitial and mild alveolar edema. Echocardiogram revealed EF of 2025 percent, moderate right atrial dilatation, severe left atrial enlargement, 3+ tricuspid regurgitation. Prior echocardiogram 04/2020 revealed an EF of less than 20%. Patient did not undergo cardiac cath at that time. Laboratory reviewed, troponin 0.08, 0.0 7. 0.05, sodium 137, potassium 4.4, BUN 17, serum creatinine 1.3, magnesium 2.2, CBC unremarkable. Current home medications include hydralazine 100 mg 3 times a day, Lasix 40 mg daily REVIEW OF SYSTEMS At the time of my exam: CONSTITUTIONAL: Denies fever or chills. CARDIOVASCULAR: Denies chest pain, +shortness of breath, Denies orthopnea, PND or palpitations. +LE edema RESPIRATORY: Denies cough. GASTROINTESTINAL: Denies abdominal pain, diarrhea, constipation, nausea or vomiting. MUSCULOSKELETAL: Denies myalgias. NEUROLOGIC: Denies numbness, tingling, headacbe or weakness. ENDOCRINE: Denies fatigue, weight change, polydipsia or polyurina. GENITOURINARY: Denies burning, hematuria or urgency with micturation. HEMATOLOGIC: Denies history of anemia or bleeding. PHYSICAL EXAMINATION Blood pressure 172/103, heart rate 84, afebrile, saturations 96% on room air CONSTITUTIONAL: No apparent distress. HEENT: Head is normocephalic. Pupils are equal, round. Sclerae anicteric. Mucous membranes of the mouth are moist. No JVD. No carotid bruit. CHEST EXAMINATION: Lungs crackles bilaterally to auscultation. No chest wall tenderness is noted on palpation or with deep breathing. HEART EXAMINATION: Regular rate and rhythm. S1, S2 heard. Systolic ejection murmur at apex. ABDOMEN: Soft, nontender. Positive bowel sounds. EXTREMITIES: 2+ peripheral pulses, 2-3+ bilateral lower extremity edema and no calf tenderness. NEUROLOGIC EXAMINATION: Patient is awake, alert and oriented x3. ASSESSMENT Acute heart failure with reduced ejection fraction Cardiomyopathy, ischemic vs non-ischemic Elevated troponin, rule out ischemia, could also be related to tachycardia and heart failure Hypertension Alcohol use Chronic kidney disease Non-compliance with medications PLAN IV Lasix 40mg Q8HR Monitor I/Os, daily weights renal function and electrolytes Maximize heart failure regimen as tolerated Obtain lipid panel Carvedilol 6.25mg BID Continue aspirin, hydralazine, lisinopril, and spironolactone Recommend cardiac catheterization. Patient agreeable. Plan to be done by Dr. Freire. I have discussed the risks, benefits and alternative therapies for the above- mentioned procedure and for both sedation/analgesia as well as necessary blood product administration, if indicated, as they pertain to this patient. The patient has indicated understanding and acceptance of the risks and procedures discussed. Questions have been answered appropriately and he is agreeable to move forward with the above-stated procedure. Nurse practitioner note has been reviewed by physician. Signing provider agrees with the documented findings, assessment, and plan of care. Past Medical History Past Medical History: Heart Failure, Hypertension Additional Past Medical History / Comment(s): (L) Ventrical blood clot 3.5 year ago History of Any Multi-Drug Resistant Organisms: None Reported Past Surgical History: Orthopedic Surgery Additional Past Surgical History / Comment(s): toe and arm surgery Past Anesthesia/Blood Transfusion Reactions: No Reported Reaction Past Psychological History: No Psychological Hx Reported Smoking Status: Never smoker Past Alcohol Use History: Occasional Additional Past Alcohol Use History / Comment(s): Few drinks per weel no more than 10. Beer Past Drug Use History: None Reported - Past Family History Mother History Unknown: Yes Father History Unknown: Yes Medications and Allergies Home Medications Medication Instructions Recorded Confirmed Type Furosemide [Lasix] 40 mg PO DAILY 03/14/22 03/14/22 History [place]-3 Fatty Acids/Fish Oil [Fish 1 cap PO DAILY 03/14/22 03/14/22 History Oil 1,000 mg Softgel] hydrALAZINE HCL [Apresoline] 100 mg PO TID 03/14/22 03/14/22 History Allergies Allergy/AdvReac Type Severity Reaction Status Date / Time warfarin [From Coumadin] Allergy Swelling Verified 03/14/22 10:59 Physical Exam Vitals: Vital Signs Temp Pulse Pulse Resp BP BP Pulse Ox 03/15/22 04:00 97.9 F 81 18 170/109 95 03/15/22 02:00 83 18 03/15/22 00:00 98.0 F 83 18 158/92 95 03/14/22 20:00 97.4 F L 94 18 168/108 94 L 03/14/22 19:02 188/122 03/14/22 15:39 97 18 196/104 98 03/14/22 14:35 86 18 162/119 96 03/14/22 13:00 90 16 182/123 99 03/14/22 09:55 97.7 F 113 H 22 222/129 95 Intake and Output 03/14/22 03/15/22 03/15/22 22:59 06:59 14:59 Intake Total 10 Output Total 3000 1000 Balance -2990 -1000 Intake: IV 10 Invasive Line 1 10 Output: Urine 3000 1000 Other: Voiding Method Toilet Toilet Urinal Urinal # Voids 2 1 Results 03/15/22 07:57 03/15/22 07:57 Cardiac Enzymes 03/14/22 03/14/22 03/14/22 Range/Units 10:52 10:52 13:35 AST 24 (17-59) U/L Troponin I 0.084 H* 0.073 H* (0.000-0.034) ng/mL 03/14/22 Range/Units 16:44 AST (17-59) U/L Troponin I 0.099 H* (0.000-0.034) ng/mL Coagulation 03/14/22 Range/Units 10:29 PT 11.3 (9.0-12.0) sec APTT 24.1 (22.0-30.0) sec CBC 03/14/22 Range/Units 10:29 WBC 7.1 (3.8-10.6) k/uL RBC 4.82 (4.30-5.90) m/uL Hgb 13.9 (13.0-17.5) gm/dL Hct 45.4 (39.0-53.0) % Plt Count 317 (150-450) k/uL Comprehensive Metabolic Panel 03/14/22 Range/Units 10:52 Sodium 137 (137-145) mmol/L Potassium 4.4 (3.5-5.1) mmol/L Chloride 106 (98-107) mmol/L Carbon Dioxide 27 (22-30) mmol/L BUN 17 (9-20) mg/dL Creatinine 1.38 H (0.66-1.25) mg/dL Glucose 108 H (74-99) mg/dL Calcium 8.4 (8.4-10.2) mg/dL AST 24 (17-59) U/L ALT 18 (4-49) U/L Alkaline Phosphatase 62 (38-126) U/L Total Protein 6.6 (6.3-8.2) g/dL Albumin 3.2 L (3.5-5.0) g/dL Current Medications Generic Name Dose Route Start Last Admin Trade Name Freq PRN Reason Stop Dose Admin Acetaminophen 650 mg 03/14/22 11:55 Acetaminophen Tab 325 Mg Tab PO Q6HR PRN Mild Pain or Fever > 100.5 Enoxaparin Sodium 40 mg 03/15/22 09:00 Enoxaparin 40 Mg/0.4 Ml Syringe SQ DAILY JEEVAN Furosemide 40 mg 03/14/22 20:00 03/15/22 05:34 Furosemide 10 Mg/Ml 4 Ml Vial IV 40 mg Q8H JEEVAN Administration Hydralazine HCl 100 mg 03/14/22 22:00 03/14/22 19:03 Hydralazine Hcl 50 Mg Tab PO 100 mg TID JEEVAN Administration Hydralazine HCl 25 mg 03/14/22 17:48 Hydralazine Hcl 25 Mg Tab PO QID PRN Blood Pressure - High Lisinopril 40 mg 03/14/22 17:45 03/14/22 17:47 Lisinopril 20 Mg Tab PO 40 mg DAILY JEEVAN Administration Naloxone HCl 0.2 mg 03/14/22 11:55 Naloxone 0.4 Mg/Ml 1 Ml Vial IV Q2M PRN Opioid Reversal Pantoprazole Sodium 40 mg 03/15/22 07:30 03/15/22 05:34 Pantoprazole 40 Mg Tablet PO 40 mg [id number] JEEVAN Administration Silver Sulfadiazine 1 applic 03/14/22 17:15 03/14/22 17:46 Silver Sulfadiazine 1% Cream 25 Gm Tube TOPICAL 1 applic DAILY JEEVAN Administration Protocol Spironolactone 25 mg 03/14/22 13:15 03/14/22 14:35 Spironolactone 25 Mg Tab PO 25 mg DAILY JEEVAN Administration Intake and Output 03/14/22 03/15/22 03/15/22 22:59 06:59 14:59 Intake Total 10 Output Total 3000 1000 Balance -2990 -1000 Intake: IV 10 Invasive Line 1 10 Output: Urine 3000 1000 Other: Voiding Method Toilet Toilet Urinal Urinal # Voids 2 1 03/14/22 10:29 03/14/22 10:52
[2022-03-16] MEDS: PANTOPRAZOLE 40 MG TABLET PO SCH (06:41)
[2022-03-16] MEDS: carvediloL 6.25 MG TAB PO SCH ×2 (06:41→16:12)
[2022-03-16] MEDS ORDERED: HEPARIN SODIUM,PORCINE 10,000 UNIT in SODIUM CHLORIDE 0.9% 1,000 ML IRRIGATION PRN (07:00)
[2022-03-16] MEDS ORDERED: HEPARIN SODIUM,PORCINE 2,500 UNIT in SODIUM CHLORIDE 0.9% 250 ML IRRIGATION PRN (07:00)
[2022-03-16] MEDS: FUROSEMIDE 10 MG/ML 4 ML VIAL IV SCH ×2 (07:44→21:08)
[2022-03-16 07:57] LABS: Basophils # (A) 0.1 k/uL (0-0.2); Basophils % (A) 1 %; Eosinophils # (A) 0.4 k/uL (0-0.7); Eosinophils % (A) 5 %; HCT 44.7 % (39.0-53.0); HGB 13.6 gm/dL (13.0-17.5); Hypochromasia Slight; Lymphocytes # (A) 0.7 k/uL (1.0-4.8); Lymphocytes % (A) 10 %; MCH 28.6 pg (25.0-35.0); MCHC 30.3 g/dL (31.0-37.0); MCV 94.3 fL (80.0-100.0); Mean Platelet Volume 8.2; Monocytes # (A) 0.5 k/uL (0-1.0); Monocytes % (A) 8 %; Neutrophils # (A) 4.8 k/uL (1.3-7.7); Neutrophils % (A) 74 %; Platelet Count 298 k/uL (150-450); RBC 4.75 m/uL (4.30-5.90); RDW 14.5 % (11.5-15.5); WBC 6.5 k/uL (3.8-10.6)
[2022-03-16 08:18] LABS: Calcium 8.3 mg/dL (8.4-10.2); Magnesium 2.1 mg/dL (1.6-2.3); Potassium 4.3 mmol/L (3.5-5.1)
[2022-03-16] MEDS: hydrALAZINE HCL 50 MG TAB PO SCH ×3 (08:39→21:08)
[2022-03-16] MEDS: ENOXAPARIN 40 MG/0.4 ML SYRINGE SQ SCH (08:39)
[2022-03-16] MEDS: ASPIRIN 81 MG PO SCH (08:39)
[2022-03-16] MEDS: SPIRONOLACTONE 25 MG TAB PO SCH (08:39)
--- NOTE | 2022-03-16 09:20 | P.PN ---
Subjective Progress Note Date: 03/16/22 HISTORY OF PRESENT ILLNESS This is a 51-year-old male patient of Dr. Nava and Dr. Valera with past medical history of hypertension, nonischemic cardiomyopathy with EF less than 20 %, history of left atrial thrombus was previously on eliquis, chronic kidney disease stage III, history of alcohol abuse, possible obstructive sleep apnea not previously worked up. Patient has been noncompliant and has not followed up with cardiology and more than 1-1/2 years and greater than [address] Nava. Patient was previously on along with the medications including Aldactone, hydralazine, eliquis, Imdur Lasix and potassium, labetalol and Protonix. He states the only medications he is still taking his Lasix and hydralazine. Patient complains of edema in his abdomen, lower extremities for 1-1/2 weeks. He states he has been taking Lasix he thinks it's 20 mg daily and has been urinating well. He also complains of difficulty breathing with ambulation. No lightheadedness or dizziness, no palpitations, no chest pain. Patient's father is at bedside. Patient was found to be afebrile, heart rate 113, blood pressure 222/129, pulse ox 95% on room air. EKG sinus tachycardia CBC was unremarkable. INR 1.1. Electrolytes normal. BUN 17 and creatinine 1.38. Blood sugar 108. Magnesium 2.2. Liver function tests were normal. ProBNP 7940. Troponin 0.084. Albumin 3.2. Urinalysis 3+ protein. Chest x-ray reveals cardiomegaly with mild to borderline moderate interstitial and mild alveolar edema favoring CHF exacerbation or fluid overload state. Patient was started on IV Lasix and admitted to the cardiac stepdown floor and cardiology consult requested. Patient is seen today in the emergency center waiting for bed. 03/15: Patient is seen today on the cardiac stepdown unit#, patient denies having chest pain, he continues to have lower extremity and torso edema but improving. He has had good urine output. No weight recorded today. CBC is unremarkable. Repeat troponins were 0.073 and 0.099. Blood pressure remained elevated last evening patient was also started on lisinopril 40 mg daily, this morning patient was seen by cardiology and started on heparin drip, aspirin Coreg and scheduled for cardiac catheterization today. Echocardiogram reveals EF of 20-25%, severe left atrial enlargement, 3+ tricuspid regurgitation. 03/16: Cardiac catheterization was delayed because patient had rise in his creatinine to 1.6 yesterday. He is scheduled today with Dr. Freire. Repeat blood work reveals CBC unremarkable. BUN 16 and creatinine 1.4. CO2 35 otherwise electrolytes are normal. Magnesium 2.1 and potassium 4.3. Patient denies having any chest pain and no shortness of breath. He is comfortable at rest. Edema is slowly improving. Weights are inaccurate. Anticipate possible discharge in the next 24-48 hours. Discussed in detail with the patient the need for outpatient follow-up and compliance with regime and patient verbalizes understanding REVIEW OF SYSTEMS Constitutional: No fever, no chills, no night sweats. No weakness, fatigue or lethargy. No daytime sleepiness. EENT: No headache. No blurred vision or double vision. No loss of Hearing, no ringing in the ears, no dizziness. No nasal drainage or congestion. No epistaxis. No sore throat. Lungs: Reports shortness of breath-improving, cough, no sputum production. No wheezing. Reports dyspnea with exertion. Cardiovascular: No chest pain, reports lower extremity edema-improving. No palpitations. No paroxysmal nocturnal dyspnea. Reports reports abdominal edema. orthopnea. No lightheadedness or dizziness. No syncopal episodes. Abdominal: No abdominal pain. No nausea, vomiting. No diarrhea. No constipation. No bloody or tarry stools. No loss of appetite. Genitourinary: No dysuria, increased frequency, urgency. No urinary retention. Musculoskeletal: No myalgias. No muscle weakness, no gait dysfunction, no frequent falls. No back pain. No neck pain. Integumentary: No wounds, no lesions. No rash or pruritus. No unusual bruising. No change in hair or nails. Neurologic: No aphasia. No facial droop. No change in mentation. No head injury. No headache. No paralysis. No paresthesia. Psychiatric: No depression. No anxiety. No mood swings. Endocrine: No abnormal blood sugars. No weight change. PHYSICAL EXAMINATION Gen: This is an obese 51-year-old male. He is resting on chair and appears to be comfortable and in no acute distress. HEENT: Head is atraumatic, normocephalic. Pupils equal, round. Sclerae is anicteric. NECK: Supple. No JVD. No lymphadenopathy. No thyromegaly. LUNGS: Diminished breath sounds bilaterally. No wheezes or rhonchi. No intercostal retractions. No accessory muscle usage HEART: Regular rate and rhythm. No murmur. ABDOMEN: Soft. Bowel sounds are present. No masses. No tenderness. Generalized anasarca lower torso, hips. EXTREMITIES: 2+ pedal edema. No calf tenderness. Small wounds to the left pretibial area with serous drainage. NEUROLOGICAL: Patient is awake, alert and oriented x3. Cranial nerves 2 through 12 are grossly intact. ASSESSMENT AND PLAN 1. Acute on chronic systolic heart failure. Start patient on Lasix 40 mg IV every 12 hours, Aldactone 25 mg daily, Coreg 6.25 mg twice daily, monitor I&O, daily weights, electrolytes and renal function, cardiology consult 2. Nonischemic cardiomyopathy most likely alcoholic cardiomyopathy with previous EF of 20%. 3. Hypertensive urgency. Continue Lasix, Coreg 6.25 mg twice daily, hydralazine 100 mg 3 times daily, Aldactone. Monitor blood pressure closely. 4. Elevated troponins. Cardiology consult appreciated, patient started on heparin drip, Coreg, atorvastatin, scheduled for cardiac catheterization today. 5. History of left atrial thrombus was previously on eliquis. 6. Early cellulitis to the left lower extremity. Silvadene wrap to the left lower extremity, Mario wrap as well to the right lower extremity. 7. Acute kidney injury with Chronic kidney disease stage III. Avoid nephrotoxic agents, continue to monitor renal function 8. Alcohol abuse. 9. Possible obstructive sleep apnea. Patient would benefit from outpatient sleep study. 10. GI prophylaxis. Protonix. 11. DVT prophylaxis. Lovenox. DISCHARGE PLAN Return home. Impression and plan of care have been directed as dictated by the signing physic ian. Sun Sin nurse practitioner acting as scribe for signing physician. Objective - Vital Signs Vital signs: Vital Signs Temp 98.2 F 03/16/22 04:00 Pulse 80 03/16/22 04:00 Resp 18 03/16/22 04:00 BP 158/93 03/16/22 04:00 Pulse Ox 94 L 03/16/22 04:00 Intake & Output 03/15/22 03/16/22 03/16/22 18:59 06:59 18:59 Intake Total 358 Output Total 875 2399 Balance -517 -2524 Weight 115.2 kg Intake: Oral 358 Output: Urine 875 2523 Other: Voiding Method Toilet Toilet Urinal Urinal # Voids 3 - Labs CBC & Chem 7: 03/16/22 07:41 03/16/22 07:41 Labs: Abnormal Lab Results - Last 24 Hours (Table) 03/15/22 03/15/22 03/16/22 Range/Units 07:57 07:57 07:41 MCHC 30.9 L (31.0-37.0) g/dL Lymphocytes # (1.0-4.8) k/uL Carbon Dioxide 33 H 35 H (22-30) mmol/L Creatinine 1.61 H 1.40 H (0.66-1.25) mg/dL Glucose 106 H 100 H (74-99) mg/dL Calcium 8.3 L (8.4-10.2) mg/dL Albumin 3.2 L (3.5-5.0) g/dL 03/16/22 Range/Units 07:41 MCHC 30.3 L (31.0-37.0) g/dL Lymphocytes # 0.7 L (1.0-4.8) k/uL Carbon Dioxide (22-30) mmol/L Creatinine (0.66-1.25) mg/dL Glucose (74-99) mg/dL Calcium (8.4-10.2) mg/dL Albumin (3.5-5.0) g/dL
--- NOTE | 2022-03-16 12:08 | P.PN ---
Subjective This is a pleasant 51-year-old male past medical history significant for hypertension, cardiomyopathy (has never undergone cardiac catheterization in the past), Non-compliance, alcohol abuse, chronic kidney disease. He used to follow with Dr. Valera, has not been seen since 2019. We have been asked to see in consultation for congestive heart failure. Presents emergency department with worsening shortness of breath with exertion for one week, increased bilateral lower extremity edema, fatigue, 30 pound weight gain in one week. He also state s she's been noncompliant with his medications. He presents in acute heart failure. Found to have an EF 20-25%. DIAGNOSTICS Echocardiogram revealed EF of 5%, moderate right atrial dilatation, severe left atrial enlargement, 3+ tricuspid regurgitation. Prior echocardiogram 04/2020 revealed an EF of less than 20%. Patient did not undergo cardiac cath at that time. 03/16/2022 Patient seen and examined at bedside, no acute distress. his breathing and lower extremity edema has improved. His kidney function improved. Scr 1.40 (1.61 yesterday). Vital signs are stable. I/os with -3042mL over the past 24 hours. PHYSICAL EXAMINATION Vitals reviewed CONSTITUTIONAL: No apparent distress. HEENT: No JVD. CHEST EXAMINATION: Lungs crackles bilaterally to auscultation. No chest wall tenderness is noted on palpation or with deep breathing. HEART EXAMINATION: Regular rate and rhythm. S1, S2 heard. Systolic ejection murmur at apex. ABDOMEN: Soft, nontender. Positive bowel sounds. EXTREMITIES: 2+ peripheral pulses, 2+ bilateral lower extremity edema and no calf tenderness. NEUROLOGIC EXAMINATION: Patient is awake, alert and oriented x3. ASSESSMENT Acute heart failure with reduced ejection fraction 20-25% Cardiomyopathy, ischemic vs non-ischemic - Elevated troponin, rule out ischemia, could also be related to tachycardia and heart failure Hypertension Alcohol use Chronic kidney disease Non-compliance with medications PLAN IV Lasix 40mg BID Monitor I/Os, daily weights renal function and electrolytes Maximize heart failure regimen as tolerated Carvedilol 6.25mg BID Lisinopril on hold due to kidney function Continue aspirin, hydralazine, and spironolactone Recommend cardiac catheterization. Patient agreeable. Plan to be done by Dr. Freire today I have discussed the risks, benefits and alternative therapies for the above- mentioned procedure and for both sedation/analgesia as well as necessary blood product administration, if indicated, as they pertain to this patient. The patient has indicated understanding and acceptance of the risks and procedures discussed. Questions have been answered appropriately and he is agreeable to move forward with the above-stated procedure. Nurse practitioner note has been reviewed by physician. Signing provider agrees with the documented findings, assessment, and plan of care. Objective - Vital Signs Vital signs: Vital Signs Temp 98.0 F 03/16/22 08:37 Pulse 77 03/16/22 08:37 Resp 18 03/16/22 08:37 BP 138/88 03/16/22 08:37 Pulse Ox 95 03/16/22 08:37 Intake & Output 03/15/22 03/16/22 03/16/22 18:59 06:59 18:59 Intake Total 358 Output Total 875 2525 Balance -517 -2525 Weight 115.2 kg Intake: Oral 358 Output: Urine 875 2525 Other: Voiding Method Toilet Toilet Toilet Urinal Urinal Urinal # Voids 3 - Labs CBC & Chem 7: 03/16/22 07:41 03/16/22 07:41 Labs: Abnormal Lab Results - Last 24 Hours (Table) 03/16/22 03/16/22 Range/Units 07:41 07:41 MCHC 30.3 L (31.0-37.0) g/dL Lymphocytes # 0.7 L (1.0-4.8) k/uL Carbon Dioxide 35 H (22-30) mmol/L Creatinine 1.40 H (0.66-1.25) mg/dL Glucose 100 H (74-99) mg/dL Calcium 8.3 L (8.4-10.2) mg/dL
[2022-03-16] MEDS ORDERED: ASPIRIN 325 MG TAB PO STA (13:36)
[2022-03-16] MEDS ORDERED: SODIUM CHLORIDE 0.9% 500 ML 500 ML IV ONE (14:30)
[2022-03-16] MEDS ORDERED: LIDOCAINE 1% INJ 10MG/ML (5 ML VIAL-PF) SQ ONE (15:03)
[2022-03-16] MEDS ORDERED: MIDAZOLAM 2 MG/2 ML VIAL IV ONE (15:04)
[2022-03-16] MEDS ORDERED: VERAPAMIL SYRINGE (5 MG/10 ML) INTRAARTER ONE (15:06)
[2022-03-16] MEDS ORDERED: HEPARIN SODIUM 1,000 UN/ML (10ML VL) IV ONE (15:15)
[2022-03-16] MEDS ORDERED: IOPAMIDOL-370 125ML BTL INJ ONE (15:23)
[2022-03-16] MEDS ORDERED: RX INFO: IV CONTRAST WAS GIVEN 1 EACH MISC MISCELLANE PRN (15:24)
[2022-03-16] MEDS ORDERED: SODIUM CHLORIDE 0.9% 1,000 ML IV SCH (15:30)
--- NOTE | 2022-03-16 22:32 | P.PCN ---
Date of Procedure: 03/16/22 Operative Findings: CARDIAC CATHETERIZATION PERFORMING PHYSICIAN: Gordo Freire MD, RPVI PROCEDURE PERFORMED: 1. Right heart catheterization 2. Left heart catheterization 3. Selective right and left coronary angiogram INDICATION: Cardiomyopathy which is severe in this 51-year-old gentleman who has multiple risk factors for CAD. COMPLICATION: None APPROACH: Right radial artery and right basilic vein LEVEL OF SEDATION: Moderate with a sedation length of 12 minutes PROCEDURE DESCRIPTION: After obtaining an informed consent the patient was brought to the cardiac salvage laborer. The right radial artery was cannulated using micropuncture technique, the micropuncture wire passed easily then I placed a 6 [place] sheath at the right radial artery. Subsequently I gave the patient 2 mg of verapamil intra-arterial and he was given about 5000 of heparin intravenous. I did exchange the transvenous catheter in the basilic vein using a 018 wire into a 6 [place] catheter. Subsequently right heart catheterization was performed using [place] catheter which advanced under fluoroscopy guidance to the right heart chambers and subsequently to the wedge position. I did pressure measurements as well as cardiac output. Subsequently left heart catheterization was performed using 6 [place] pigtail catheter. After that selective right and left coronary angiogram performed using JR4 and JL 3.5 catheters The procedure was completed without any complication SELECTIVE CORONARY ANGIOGRAM: The RCA: Is a large caliber vessel and the dominant vessel with mild disease in the midportion. Distally bifurcates into PDA and PLV branches and both appeared to be angiographically normal The LM: Is angiographically normal. Bifurcates into LCx and ramus intermedius and LAD The LCx: Is a large caliber vessel and nondominant vessel. Proximally gives rise into a large OM branch which has a critical lesion appeared to be in the range of 80% The ramus intermedius, Is a large caliber vessel which has severe disease in the proximal to midportion The LAD: Is a large caliber vessel with mild disease only. Proximally gives us into a small diagonal branch HEMODYNAMICS: 1. Pulmonary capillary wedge pressure was 25 mmHg 2. PA pressures were as follow systolic of 60 and diastolic of 30 and mean of 42 mmHg 3. RV pressures were as follow systolic of 58 and end diastolic of 17 mmHg 4. RA pressures was 10 mmHg 5. The LVEDP was 18 mmHg 6. The transpulmonary gradient was 17 mmHg 7. The cardiac output was 7.58 L/min with a cardiac index of 3.35 L/min/m 8. The pulmonary vascular resistance was 5 Wood units CONCLUSION: 1. Ischemic cardiomyopathy with severe two vessel CAD 2. Critical CAD involving the left circumflex and ramus intermedius. Both are large caliber vessels 3. Elevated left and right sides filling pressure 4. Pulmonary hypertension, WHO group 2 POSTPROCEDURE MANAGEMENT: PCI of the left circumflex and ramus intermedius in the next 24 hours
[2022-03-17 05:41] LABS: Glucose,Whole Blood 123 mg/dL (75-99)
[2022-03-17] MEDS: PANTOPRAZOLE 40 MG TABLET PO SCH (06:33)
[2022-03-17] MEDS: carvediloL 6.25 MG TAB PO SCH ×2 (06:33→17:26)
[2022-03-17] MEDS: hydrALAZINE HCL 50 MG TAB PO SCH ×3 (06:33→20:25)
[2022-03-17] MEDS: ASPIRIN 81 MG PO SCH (06:33)
[2022-03-17 08:27] LABS: Calcium 8.8 mg/dL (8.4-10.2)
--- NOTE | 2022-03-17 09:25 | P.PN ---
Subjective Progress Note Date: 03/17/22 HISTORY OF PRESENT ILLNESS This is a 51-year-old male patient of Dr. Nava and Dr. Valera with past medical history of hypertension, nonischemic cardiomyopathy with EF less than 20 %, history of left atrial thrombus was previously on eliquis, chronic kidney disease stage III, history of alcohol abuse, possible obstructive sleep apnea not previously worked up. Patient has been noncompliant and has not followed up with cardiology and more than 1-1/2 years and greater than [address] Nava. Patient was previously on along with the medications including Aldactone, hydralazine, eliquis, Imdur Lasix and potassium, labetalol and Protonix. He states the only medications he is still taking his Lasix and hydralazine. Patient complains of edema in his abdomen, lower extremities for 1-1/2 weeks. He states he has been taking Lasix he thinks it's 20 mg daily and has been urinating well. He also complains of difficulty breathing with ambulation. No lightheadedness or dizziness, no palpitations, no chest pain. Patient's father is at bedside. Patient was found to be afebrile, heart rate 113, blood pressure 222/129, pulse ox 95% on room air. EKG sinus tachycardia CBC was unremarkable. INR 1.1. Electrolytes normal. BUN 17 and creatinine 1.38. Blood sugar 108. Magnesium 2.2. Liver function tests were normal. ProBNP 7940. Troponin 0.084. Albumin 3.2. Urinalysis 3+ protein. Chest x-ray reveals cardiomegaly with mild to borderline moderate interstitial and mild alveolar edema favoring CHF exacerbation or fluid overload state. Patient was started on IV Lasix and admitted to the cardiac stepdown floor and cardiology consult requested. Patient is seen today in the emergency center waiting for bed. 03/15: Patient is seen today on the cardiac stepdown unit#, patient denies having chest pain, he continues to have lower extremity and torso edema but improving. He has had good urine output. No weight recorded today. CBC is unremarkable. Repeat troponins were 0.073 and 0.099. Blood pressure remained elevated last evening patient was also started on lisinopril 40 mg daily, this morning patient was seen by cardiology and started on heparin drip, aspirin Coreg and scheduled for cardiac catheterization today. Echocardiogram reveals EF of 20-25%, severe left atrial enlargement, 3+ tricuspid regurgitation. 03/16: Cardiac catheterization was delayed because patient had rise in his creatinine to 1.6 yesterday. He is scheduled today with Dr. Freire. Repeat blood work reveals CBC unremarkable. BUN 16 and creatinine 1.4. CO2 35 otherwise electrolytes are normal. Magnesium 2.1 and potassium 4.3. Patient denies having any chest pain and no shortness of breath. He is comfortable at rest. Edema is slowly improving. Weights are inaccurate. Anticipate possible discharge in the next 24-48 hours. Discussed in detail with the patient the need for outpatient follow-up and compliance with regime and patient verbalizes understanding 03/17: Yesterday, the patient underwent cardiac catheterization with Dr. Freire that revealed ischemic cardiomyopathy with severe 2 vessel coronary artery disease. Critical CAD involving the left circumflex and ramus intermedius. Elevated left and right side filling pressures, pulmonary hypertension. Patient scheduled to return to the filling station laborer today for angioplasty of the 2 vessels. Patient currently denies any chest pain or shortness of breath. Lower extremity edema significantly improved. He has had good urine output and weight is down 1-1/2 kg from yesterday. Patient has been afebrile, heart rate 77, blood pressure 167/96, blood pressure 97% on room air. Electrolytes are normal with BUN of 17 and creatinine 1.45. Patient may require LifeVest, if not possible discharge on the weekend. REVIEW OF SYSTEMS Constitutional: No fever, no chills, no night sweats. No weakness, fatigue or lethargy. No daytime sleepiness. EENT: No headache. No blurred vision or double vision. No loss of Hearing, no ringing in the ears, no dizziness. No nasal drainage or congestion. No epistaxis. No sore throat. Lungs: Denies shortness of breath, cough, no sputum production. No wheezing. Reports dyspnea with exertion. Cardiovascular: No chest pain, reports lower extremity edema-improving. No palpitations. No paroxysmal nocturnal dyspnea. Reports reports abdominal edema. orthopnea. No lightheadedness or dizziness. No syncopal episodes. Abdominal: No abdominal pain. No nausea, vomiting. No diarrhea. No constipation. No bloody or tarry stools. No loss of appetite. Genitourinary: No dysuria, increased frequency, urgency. No urinary retention. Musculoskeletal: No myalgias. No muscle weakness, no gait dysfunction, no frequent falls. No back pain. No neck pain. Integumentary: No wounds, no lesions. No rash or pruritus. No unusual bruising. No change in hair or nails. Neurologic: No aphasia. No facial droop. No change in mentation. No head injury. No headache. No paralysis. No paresthesia. Psychiatric: No depression. No anxiety. No mood swings. Endocrine: No abnormal blood sugars. No weight change. PHYSICAL EXAMINATION Gen: This is an obese 51-year-old male. He is resting on chair and appears to be comfortable and in no acute distress. HEENT: Head is atraumatic, normocephalic. Pupils equal, round. Sclerae is anicteric. NECK: Supple. No JVD. No lymphadenopathy. No thyromegaly. LUNGS: Diminished breath sounds bilaterally. No wheezes or rhonchi. No intercostal retractions. No accessory muscle usage HEART: Regular rate and rhythm. No murmur. ABDOMEN: Soft. Bowel sounds are present. No masses. No tenderness. Generalized anasarca lower torso, hips. EXTREMITIES: 1+ pedal edema. No calf tenderness. Small wounds to the left pretibial area with serous drainage. NEUROLOGICAL: Patient is awake, alert and oriented x3. Cranial nerves 2 through 12 are grossly intact. ASSESSMENT AND PLAN 1. Acute on chronic systolic heart failure. Start patient on Lasix 40 mg IV ev ken 12 hours, Aldactone 25 mg daily, Coreg 6.25 mg twice daily, monitor I&O, daily weights, electrolytes and renal function, cardiology consult 2. Nonischemic, possible ischemic cardiomyopathy most likely alcoholic cardiomyopathy with previous EF of 20%. 3. Hypertensive urgency. Continue Lasix, Coreg 6.25 mg twice daily, hydralazine 100 mg 3 times daily, Aldactone. Monitor blood pressure closely. 4. Elevated troponins. Cardiology consult appreciated, patient started on heparin drip, Coreg, atorvastatin, scheduled for cardiac catheterization today. 5. History of left atrial thrombus was previously on eliquis. 6. Early cellulitis to the left lower extremity. Silvadene wrap to the left lower extremity, Mario wrap as well to the right lower extremity. 7. Acute kidney injury with Chronic kidney disease stage III. Avoid nephrotoxic agents, continue to monitor renal function 8. Alcohol abuse. 9. Possible obstructive sleep apnea. Patient would benefit from outpatient sleep study. 10. Coronary artery disease. Patient to return to the cardiac filling station laborer today for angioplasty with Dr. Freire. 11. GI prophylaxis. Protonix. 12. DVT prophylaxis. Lovenox. DISCHARGE PLAN Return home. Impression and plan of care have been directed as dictated by the signing physician. Sun Sin nurse practitioner acting as scribe for signing physician. Objective - Vital Signs Vital signs: Vital Signs Temp 98.0 F 03/17/22 07:59 Pulse 77 03/17/22 07:59 Resp 18 03/17/22 07:59 BP 167/96 03/17/22 07:59 Pulse Ox 97 03/17/22 07:59 Intake & Output 03/16/22 03/17/22 03/17/22 18:59 06:59 18:59 Intake Total 435 Output Total 675 1725 Balance -240 -1725 Weight 113.6 kg Intake: IV 75 Oral 360 Output: Urine 675 1725 Other: Voiding Method Toilet Toilet Urinal Urinal - Labs CBC & Chem 7: 03/16/22 07:41 03/17/22 07:16 Labs: Abnormal Lab Results - Last 24 Hours (Table) 03/17/22 03/17/22 Range/Units 05:39 07:16 Creatinine 1.45 H (0.66-1.25) mg/dL POC Glucose (mg/dL) 123 H (75-99) mg/dL
[2022-03-17] MEDS ORDERED: ASPIRIN 325 MG TAB PO STA (12:10)
[2022-03-17] MEDS ORDERED: VERAPAMIL 2.5 MG/ML 2 ML AMP ONE (12:20)
[2022-03-17] MEDS ORDERED: HEPARIN SODIUM 1,000 UN/ML (10ML VL) ONE (12:31)
[2022-03-17] MEDS ORDERED: IV FLUID CONTINUATION 1,000 ML IV ONE (12:34)
[2022-03-17] MEDS ORDERED: MIDAZOLAM 2 MG/2 ML VIAL IV ONE (12:59)
[2022-03-17] MEDS ORDERED: LIDOCAINE 1% INJ 10MG/ML (5 ML VIAL-PF) SQ ONE (13:01)
[2022-03-17] MEDS: VERAPAMIL SYRINGE (5 MG/10 ML) INTRAARTER ONE ×2 (13:02→14:06)
[2022-03-17] MEDS ORDERED: CLOPIDOGREL 75 MG TAB ONE (13:03)
[2022-03-17] MEDS ORDERED: CLOPIDOGREL 75 MG TAB PO ONE (13:06)
[2022-03-17] MEDS: MIDAZOLAM 2 MG/2 ML VIAL IV ONE ×4 (13:12→13:59)
[2022-03-17] MEDS: NITROGLYCERIN 1000MCG/10ML SYRINGE INTRACORON ONE ×2 (13:24→14:05)
[2022-03-17] MEDS ORDERED: IOPAMIDOL-370 125ML BTL INJ ONE ×2 (13:54→14:06)
[2022-03-17] MEDS ORDERED: niCARdipine 25 MG/10 ML VIAL ONE (14:03)
[2022-03-17] MEDS ORDERED: niCARdipine Syringe (1,000 mcg/10 mL) INTRACORON ONE (14:05)
[2022-03-17] MEDS ORDERED: MAG HYDROX/AL HYDROX/SIMETH 30 ML CUP PO PRN (14:28)
[2022-03-17] MEDS ORDERED: NITROGLYCERIN SL TABS 0.4 MG TAB SUBLINGUAL PRN (14:28)
[2022-03-17] MEDS ORDERED: ATROPINE SULFATE 0.1 MG/ML 10ML SYRINGE IV PRN (14:28)
[2022-03-17] MEDS ORDERED: RX INFO: IV CONTRAST WAS GIVEN 1 EACH MISC MISCELLANE PRN (14:28)
[2022-03-17] MEDS ORDERED: ZOLPIDEM 5 MG TAB PO PRN (14:28)
[2022-03-17] MEDS ORDERED: SODIUM CHLORIDE 0.9% 1,000 ML in EMPTY BAG 1 BAG IV SCH (14:30)
--- NOTE | 2022-03-17 14:34 | P.PCN ---
Date of Procedure: 03/17/22 Operative Findings: PERCUTANEOUS CORONARY INTERVENTION Performing physician Gordo Freire M.D. Procedure Performed: 1. Successful stenting of the proximal LCx using 3.5 x 18 Xience drug-eluting stent with an excellent angiographic results. 2. Successful stending of the ramus intermedius using 3.25 x 15 mm Xience drug- eluting stent with an excellent angiographic result. 3. Left heart catheterization Indication: This is a 51-year-old gentleman who underwent yesterday heart catheterization as a workup for cardiomyopathy and he was found to have physical two-vessel CAD. Approach: Right radial art Complications: None Level of Sedation: Moderate with a sedation length of 68 minutes Procedure Discussion: After obtaining an informed consent the patient was brought to the cardiac record label internship. The right radial artery was cannulated using puncture technique, the micro-rupture wire passed easily then I placed a 6-[place] sheath at the right radial artery. Subsequently a give the patient 2 mg of verapamil intra-arterial a and he received a total of 8000 use of heparin IV continuous ACT monitoring was performed throughout the procedure Engaging the left main was performed using JL 3.5 guiding catheter. Subsequently I did wire the left circumflex and ramus intermedius using 20 run through wires. After that for the left circumflex I did balloon using 3.5 x 15 mm which was inflated under 12 lyle for 20 seconds and after that I deployed 3.5 x 18 mm stent where the stent was positioned under fluoroscopy guidance and deployed under its nominal pressure. The final angiogram showed good angiographic results. For the lesion in the ramus intermedius I did wire both the upper and lower subbranch of the ramus intermedius using 2 through wires I have. I did balloon angioplasty of both using 3 mm balloon. After that I stented the main vessel using 3.25 x 15 mm stent where the stent was positioned under fluoroscopy guidance and deployed under its nominal pressure. After that I rewire the upper subbranch again and I did balloon angioplasty on it. Finally I did balloon angioplasty of the main vessel which was a lower subbranch using 3.5 mm NC balloon. The final angiogram showed good angiographic and the procedu re was completed without any chronic elevation Postprocedure Management: 1. Dual antiplatelet therapy using aspirin and Plavix for a minimum of 6 months and ideally a year 2. Continue uptitrate the medication for the cardiomyopathy 3. Follow-up with the patient
[2022-03-17] MEDS: SPIRONOLACTONE 25 MG TAB PO SCH (15:30)
[2022-03-17] MEDS: ENOXAPARIN 40 MG/0.4 ML SYRINGE SQ SCH (15:30)
[2022-03-17] MEDS: FUROSEMIDE 10 MG/ML 4 ML VIAL IV SCH ×2 (15:30→20:25)
[2022-03-17] MEDS: ATORVASTATIN 80 MG TAB PO SCH (20:25)
[2022-03-17] MEDS: hydrALAZINE HCL 25 MG TAB PO PRN (23:51)
[2022-03-18] MEDS: PANTOPRAZOLE 40 MG TABLET PO SCH (06:32)
[2022-03-18] MEDS: carvediloL 6.25 MG TAB PO SCH (06:32)
--- NOTE | 2022-03-18 07:40 | P.PN ---
Subjective Progress Note Date: 03/18/22 Principal diagnosis: Severe CAD/severe ischemic cardiomyopathy This is a pleasant 51-year-old gentleman who was admitted to the hospital with heart failure with evidence of right and left heart failure and was diagnosed with cardiomyopathy B subsequently a heart catheterization was performed and that was right and left heart catheterization which revealed critical 2 vessel CAD with evidence of pulmonary hypertension. The patient underwent yesterday successful stenting of the LCx as well as ramus intermedius with a good angiographic results from right radial approach. He was seen this morning. He states "I feel somewhat better and I feel more energetic". He reports no pain in the chest. He stated that the shortness of breath is improved. Hemodynamically he is somewhat hypertensive and slightly tachycardic and for that reason I'm increasing the dose of carvedilol to 12.5 mg by mouth twice a day. On examination he is also hypervolemic. I am going to keep him on Lasix IV and await for the results of the kidney function. He is on maximize medical treatment except for DARSHAN inhibitor which is on hold at this point because of the kidney function. I would restart him back on DARSHAN inhibitor once the creatinine is back to normal. We will follow-up with the patient. We'll consider doing a limited echocardiogram on him tomorrow Objective - Vital Signs Vital signs: Vital Signs Temp 97.8 F 03/18/22 04:00 Pulse 82 03/18/22 04:00 Resp 19 03/18/22 04:00 BP 158/85 03/18/22 04:00 Pulse Ox 94 L 03/18/22 04:00 Intake & Output 03/17/22 03/18/22 03/18/22 18:59 06:59 18:59 Intake Total 100 Balance 100 Weight 113.1 kg Intake: IV 100 Other: Voiding Method Toilet Toilet Urinal Urinal - Constitutional General appearance: Present: no acute distress - Respiratory Respiratory: bilateral: diminished - Cardiovascular Rhythm: regular Heart sounds: normal: S1, S2 - Labs CBC & Chem 7: 03/16/22 07:41 03/17/22 07:16 Labs: Abnormal Lab Results - Last 24 Hours (Table) 03/17/22 Range/Units 07:16 Creatinine 1.45 H (0.66-1.25) mg/dL Assessment and Plan Assessment: Assessment #1 acute exacerbation of heart failure with reduced ejection fraction #2 severe 2 vessel CAD and status post PCI #3 ischemic cardiomyopathy #4 obesity #5 tachycardia #6 history of alcohol use #7 chronic kidney disease #8 multiple comorbid conditions Plan #1 increase the dose of carvedilol #2 consider starting the patient on DARSHAN inhibitor was the creatinine is back to baseline #3 continue uptitrate the dose of beta kaycee down the line #4 limited echocardiogram tomorrow #5 continue dual antiplatelet therapy along with high intensity statin #6 continue Lasix IV for additional 24-hour
[2022-03-18] MEDS: hydrALAZINE HCL 50 MG TAB PO SCH ×3 (08:39→19:33)
[2022-03-18] MEDS: SPIRONOLACTONE 25 MG TAB PO SCH (08:39)
[2022-03-18] MEDS: ASPIRIN 81 MG PO SCH (08:39)
[2022-03-18] MEDS: CLOPIDOGREL 75 MG TAB PO SCH (08:39)
[2022-03-18] MEDS: FUROSEMIDE 10 MG/ML 4 ML VIAL IV SCH ×2 (08:39→19:34)
[2022-03-18] MEDS: ENOXAPARIN 40 MG/0.4 ML SYRINGE SQ SCH (08:40)
[2022-03-18 09:29] LABS: Calcium 8.8 mg/dL (8.4-10.2)
[2022-03-18 09:51] VITALS: BMI 37.9
--- NOTE | 2022-03-18 13:02 | P.PN ---
Subjective Progress Note Date: 03/18/22 HISTORY OF PRESENT ILLNESS This is a 51-year-old male patient of Dr. Nava and Dr. Valera with past medical history of hypertension, nonischemic cardiomyopathy with EF less than 2 0%, history of left atrial thrombus was previously on eliquis, chronic kidney disease stage III, history of alcohol abuse, possible obstructive sleep apnea not previously worked up. Patient has been noncompliant and has not followed up with cardiology and more than 1-1/2 years and greater than [address] Nava. Patient was previously on along with the medications including Aldactone, hydralazine, eliquis, Imdur Lasix and potassium, labetalol and Protonix. He states the only medications he is still taking his Lasix and hydralazine. Patient complains of edema in his abdomen, lower extremities for 1-1/2 weeks. He states he has been taking Lasix he thinks it's 20 mg daily and has been urinating well. He also complains of difficulty breathing with ambulation. No lightheadedness or dizziness, no palpitations, no chest pain. Patient's father is at bedside. Patient was found to be afebrile, heart rate 113, blood pressure 222/129, pulse ox 95% on room air. EKG sinus tachycardia CBC was unremarkable. INR 1.1. Electrolytes normal. BUN 17 and creatinine 1.38. Blood sugar 108. Magnesium 2.2. Liver function tests were normal. ProBNP 7940. Troponin 0.084. Albumin 3.2. Urinalysis 3+ protein. Chest x-ray reveals cardiomegaly with mild to borderline moderate interstitial and mild alveolar edema favoring CHF exacerbation or fluid overload state. Patient was started on IV Lasix and admitted to the cardiac stepdown floor and cardiology consult requested. Patient is seen today in the emergency center waiting for bed. 03/15: Patient is seen today on the cardiac stepdown unit#, patient denies having chest pain, he continues to have lower extremity and torso edema but improving. He has had good urine output. No weight recorded today. CBC is unremarkable. Repeat troponins were 0.073 and 0.099. Blood pressure remained elevated last evening patient was also started on lisinopril 40 mg daily, this morning patient was seen by cardiology and started on heparin drip, aspirin Coreg and scheduled for cardiac catheterization today. Echocardiogram reveals EF of 20-25%, severe left atrial enlargement, 3+ tricuspid regurgitation. 03/16: Cardiac catheterization was delayed because patient had rise in his creatinine to 1.6 yesterday. He is scheduled today with Dr. Freire. Repeat blood work reveals CBC unremarkable. BUN 16 and creatinine 1.4. CO2 35 otherwise electrolytes are normal. Magnesium 2.1 and potassium 4.3. Patient denies having any chest pain and no shortness of breath. He is comfortable at rest. Edema is slowly improving. Weights are inaccurate. Anticipate possible discharge in the next 24-48 hours. Discussed in detail with the patient the need for outpatient follow-up and compliance with regime and patient verbalizes understanding 03/17: Yesterday, the patient underwent cardiac catheterization with Dr. Freire that revealed ischemic cardiomyopathy with severe 2 vessel coronary artery disease. Critical CAD involving the left circumflex and ramus intermedius. Elevated left and right side filling pressures, pulmonary hypertension. Patient scheduled to return to the [facility] today for angioplasty of the 2 vessels. Patient currently denies any chest pain or shortness of breath. Lower extremity edema significantly improved. He has had good urine output and weight is down 1-1/2 kg from yesterday. Patient has been afebrile, heart rate 77, blood pressure 167/96, blood pressure 97% on room air. Electrolytes are normal with BUN of 17 and creatinine 1.45. Patient may require LifeVest, if not possible discharge on the weekend. 5: 7, patient still has significant edema no chest pain no shortness of breath, no lightheadedness no fever no chills, he lost 2 pounds, however his entry weight is 95 kg, currently weighing 113 kg, vitals are stable, creatinine is 1.3, from previous of 1.4 yesterday. Electrolytes are okay, patient does not have any lightheadedness or chills, issues eating without any difficulties. T- max of 98, pulse ox 95% on room air, systolic blood pressure between 143-158 systolic. On Coreg, IV Lasix 40 every 12, Apresoline when necessary Aldactone, patient is not on any MARIO inhibitor. POD#1, for stent left circumflex and Ramus intermedius left, and ramus intermedius REVIEW OF SYSTEMS Constitutional: No fever, no chills, no night sweats. No weakness, fatigue or lethargy. No daytime sleepiness. EENT: No headache. No blurred vision or double vision. No loss of Hearing, no ringing in the ears, no dizziness. No nasal drainage or congestion. No epistaxis. No sore throat. Lungs: Denies shortness of breath, cough, no sputum production. No wheezing. Reports dyspnea with exertion. Cardiovascular: No chest pain, reports lower extremity edema-improving. No palpitations. No paroxysmal nocturnal dyspnea. Reports reports abdominal edema. orthopnea. No lightheadedness or dizziness. No syncopal episodes. Abdominal: No abdominal pain. No nausea, vomiting. No diarrhea. No constipation. No bloody or tarry stools. No loss of appetite. Genitourinary: No dysuria, increased frequency, urgency. No urinary retention. Musculoskeletal: No myalgias. No muscle weakness, no gait dysfunction, no frequent falls. No back pain. No neck pain. Integumentary: No wounds, no lesions. No rash or pruritus. No unusual bruising. No change in hair or nails. Neurologic: No aphasia. No facial droop. No change in mentation. No head injury. No headache. No paralysis. No paresthesia. Psychiatric: No depression. No anxiety. No mood swings. Endocrine: No abnormal blood sugars. No weight change. PHYSICAL EXAMINATION Gen: This is an obese 51-year-old male. He is resting on chair and appears to be comfortable and in no acute distress. HEENT: Head is atraumatic, normocephalic. Pupils equal, round. Sclerae is anicteric. NECK: Supple. No JVD. No lymphadenopathy. No thyromegaly. LUNGS: Diminished breath sounds bilaterally. No wheezes or rhonchi. No intercostal retractions. No accessory muscle usage HEART: Regular rate and rhythm. No murmur. ABDOMEN: Soft. Bowel sounds are present. No masses. No tenderness. Generalized anasarca lower torso, hips. EXTREMITIES: 1+ pedal edema. No calf tenderness. Small wounds to the left pretibial area with serous drainage. NEUROLOGICAL: Patient is awake, alert and oriented x3. Cranial nerves 2 through 12 are grossly intact. ASSESSMENT AND PLAN 1. Acute on chronic systolic heart failure. Start patient on Lasix 40 mg IV every 12 hours, Aldactone 25 mg daily, Coreg 6.25 mg twice daily, monitor I&O, daily weights, electrolytes and renal function, cardiology consult 2. CAD, with possible cardiomyopathy, status post stent on left maximal circumflex, stent on the Veramyst intermedius performed 03/17/2022 3. Dependent edema bilateral legs on IV diuretics 4. Nonischemic, possible ischemic cardiomyopathy most likely alcoholic cardiomyopathy with previous EF of 20%. 5. Hypertensive urgency. Continue Lasix, Coreg 6.25 mg twice daily, hydral azine 100 mg 3 times daily, Aldactone. Monitor blood pressure closely. 6. Elevated troponins. Cardiology consult appreciated, patient started on heparin drip, Coreg, atorvastatin, scheduled for cardiac catheterization today. 7. History of left atrial thrombus was previously on eliquis. 8. Early cellulitis to the left lower extremity. Silvadene wrap to the left lower extremity, Mario wrap as well to the right lower extremity. 9. Acute kidney injury with Chronic kidney disease stage III. Avoid nephrotoxic agents, continue to monitor renal function 0. Alcohol abuse. 11. Possible obstructive sleep apnea. Patient would benefit from outpatient sleep study. 12. Coronary artery disease. Patient to return to the cardiac [facility] 03/17/[address] Freire. 11. GI prophylaxis. Protonix. 12. DVT prophylaxis. Lovenox. DISCHARGE PLAN Return home. Objective - Vital Signs Vital signs: Vital Signs Temp 98.0 F 03/18/22 12:06 Pulse 75 03/18/22 12:06 Resp 18 03/18/22 12:06 BP 156/99 03/18/22 12:06 Pulse Ox 95 03/18/22 12:06 Intake & Output 03/17/22 03/18/22 03/18/22 18:59 06:59 18:59 Intake Total 100 Balance 100 Weight 113.1 kg 113.1 kg Intake: IV 100 Other: Voiding Method Toilet Toilet Toilet Urinal Urinal Urinal - Constitutional General appearance: Present: cooperative, no acute distress - EENT Eyes: Present: edentulous, PERRLA, dentition normal, normal appearance - Neck Neck: Present: normal ROM - Respiratory Respiratory: bilateral: CTA, negative: diminished, dullness, rales, rhonchi - Cardiovascular Rhythm: regular Heart sounds: normal: S1, S2 Abnormal Heart Sounds: Present: systolic murmur - Peripheral edema leg Peripheral Edema: bilateral: 3+ - Integumentary Integumentary: Present: normal - Neurologic Neurologic: Present: CNII-XII intact - Musculoskeletal Musculoskeletal: Present: gait normal - Psychiatric Psychiatric: Present: A&O x's 3, appropriate affect, intact judgment & insight - Labs CBC & Chem 7: 03/16/22 07:41 03/18/22 08:11 Labs: Abnormal Lab Results - Last 24 Hours (Table) 03/18/22 Range/Units 08:11 Creatinine 1.34 H (0.66-1.25) mg/dL Glucose 157 H (74-99) mg/dL
[2022-03-18] MEDS: carvediloL 12.5 MG TAB PO SCH (17:03)
[2022-03-18] MEDS: ATORVASTATIN 80 MG TAB PO SCH (19:33)
[2022-03-18] MEDS: hydrALAZINE HCL 25 MG TAB PO PRN (19:33)
[2022-03-19] MEDS: SPIRONOLACTONE 25 MG TAB PO SCH (05:33)
[2022-03-19] MEDS: carvediloL 12.5 MG TAB PO SCH ×3 (05:34→16:40)
[2022-03-19] MEDS: hydrALAZINE HCL 25 MG TAB PO PRN (05:34)
[2022-03-19] MEDS: PANTOPRAZOLE 40 MG TABLET PO SCH (05:34)
[2022-03-19 06:35] LABS: Calcium 8.6 mg/dL (8.4-10.2); Potassium 3.9 mmol/L (3.5-5.1)
--- NOTE | 2022-03-19 08:02 | P.PN ---
Subjective Progress Note Date: 03/19/22 Principal diagnosis: Severe CAD/severe ischemic cardiomyopathy This is a pleasant 51-year-old gentleman who was admitted to the hospital with heart failure with evidence of right and left heart failure and was diagnosed with cardiomyopathy. Subsequently a heart catheterization was performed and that was right and left heart catheterization which revealed critical 2 vessel CAD with evidence of pulmonary hypertension. Subsequently the patient underwent stenting of both the left circumflex and ramus intermedius coronary arteries. He was seen this morning. He stated that he is feeling better. He stated that the shortness of breath has improved. On examination he still hypervolemic with diminished breathing sounds bilaterally and crackles in the left lung base and also bilateral lower His edema. Beside that the pressure continues to be elevated and out of control. His creatinine has been stable. I'm going to continue the current dose of Lasix IV with continued monitoring the kidney function and electrolytes and beside that increase the dose of carvedilol and also restart the patient back on Lasix which was stopped a few days ago because of acute on chronic renal failure. I advised monitoring the patient for additional 24 hours. Objective - Vital Signs Vital signs: Vital Signs Temp 98.1 F 03/19/22 04:00 Pulse 91 03/19/22 04:00 Resp 18 03/19/22 04:00 BP 186/100 03/19/22 04:00 Pulse Ox 96 03/19/22 04:00 Intake & Output 03/18/22 03/19/22 03/19/22 18:59 06:59 18:59 Intake Total 940 Output Total 1500 Balance -560 Weight 113.1 kg Intake: Oral 940 Output: Urine 1500 Other: Voiding Method Toilet Toilet Urinal Urinal - Constitutional General appearance: Present: no acute distress - Respiratory Respiratory: bilateral: rales - Cardiovascular Rhythm: regular Heart sounds: normal: S1, S2 - Labs CBC & Chem 7: 03/16/22 07:41 03/19/22 06:00 Labs: Abnormal Lab Results - Last 24 Hours (Table) 03/18/22 03/19/22 Range/Units 08:11 06:00 Carbon Dioxide 31 H (22-30) mmol/L Creatinine 1.34 H 1.43 H (0.66-1.25) mg/dL Glucose 157 H (74-99) mg/dL Assessment and Plan Assessment: Assessment #1 acute exacerbation of heart failure with reduced ejection fraction #2 severe coronary artery disease and status post PCI of the LCx and the ramus #3 severe cardiomyopathy likely to be a combination of ischemic and nonischemic #4 pulmonary hypertension, WHO group 2 #5 hypertension not well-controlled #6 obesity #7 chronic renal failure Plan #1 continue the current dose of Lasix IV #2 continue monitoring the kidney function and electrolytes #3 increase the dose of carvedilol #4 add lisinopril to the current medical regimen #5 monitor the patient for additional 24-hour
[2022-03-19] MEDS: ENOXAPARIN 40 MG/0.4 ML SYRINGE SQ SCH (08:15)
[2022-03-19] MEDS: FUROSEMIDE 10 MG/ML 4 ML VIAL IV SCH ×2 (08:15→20:40)
[2022-03-19] MEDS: lisinopriL 5 MG TAB PO SCH ×2 (08:15→20:40)
[2022-03-19] MEDS: hydrALAZINE HCL 50 MG TAB PO SCH ×3 (08:15→20:40)
[2022-03-19] MEDS: ASPIRIN 81 MG PO SCH (08:15)
[2022-03-19] MEDS: CLOPIDOGREL 75 MG TAB PO SCH (08:15)
--- NOTE | 2022-03-19 12:53 | P.PN ---
Subjective Progress Note Date: 03/19/22 HISTORY OF PRESENT ILLNESS This is a 51-year-old male patient of Dr. Nava and Dr. Valera with past medical history of hypertension, nonischemic cardiomyopathy with EF less than 2 0%, history of left atrial thrombus was previously on eliquis, chronic kidney disease stage III, history of alcohol abuse, possible obstructive sleep apnea not previously worked up. Patient has been noncompliant and has not followed up with cardiology and more than 1-1/2 years and greater than [address] Nava. Patient was previously on along with the medications including Aldactone, hydralazine, eliquis, Imdur Lasix and potassium, labetalol and Protonix. He states the only medications he is still taking his Lasix and hydralazine. Patient complains of edema in his abdomen, lower extremities for 1-1/2 weeks. He states he has been taking Lasix he thinks it's 20 mg daily and has been urinating well. He also complains of difficulty breathing with ambulation. No lightheadedness or dizziness, no palpitations, no chest pain. Patient's father is at bedside. Patient was found to be afebrile, heart rate 113, blood pressure 222/129, pulse ox 95% on room air. EKG sinus tachycardia CBC was unremarkable. INR 1.1. Electrolytes normal. BUN 17 and creatinine 1.38. Blood sugar 108. Magnesium 2.2. Liver function tests were normal. ProBNP 7940. Troponin 0.084. Albumin 3.2. Urinalysis 3+ protein. Chest x-ray reveals cardiomegaly with mild to borderline moderate interstitial and mild alveolar edema favoring CHF exacerbation or fluid overload state. Patient was started on IV Lasix and admitted to the cardiac stepdown floor and cardiology consult requested. Patient is seen today in the emergency center waiting for bed. 03/15: Patient is seen today on the cardiac stepdown unit#, patient denies having chest pain, he continues to have lower extremity and torso edema but improving. He has had good urine output. No weight recorded today. CBC is unremarkable. Repeat troponins were 0.073 and 0.099. Blood pressure remained elevated last evening patient was also started on lisinopril 40 mg daily, this morning patient was seen by cardiology and started on heparin drip, aspirin Coreg and scheduled for cardiac catheterization today. Echocardiogram reveals EF of 20-25%, severe left atrial enlargement, 3+ tricuspid regurgitation. 03/16: Cardiac catheterization was delayed because patient had rise in his creatinine to 1.6 yesterday. He is scheduled today with Dr. Freire. Repeat blood work reveals CBC unremarkable. BUN 16 and creatinine 1.4. CO2 35 otherwise electrolytes are normal. Magnesium 2.1 and potassium 4.3. Patient denies having any chest pain and no shortness of breath. He is comfortable at rest. Edema is slowly improving. Weights are inaccurate. Anticipate possible discharge in the next 24-48 hours. Discussed in detail with the patient the need for outpatient follow-up and compliance with regime and patient verbalizes understanding 03/17: Yesterday, the patient underwent cardiac catheterization with Dr. Freire that revealed ischemic cardiomyopathy with severe 2 vessel coronary artery disease. Critical CAD involving the left circumflex and ramus intermedius. Elevated left and right side filling pressures, pulmonary hypertension. Patient scheduled to return to the lab aide today for angioplasty of the 2 vessels. Patient currently denies any chest pain or shortness of breath. Lower extremity edema significantly improved. He has had good urine output and weight is down 1-1/2 kg from yesterday. Patient has been afebrile, heart rate 77, blood pressure 167/96, blood pressure 97% on room air. Electrolytes are normal with BUN of 17 and creatinine 1.45. Patient may require LifeVest, if not possible discharge on the weekend. 5: 7, patient still has significant edema no chest pain no shortness of breath, no lightheadedness no fever no chills, he lost 2 pounds, however his entry weight is 95 kg, currently weighing 113 kg, vitals are stable, creatinine is 1.3, from previous of 1.4 yesterday. Electrolytes are okay, patient does not have any lightheadedness or chills, issues eating without any difficulties. T- max of 98, pulse ox 95% on room air, systolic blood pressure between 143-158 systolic. On Coreg, IV Lasix 40 every 12, Apresoline when necessary Aldactone, patient is not on any MARIO inhibitor. POD#1, for stent left circumflex and Ramus intermedius 03/19: Patient's edema is significantly improved today, is wearing some compression socks, blood pressure has improved, from systolic 186, down to 148 and 119, still on IV diuretics, and Zestril 5 mg twice a day. Lasix at 40 mg every 12 hours, Coreg 25 twice a day, Aldactone 25 mg daily. Labs are stable, 13 and 1.43, patient does not have any lightheadedness dizziness, ambulating in the bedroom, in eating independently. Vital signs are stable, with no fever, p ulse ox 95% on room air left, and ramus intermedius REVIEW OF SYSTEMS Constitutional: No fever, no chills, no night sweats. No weakness, fatigue or lethargy. No daytime sleepiness. EENT: No headache. No blurred vision or double vision. No loss of Hearing, no ringing in the ears, no dizziness. No nasal drainage or congestion. No epistaxis. No sore throat. Lungs: Denies shortness of breath, cough, no sputum production. No wheezing. Reports dyspnea with exertion. Cardiovascular: No chest pain, reports lower extremity edema-improving. No palpitations. No paroxysmal nocturnal dyspnea. Reports reports abdominal edema. orthopnea. No lightheadedness or dizziness. No syncopal episodes. Abdominal: No abdominal pain. No nausea, vomiting. No diarrhea. No constipation. No bloody or tarry stools. No loss of appetite. Genitourinary: No dysuria, increased frequency, urgency. No urinary retention. Musculoskeletal: No myalgias. No muscle weakness, no gait dysfunction, no frequent falls. No back pain. No neck pain. Integumentary: No wounds, no lesions. No rash or pruritus. No unusual bruising. No change in hair or nails. Neurologic: No aphasia. No facial droop. No change in mentation. No head injury. No headache. No paralysis. No paresthesia. Psychiatric: No depression. No anxiety. No mood swings. Endocrine: No abnormal blood sugars. No weight change. PHYSICAL EXAMINATION Gen: This is an obese 51-year-old male. He is resting on chair and appears to be comfortable and in no acute distress. HEENT: Head is atraumatic, normocephalic. Pupils equal, round. Sclerae is anicteric. NECK: Supple. No JVD. No lymphadenopathy. No thyromegaly. LUNGS: Diminished breath sounds bilaterally. No wheezes or rhonchi. No intercostal retractions. No accessory muscle usage HEART: Regular rate and rhythm. No murmur. ABDOMEN: Soft. Bowel sounds are present. No masses. No tenderness. Generalized anasarca lower torso, hips. EXTREMITIES: 1+ pedal edema. No calf tenderness. Small wounds to the left pretibial area with serous drainage. NEUROLOGICAL: Patient is awake, alert and oriented x3. Cranial nerves 2 through 12 are grossly intact. ASSESSMENT AND PLAN 1. Acute on chronic systolic heart failure. on Lasix 40 mg IV every 12 hours, Aldactone 25 mg daily, Coreg 6.25 mg twice daily, monitor I&O, lisinopril 5 twice a day daily weights, electrolytes and renal function, cardiology consult 2. CAD, with possible cardiomyopathy, status post stent on left maximal circumflex, stent on the Veramyst intermedius performed 03/17/2022 3. Dependent edema bilateral legs on IV diuretics 40 mg Lasix twice a day 4. Nonischemic, possible ischemic cardiomyopathy most likely alcoholic cardiomyopathy with previous EF of 20%. 5. Hypertensive urgency. Continue Lasix, Coreg 6.25 mg twice daily, hydralazine 100 mg 3 times daily, Aldactone. Monitor blood pressure closely. 6. Elevated troponins. Cardiology consult appreciated, patient started on heparin drip, Coreg, atorvastatin, scheduled for cardiac catheterization today. 7. History of left atrial thrombus was previously on eliquis. 8. Early cellulitis to the left lower extremity improved. Silvadene wrap to the left lower extremity, [place] wrap as well to the right lower extremity. 9. Acute kidney injury with Chronic kidney disease stage III. Avoid nephrotoxic agents, continue to monitor renal function 0. Alcohol abuse. 11. Possible obstructive sleep apnea. Patient would benefit from outpatient s leep study. 12. Coronary artery disease. Patient to return to the cardiac lab aide 03/17/[address] Freire. 11. GI prophylaxis. Protonix. 12. DVT prophylaxis. Lovenox. DISCHARGE PLAN Return home. In the next 24-48 hrs. Objective - Vital Signs Vital signs: Vital Signs Temp 97.8 F 03/19/22 12:03 Pulse 67 03/19/22 12:03 Resp 16 03/19/22 12:03 BP 119/75 03/19/22 12:03 Pulse Ox 95 03/19/22 12:03 Intake & Output 0503/19/22 03/19/22 18:59 06:59 18:59 Intake Total 940 118 Output Total 1500 Balance -560 118 Weight 113.1 kg Intake: Oral 940 118 Output: Urine 1500 Other: Voiding Method Toilet Toilet Toilet Urinal Urinal Urinal - Labs CBC & Chem 7: 03/16/22 07:41 03/19/22 06:00 Labs: Abnormal Lab Results - Last 24 Hours (Table) 03/19/22 Range/Units 06:00 Carbon Dioxide 31 H (22-30) mmol/L Creatinine 1.43 H (0.66-1.25) mg/dL
[2022-03-19] MEDS: ATORVASTATIN 80 MG TAB PO SCH (20:40)
[2022-03-20] MEDS: carvediloL 12.5 MG TAB PO SCH (06:17)
[2022-03-20] MEDS: PANTOPRAZOLE 40 MG TABLET PO SCH (06:18)
[2022-03-20 07:14] LABS: Calcium 8.4 mg/dL (8.4-10.2); Potassium 4.1 mmol/L (3.5-5.1)
--- NOTE | 2022-03-20 08:52 | P.DS ---
Providers Date of admission: 03/14/22 11:55 Expected date of discharge: 03/20/22 Attending physician: Be Nava Consults: 03/14/22 11:57 Consult Physician Routine Consulting Provider: Lewis Valera Consult Reason/Comments: CHF, elevated troponin, hypertensive urgency Do you want consulting provider notified?: Yes 03/17/22 14:28 Consult Physician Routine Consulting Provider: [facility] Consult Reason/Comments: Post Interventional patient Do you want consulting provider notified?: Already Contacted [facility] Course: HISTORY OF PRESENT ILLNESS This is a 51-year-old male patient of Dr. Nava and Dr. Valera with past medical history of hypertension, nonischemic cardiomyopathy with EF less than 20%, history of left atrial thrombus was previously on eliquis, chronic kidney disease stage III, history of alcohol abuse, possible obstructive sleep apnea not previously worked up. Patient has been noncompliant and has not followed up with cardiology and more than 1-1/2 years and greater than [address] Nava. Patient was previously on along with the medications including Aldactone, hydralazine, eliquis, Imdur Lasix and potassium, labetalol and Protonix. He states the only medications he is still taking his Lasix and hydralazine. Patient complains of edema in his abdomen, lower extremities for 1-1/2 weeks. He states he has been taking Lasix he thinks it's 20 mg daily and has been urinating well. He also complains of difficulty breathing with ambulation. No lightheadedness or dizziness, no palpitations, no chest pain. Patient's father is at bedside. Patient was found to be afebrile, heart rate 113, blood pressure 222/129, pulse ox 95% on room air. EKG sinus tachycardia CBC was unremarkable. INR 1.1. Electrolytes normal. BUN 17 and creatinine 1.38. Blood sugar 108. Magnesium 2.2. Liver function tests were normal. ProBNP 7940. Troponin 0.084. Albumin 3.2. Urinalysis 3+ protein. Chest x-ray reveals cardiomegaly with mild to borderline moderate interstitial and mild alveolar edema favoring CHF exacerbation or fluid overload state. Patient was started on IV Lasix and admitted to the cardiac stepdown floor and cardiology consult requested. Patient is seen today in the emergency center waiting for bed. 03/15: Patient is seen today on the cardiac stepdown unit#, patient denies having chest pain, he continues to have lower extremity and torso edema but improving. He has had good urine output. No weight recorded today. CBC is unremarkable. Repeat troponins were 0.073 and 0.099. Blood pressure remained elevated last evening patient was also started on lisinopril 40 mg daily, this morning patient was seen by cardiology and started on heparin drip, aspirin Coreg and scheduled for cardiac catheterization today. Echocardiogram reveals EF of 20-25%, severe left atrial enlargement, 3+ tricuspid regurgitation. 03/16: Cardiac catheterization was delayed because patient had rise in his creatinine to 1.6 yesterday. He is scheduled today with Dr. Freire. Repeat blood work reveals CBC unremarkable. BUN 16 and creatinine 1.4. CO2 35 otherwise electrolytes are normal. Magnesium 2.1 and potassium 4.3. Patient denies having any chest pain and no shortness of breath. He is comfortable at rest. Edema is slowly improving. Weights are inaccurate. Anticipate possible discharge in the next 24-48 hours. Discussed in detail with the patient the need for outpatient follow-up and compliance with regime and patient verbalizes understanding 03/17: Yesterday, the patient underwent cardiac catheterization with Dr. Freire that revealed ischemic cardiomyopathy with severe 2 vessel coronary artery disease. Critical CAD involving the left circumflex and ramus intermedius. Elevated left and right side filling pressures, pulmonary hypertension. Patient scheduled to return to the label maker today for angioplasty of the 2 vessels. Patient currently denies any chest pain or shortness of breath. Lower extremity edema significantly improved. He has had good urine output and weight is down 1-1/2 kg from yesterday. Patient has been afebrile, heart rate 77, blood pressure 167/96, blood pressure 97% on room air. Electrolytes are normal with BUN of 17 and creatinine 1.45. Patient may require LifeVest, if not possible discharge on the weekend. 5: 7, patient still has significant edema no chest pain no shortness of breath, no lightheadedness no fever no chills, he lost 2 pounds, however his entry weight is 95 kg, currently weighing 113 kg, vitals are stable, creatinine is 1.3, from previous of 1.4 yesterday. Electrolytes are okay, patient does not have any lightheadedness or chills, issues eating without any difficulties. T- max of 98, pulse ox 95% on room air, systolic blood pressure between 143-158 systolic. On Coreg, IV Lasix 40 every 12, Apresoline when necessary Aldactone, patient is not on any DARSHAN inhibitor. POD#1, for stent left circumflex and Ramus intermedius 5/: Patient's edema is significantly improved today, is wearing some compression socks, blood pressure has improved, from systolic 186, down to 148 and 119, still on IV diuretics, and Zestril 5 mg twice a day. Lasix at 40 mg every 12 hours, Coreg 25 twice a day, Aldactone 25 mg daily. Labs are stable, 13 and 1.43, patient does not have any lightheadedness dizziness, ambulating in the bedroom, in eating independently. Vital signs are stable, with no fever, pulse ox 95% on room air /: She has had significant weight loss, improvement of lower extremity edema and respiratory status is stable. He denies having any chest pain or shortness of breath at this time. He hasn't seen and followed by cardiology and patient transition to oral Lasix, plan to continue aspirin and Plavix along with Coreg lisinopril hydralazine and spironolactone. Patient is to follow up with Dr. Freire in 1 week. Patient will be discharged home in stable condition. DISCHARGE DIAGNOSES 1. Acute on chronic systolic heart failure. 2. CAD, with possible cardiomyopathy, status post stent on left circumflex and ramus intermedius on 03/17 3. Dependent edema bilateral legs 4. Ischemic cardiomyopathy. 5. Hypertensive urgency. . 6. Elevated troponins without acute coronary syndrome. 7. History of left atrial thrombus was previously on eliquis. 8. Early cellulitis to the left lower extremity, resolved 9. Acute kidney injury with Chronic kidney disease stage III. 10. Alcohol abuse. 11. Possible obstructive sleep apnea. Patient would benefit from outpatient sleep study. 12. Coronary artery disease. DISCHARGE PLAN Home Greater than 35 minutes was utilized and coordinating patient's discharge. Impression and plan of care have been directed as dictated by the signing physician. Sun Sin nurse practitioner acting as scribe for signing physician. Patient Condition at Discharge: Serious Plan - Discharge Summary Discharge Rx Participant: Yes New Discharge Prescriptions: New Spironolactone [Aldactone] 25 mg PO DAILY #30 tab Nitroglycerin Sl Tabs [Nitrostat] 0.4 mg SUBLINGUAL Q5M PRN #25 tab PRN Reason: Chest Pain Clopidogrel [Plavix] 75 mg PO DAILY #30 tab lisinopriL [Zestril] 5 mg PO BID #60 tab Aspirin 81 mg PO DAILY carvediloL [Coreg*] 25 mg PO BID-W/MEALS #60 tab Atorvastatin [Lipitor] 80 mg PO HS #30 tab Continue hydrALAZINE HCL [Apresoline] 100 mg PO TID #90 tab Changed Furosemide [Lasix] 40 mg PO DAILY #30 tab Discontinued Neon-3 Fatty Acids/Fish Oil [Fish Oil 1,000 mg Softgel] 1 cap PO DAILY Discharge Medication List Aspirin 81 mg PO DAILY 03/20/22 [Rx] Atorvastatin [Lipitor] 80 mg PO HS #30 tab 03/20/22 [Rx] Clopidogrel [Plavix] 75 mg PO DAILY #30 tab 03/20/22 [Rx] Furosemide [Lasix] 40 mg PO DAILY #30 tab 03/20/22 [Rx] Nitroglycerin Sl Tabs [Nitrostat] 0.4 mg SUBLINGUAL Q5M PRN #25 tab 03/20/22 [Rx] Spironolactone [Aldactone] 25 mg PO DAILY #30 tab 03/20/22 [Rx] carvediloL [Coreg*] 25 mg PO BID-W/MEALS #60 tab 03/20/22 [Rx] hydrALAZINE HCL [Apresoline] 100 mg PO TID #90 tab 03/20/22 [Rx] lisinopriL [Zestril] 5 mg PO BID #60 tab 03/20/22 [Rx] Follow up Appointment(s)/Referral(s): Gordo Freire MD [STAFF PHYSICIAN] - 03/29/22 8:45 am Be Nava MD [Primary Care Provider] - 03/21/22 2:45 pm Patient Instructions/Handouts: Heart Failure (IP), Low-Sodium Diet (GEN), Heart Catheterization (GEN) Discharge Disposition: HOME SELF-CARE
[2022-03-20] MEDS: ASPIRIN 81 MG PO SCH (08:55)
[2022-03-20] MEDS: SPIRONOLACTONE 25 MG TAB PO SCH (08:55)
[2022-03-20] MEDS: CLOPIDOGREL 75 MG TAB PO SCH (08:55)
[2022-03-20] MEDS: hydrALAZINE HCL 50 MG TAB PO SCH (08:55)
[2022-03-20] MEDS: lisinopriL 5 MG TAB PO SCH (08:55)
[2022-03-20] MEDS: FUROSEMIDE 10 MG/ML 4 ML VIAL IV SCH (08:57)
[2022-03-20] MEDS: ENOXAPARIN 40 MG/0.4 ML SYRINGE SQ SCH (08:57)
[2022-03-20 09:23] VITALS: BP 126/80; PULSE 78; RESP 18; TEMP 98
--- NOTE | 2022-03-20 11:25 | P.PN ---
Subjective This is a pleasant 51-year-old male past medical history significant for hypertension, cardiomyopathy (has never undergone cardiac catheterization in the past), Non-compliance, alcohol abuse, chronic kidney disease. He used to follow with Dr. Valera, has not been seen since 2019. We have been asked to see in consultation for congestive heart failure. Presents emergency department with worsening shortness of breath with exertion for one week, increased bilateral lower extremity edema, fatigue, 30 pound weight gain in one week. He also state s she's been noncompliant with his medications. He presents in acute heart failure. Found to have an EF 20-25%. DIAGNOSTICS Echocardiogram revealed EF of 5%, moderate right atrial dilatation, severe left atrial enlargement, 3+ tricuspid regurgitation. Prior echocardiogram 04/2020 revealed an EF of less than 20%. Patient did not undergo cardiac cath at that time. On 03/16/2022 patient underwent right and left heart catheterization with Dr. Freire. Which revealed critical 2 vessel CAD with evidence of pulmonary hypertension, elevated left and right-sided filling pressures. On 03/17/2022 Patient underwent PCI of the left circumflex and ramus intermedius 03/20/2022 Patient seen and examined at bedside, no acute distress. His breathing and lower extremity edema has improved. His kidney function is stable sCr 1.41 Vital signs are stable. I/os with -444mL over the past 24 hours. He's currently maintained on aspirin 80 mg daily, Plavix 75mg daily, atorvastatin 80 mg nightly, coreg 25 mg twice a day, Lasix IV 40 mg twice a day, hydralazine 10 mg 3 times a day, lisinopril 5 mg twice a day, spironolactone 25 mg daily PHYSICAL EXAMINATION Vitals reviewed CONSTITUTIONAL: No apparent distress. HEENT: No JVD. CHEST EXAMINATION: Lungs crackles bilaterally to auscultation. No chest wall tenderness is noted on palpation or with deep breathing. HEART EXAMINATION: Regular rate and rhythm. S1, S2 heard. Systolic ejection murmur at apex. ABDOMEN: Soft, nontender. Positive bowel sounds. EXTREMITIES: 2+ peripheral pulses, 2+ bilateral lower extremity edema and no calf tenderness. NEUROLOGIC EXAMINATION: Patient is awake, alert and oriented x3. ASSESSMENT Acute heart failure with reduced ejection fraction 20-25% Coronary artery disease status post PCI left circumflex and the ramus on 03/18/2022 Ischemic Cardiomyopathy Elevated troponin Pulmonary hypertension Hypertension Alcohol use Chronic kidney disease Non-compliance with medications PLAN Transition to PO Lasix Continue dual antiplatelet therapy with Aspirin and Plavix Continue carvedilol, lisinopril, hydralazine, and spironolactone Patient is stable to be discharged from cardiology perspective. Follow up with Dr. Freire in one week Nurse practitioner note has been reviewed by physician. Signing provider agrees with the documented findings, assessment, and plan of care. Objective - Vital Signs Vital signs: Vital Signs Temp 98.4 F 03/19/22 20:40 Pulse 73 03/20/22 04:30 Resp 17 03/20/22 04:30 BP 157/85 03/20/22 04:30 Pulse Ox 96 03/20/22 04:30 Intake & Output 03/19/22 03/20/22 03/20/22 18:59 06:59 18:59 Intake Total 356 440 Output Total 800 Balance 356 -800 440 Weight 106.4 kg Intake: Oral 356 440 Output: Urine 800 Other: Voiding Method Toilet Toilet Urinal Urinal - Labs CBC & Chem 7: 03/16/22 07:41 03/20/22 05:50 Labs: Abnormal Lab Results - Last 24 Hours (Table) 03/20/22 Range/Units 05:50 Creatinine 1.41 H (0.66-1.25) mg/dL
[2022-03-21] MEDS ORDERED: FUROSEMIDE 40 MG TAB PO SCH (09:00)
== END 2022-03-20 11:50 | disposition home or self-care (01) | DRG 246 ==
LOC: EC 09:51 → 3SCARD 11:55
PROVIDERS: ADMIT Internal Medicine Geriatric Medicine; ATTEND Internal Medicine Geriatric Medicine
PROC: 4A023N8 Measurement of Cardiac Sampling and Pressure, Bilateral, Percutaneous Approach (ICD-10-PCS; 2022-03-16)
PROC: B2111ZZ Fluoroscopy of Multiple Coronary Arteries using Low Osmolar Contrast (ICD-10-PCS; 2022-03-16)
PROC: 027034Z Dilation of Coronary Artery, One Artery with Drug-eluting Intraluminal Device, Percutaneous Approach (ICD-10-PCS; principal; 2022-03-17 09:30)
DX: I13.0 Hypertensive heart and chronic kidney disease with heart failure and stage 1 through stage 4 chronic kidney disease, or unspecified chronic kidney disease (principal); I50.23 Acute on chronic systolic (congestive) heart failure; N17.9 Acute kidney failure, unspecified; L03.116 Cellulitis of left lower limb; I42.6 Alcoholic cardiomyopathy; E66.9 Obesity, unspecified; Z68.35 Body mass index [BMI] 35.0-35.9, adult; F10.20 Alcohol dependence, uncomplicated; I07.1 Rheumatic tricuspid insufficiency; I16.0 Hypertensive urgency; I25.10 Atherosclerotic heart disease of native coronary artery without angina pectoris; I25.5 Ischemic cardiomyopathy; I27.22 Pulmonary hypertension due to left heart disease; N18.30 Chronic kidney disease, stage 3 unspecified; Z79.02 Long term (current) use of antithrombotics/antiplatelets; Z79.82 Long term (current) use of aspirin; Z79.899 Other long term (current) drug therapy; Z87.891 Personal history of nicotine dependence; Z91.14 Patient's other noncompliance with medication regimen; Z91.19 Patient's noncompliance with other medical treatment and regimen; R77.8 Other specified abnormalities of plasma proteins; R00.0 Tachycardia, unspecified
CPT/HCPCS: 36415; 71046; 80048; 80053; 81001; 83690; 83735; 83880; 84484; 85025; 85027; 85610; 85730; 93005; 93306; 93460; 96374; 99285

== ENCOUNTER 2024-07-27 11:56 | Inpatient (IN) | payer BC ==
--- NOTE | 2024-07-27 12:30 | ED ---
Recheck HPI - General Source: patient, RN notes reviewed Mode of arrival: ambulatory Limitations: no limitations <Ramona Araujo - Last Filed: 07/27/24 12:29> <Adams Donovan - Last Filed: 08/05/24 09:00> - General Chief Complaint: Recheck/Abnormal Lab/Rx Stated Complaint: Himanshu leg swelling Time Seen by Provider: 07/27/24 12:20 - History of Present Illness Initial Comments: Quick Note: This is a 54-year-old male who presents to the emergency department for lower extremity swelling. Patient has a history of CHF and hypertension and has not taken his meds for the last couple of months. States that he ran out of them and has missed several doctors appointments. Reports increased swelling in his lower extremities as well as shortness of breath. Denies any chest pain at this time. Additionally, he has noticed redness around the right lower extremity for the last couple of days. Denies any fevers or chills. (Ramona Araujo) Agree with above (Adams Donovan) - Related Data Previous Rx's Medication Instructions Recorded Sacubitril/Valsartan [Entresto 24 0.5 each PO BID #60 tab 07/31/24 mg-26 mg Tablet] Aspirin 81 mg PO DAILY tab 08/01/24 Atorvastatin [Lipitor] 40 mg PO HS #30 tab 08/01/24 Clopidogrel [Plavix] 75 mg PO DAILY #30 tab 08/01/24 Doxycycline Hyclate 100 mg PO AC-BID #20 capsule 08/01/24 Folic Acid 1 mg PO DAILY #60 tab 08/01/24 Furosemide [Lasix] 40 mg PO BID #60 tab 08/01/24 SILVER sulfADIAZINE CREAM 1 applic TOPICAL BID #100 cm 08/01/24 [Silvadene Cream] Spironolactone [Aldactone] 25 mg PO DAILY #30 tab 08/01/24 Thiamine [Vitamin B-1] 100 mg PO DAILY #60 tab 08/01/24 carvediloL [Coreg*] 25 mg PO BID-W/MEALS #60 tab 08/01/24 hydrALAZINE HCL [Apresoline] 50 mg PO TID #90 tab 08/01/24 metOLazone [Zaroxolyn] 2.5 mg PO DAILY #30 tab 08/01/24 Allergies Allergy/AdvReac Type Severity Reaction Status Date / Time warfarin [From Coumadin] Allergy Swelling Verified 07/27/24 17:39 Review of Systems ROS Other: All systems not noted in ROS Statement are negative. <Ramona Araujo - Last Filed: 07/27/24 12:29> ROS Other: All systems not noted in ROS Statement are negative. <Adams Donovan - Last Filed: 08/05/24 09:00> ROS Statement: Those systems with pertinent positive or pertinent negative responses have been documented in the HPI. Past Medical History Past Medical History: Heart Failure, Hypertension Additional Past Medical History / Comment(s): (L) Ventrical blood clot 3.5 year ago History of Any Multi-Drug Resistant Organisms: None Reported Past Surgical History: Orthopedic Surgery Additional Past Surgical History / Comment(s): toe and arm surgery Past Anesthesia/Blood Transfusion Reactions: No Reported Reaction Past Psychological History: No Psychological Hx Reported Smoking Status: Never smoker Past Alcohol Use History: Occasional Past Drug Use History: None Reported - Past Family History Mother History Unknown: Yes Father History Unknown: Yes <Ramona Araujo - Last Filed: 07/27/24 12:29> General Exam Limitations: no limitations <Ramona Araujo - Last Filed: 07/27/24 12:29> Limitations: no limitations General appearance: alert Head exam: Present: atraumatic, normocephalic Eye exam: Present: normal appearance. Absent: scleral icterus, conjunctival injection Neck exam: Present: normal inspection, full ROM Respiratory exam: Present: rales (Crackles at bases bilaterally). Absent: respiratory distress, wheezes, rhonchi, stridor, accessory muscle use Cardiovascular Exam: Present: regular rate, normal rhythm, normal heart sounds. Absent: systolic murmur, diastolic murmur, rubs, gallop GI/Abdominal exam: Present: soft. Absent: distended, tenderness, guarding, rebound, rigid, mass, pulsatile mass, hernia Extremities exam: Present: normal inspection, normal capillary refill, pedal edema. Absent: calf tenderness Back exam: Present: normal inspection. Absent: CVA tenderness (R), CVA te nderness (L) Neurological exam: Present: alert Skin exam: Present: warm, dry, intact, normal color. Absent: rash <Adams Donovan - Last Filed: 08/05/24 09:00> - General Exam Comments Initial Comments: Visual Physical Exam Vital signs reviewed General: Well-appearing, nontoxic, no acute distress. Head: Normocephalic, atraumatic Eyes: PERRLA, EOMI ENT: Airway patent Chest: Nonlabored breathing Skin: No visual rash, normal skin tone Neuro: Alert and oriented 3 Musculoskeletal: No gross abnormalities (VogleyMimiRamona) Course Vital Signs 07/27/24 07/27/24 07/27/24 12:06 15:11 16:10 Temperature 98 F Pulse Rate 100 99 92 Pulse Rate [ Pulse Oximetery ] Respiratory 16 18 16 Rate Blood Pressure 177/133 156/116 155/130 Blood Pressure [Right Arm] O2 Sat by Pulse 98 Oximetry 07/27/24 07/27/24 07/28/24 17:21 22:39 01:00 Temperature Pulse Rate 91 59 L 58 L Pulse Rate [ Pulse Oximetery ] Respiratory 16 16 18 Rate Blood Pressure 154/110 106/71 104/63 Blood Pressure [Right Arm] O2 Sat by Pulse 95 97 Oximetry 07/28/24 07/28/24 07/28/24 04:00 07:04 07:53 Temperature 98.4 F Pulse Rate 65 63 61 Pulse Rate [ Pulse Oximetery ] Respiratory 19 19 18 Rate Blood Pressure 124/82 143/98 139/94 Blood Pressure [Right Arm] O2 Sat by Pulse 95 98 98 Oximetry 07/28/24 07/28/24 07/28/24 10:00 11:13 12:18 Temperature 97.6 F 97.6 F Pulse Rate 60 56 L 57 L Pulse Rate [ Pulse Oximetery ] Respiratory 16 18 18 Rate Blood Pressure 102/58 115/72 115/70 Blood Pressure [Right Arm] O2 Sat by Pulse 95 98 98 Oximetry 07/28/24 07/28/24 07/28/24 14:01 15:15 16:22 Temperature 97.7 F Pulse Rate 57 L 58 L 55 L Pulse Rate [ Pulse Oximetery ] Respiratory 18 18 18 Rate Blood Pressure 103/58 108/62 100/55 Blood Pressure [Right Arm] O2 Sat by Pulse 98 99 99 Oximetry 07/28/24 07/28/24 17:33 18:00 Temperature 97.5 F L Pulse Rate 60 Pulse Rate [ 66 Pulse Oximetery ] Respiratory 18 16 Rate Blood Pressure 106/50 Blood Pressure 127/74 [Right Arm] O2 Sat by Pulse 96 97 Oximetry Medical Decision Making <Ramona Araujo - Last Filed: 07/27/24 12:29> - Lab Data Result diagrams: 08/01/24 07:46 08/01/24 07:46 - EKG Data -: EKG Interpreted by Me EKG shows normal: sinus rhythm, axis (Left axis deviation), intervals (OK interval 195 ms, normal. QRS duration 182 ms(prolonged consistent with left bundle branch block). QTc 454 ms, normal. ), QRS complexes (Left bundle branch block) Rate: normal (84 bpm) <Adams Donovan - Last Filed: 08/05/24 09:00> - Medical Decision Making I performed the QuickNote portion of this chart. Signed Ramona Araujo PA-C. (Ramona Araujo) Patient is a 54-year-old man presenting with poorly controlled hypertension and congestive heart failure exacerbation. Patient also does appear to have a degree of cellulitis to the right lower extremity. Patient will be admitted for further management as well as cardiology consultation. Case discussed with admitting physician and treatment recommendations are incorporated. The patient had chest x-ray that I interpreted as negative for infiltrate, pneumothorax. There is cardiomegaly and congestion consistent with CHF Was pt. sent in by a medical professional or institution ([facility], ROCK WOOL INSULATOR, urgent care, hospital, or retirement...) When possible be specific @ -[No] Did you speak to anyone other than the patient for history (EMS, parent, family, police, friend...)? What history was obtained from this source @ -[No] Did you review nursing and triage notes (agree or disagree)? Why? @ -[I reviewed and agree with nursing and triage notes] Were old charts reviewed (outside hosp., previous admission, EMS record, old EKG, old radiological studies, urgent care reports/EKG's, retirement records)? Report findings @ -[No old charts were reviewed] Differential Diagnosis (chest pain, altered mental status, abdominal pain women, abdominal pain men, vaginal bleeding, weakness, fever, dyspnea, syncope, headache, dizziness, GI bleed, back pain, seizure, CVA, palpatations, mental health, musculoskeletal)? @ -[Differential Dyspnea: Coronary syndrome, arrhythmia, tamponade, asthma, COPD, pulmonary embolism, p neumonia, pneumothorax, pulmonary effusion, anaphylaxis, diabetic ketoacidosis, flailed chest, pulmonary contusion, diaphragmatic rupture, anemia, neuromuscular, this is not meant to be an all-inclusive list. EKG interpreted by me (3pts min.). @ -[I interpreted as above] X-rays interpreted by me (1pt min.). @ -[I interpreted as above CT interpreted by me (1pt min.). @ -[None done] U/S interpreted by me (1pt. min.). @ -[None done] What testing was considered but not performed or refused? (CT, X-rays, U/S, labs)? Why? @ -[None] What meds were considered but not given or refused? Why? @ -[None] Did you discuss the management of the patient with other professionals (professionals i.e. , PA, ROCK WOOL INSULATOR, lab, RT, psych nurse, social worker clinical, inner tube tuber machine operator, teacher, operational intelligence officer, mental health case manager)? Give summary @ -[Case discussed with admitting physician and treatment recommendations incorporated Was smoking cessation discussed for >3mins.? @ -[No] Was critical care preformed (if so, how long)? @ -[No] Were there social determinants of health that impacted care today? How? (Homelessness, low income, unemployed, alcoholism, drug addiction, transportation, low edu. Level, literacy, decrease access to med. care, snf, rehab)? @ -[No] Was there de-escalation of care discussed even if they declined (Discuss DNR or withdrawal of care, Hospice)? DNR status @ -[No] What co-morbidities impacted this encounter? (DM, HTN, Smoking, COPD, CAD, Cancer, CVA, ARF, Chemo, Hep., AIDS, mental health diagnosis, sleep apnea, morbid obesity)? @ -[None] Was patient admitted / discharged? Hospital course, mention meds given and route, prescriptions, significant lab abnormalities, going to OR and other p ertinent info. @ -[As above Undiagnosed new problem with uncertain prognosis? @ -[No] Drug Therapy requiring intensive monitoring for toxicity (Heparin, Nitro, Insulin, Cardizem)? @ -[No] Were any procedures done? @ -[No] Diagnosis/symptom? @ -[Acute on chronic hypertension Acute exacerbation of congestive heart failure Lower extremity cellulitis Acute kidney injury Elevated transaminase levels Elevated troponin probably due to congestive heart failure Acute, or Chronic, or Acute on Chronic? @ -[Acute on chronic hypertension Uncomplicated (without systemic symptoms) or Complicated (systemic symptoms)? @ -[Complicated by congestive heart failure Side effects of treatment? @ -[No] Exacerbation, Progression, or Severe Exacerbation? @ -[Exacerbation of congestive heart failure Poses a threat to life or bodily function? How? (Chest pain, [place], PR, pneumonia, PE, COPD, DKA, ARF, appy, cholecystitis, CVA, Diverticulitis, Homicidal, Suicidal, threat to staff... and all critical care pts) @ -[Yes (Adams Donovan) - Lab Data Lab Results 07/27/24 07/27/24 07/27/24 Range/Units 12:27 12:27 12:27 WBC 7.9 (3.8-10.6) k/uL RBC 4.40 (4.30-5.90) m/uL Hgb 13.6 (13.0-17.5) gm/dL Hct 44.0 (39.0-53.0) % MCV 100.2 H (80.0-100.0) fL MCH 31.0 (25.0-35.0) pg MCHC 30.9 L (31.0-37.0) g/dL RDW 15.0 (11.5-15.5) % Plt Count 300 (150-450) k/uL MPV 8.5 Neutrophils % 85 % Lymphocytes % 7 % Monocytes % 6 % Eosinophils % 1 % Basophils % 0 % Neutrophils # 6.7 (1.3-7.7) k/uL Lymphocytes # 0.6 L (1.0-4.8) k/uL Monocytes # 0.5 (0-1.0) k/uL Eosinophils # 0.1 (0-0.7) k/uL Basophils # 0.0 (0-0.2) k/uL Hypochromasia Moderate Macrocytosis Slight ESR 15 (0-20) mm/Hr PT 12.4 (10.0-12.5) sec INR 1.2 H (<1.2) APTT 25.5 (22.0-30.0) sec Sodium 132 L (137-145) mmol/L Potassium 4.4 (3.5-5.1) mmol/L Chloride 104 (98-107) mmol/L Carbon Dioxide 19 L (22-30) mmol/L Anion Gap 9 mmol/L BUN 54 H (9-20) mg/dL Creatinine 2.26 H (0.66-1.25) mg/dL Est GFR (CKD-EPI)AfAm 37 (>60 ml/min/1.73 sqM) Est GFR (CKD-EPI)NonAf 32 (>60 ml/min/1.73 sqM) Glucose 126 H (74-99) mg/dL Plasma Lactic Acid Vega (0.7-2.0) mmol/L Calcium 9.1 (8.4-10.2) mg/dL Total Bilirubin 1.5 H (0.2-1.3) mg/dL AST 160 H (17-59) U/L ALT 245 H (4-49) U/L Alkaline Phosphatase 139 H (38-126) U/L Troponin I (0.000-0.034) ng/mL C-Reactive Protein 1.4 H (<1.0) mg/dL NT-Pro-B Natriuret Pep 16728 pg/mL Total Protein 6.1 L (6.3-8.2) g/dL Albumin 3.5 (3.5-5.0) g/dL 07/27/24 07/27/24 Range/Units 12:27 12:27 WBC (3.8-10.6) k/uL RBC (4.30-5.90) m/uL Hgb (13.0-17.5) gm/dL Hct (39.0-53.0) % MCV (80.0-100.0) fL MCH (25.0-35.0) pg MCHC (31.0-37.0) g/dL RDW (11.5-15.5) % Plt Count (150-450) k/uL MPV Neutrophils % % Lymphocytes % % Monocytes % % Eosinophils % % Basophils % % Neutrophils # (1.3-7.7) k/uL Lymphocytes # (1.0-4.8) k/uL Monocytes # (0-1.0) k/uL Eosinophils # (0-0.7) k/uL Basophils # (0-0.2) k/uL Hypochromasia Macrocytosis ESR (0-20) mm/Hr PT (10.0-12.5) sec INR (<1.2) APTT (22.0-30.0) sec Sodium (137-145) mmol/L Potassium (3.5-5.1) mmol/L Chloride (98-107) mmol/L Carbon Dioxide (22-30) mmol/L Anion Gap mmol/L BUN (9-20) mg/dL Creatinine (0.66-1.25) mg/dL Est GFR (CKD-EPI)AfAm (>60 ml/min/1.73 sqM) Est GFR (CKD-EPI)NonAf (>60 ml/min/1.73 sqM) Glucose (74-99) mg/dL Plasma Lactic Acid Vega 1.2 (0.7-2.0) mmol/L Calcium (8.4-10.2) mg/dL Total Bilirubin (0.2-1.3) mg/dL AST (17-59) U/L ALT (4-49) U/L Alkaline Phosphatase (38-126) U/L Troponin I 0.149 H* (0.000-0.034) ng/mL C-Reactive Protein (<1.0) mg/dL NT-Pro-B Natriuret Pep pg/mL Total Protein (6.3-8.2) g/dL Albumin (3.5-5.0) g/dL Disposition <Ramona Araujo - Last Filed: 07/27/24 12:29> Is patient prescribed a controlled substance at d/c from ED?: No <Adams Donovan - Last Filed: 08/05/24 09:00> Clinical Impression: Elevated troponin, Acute exacerbation of CHF (congestive heart failure), Hypertension, Cellulitis, Acute on chronic renal failure Disposition: ADMITTED IP TO THIS HOSP Condition: Fair
--- NOTE | 2024-07-27 13:22 | XR ---
EXAMINATION TYPE: XR chest 2V, XR tibia fibula 2 views RT DATE OF EXAM: 07/27/2024 COMPARISON: 03/14/2022 chest HISTORY: 54 year-old male shortness of breath, difficulty in breathing. Right leg swelling, infection FINDINGS: Chest: Heart moderately enlarged. Diffuse interstitial densities. Developing patchy opacity at the right low er lung. No sizable pleural effusion. Right tibia/fibula: There is generalized soft tissue swelling throughout the visualized right leg. No periostitis or oste olysis. No acute fracture seen. Both knee and ankle articulations appear grossly intact. IMPRESSION: 1. Chest: Moderate cardiomegaly. Interstitial densities persist. Developing patchy opacity right lowe r lung. Consider sequela of CHF. 2. Right tibia/fibula: Generalized soft tissue swelling. No acute osseous abnormality seen. [facility], , 07/27/2024 1:19 PM
[2024-07-27 13:58] LABS: Basophils % (A) 0 %; Eosinophils # (A) 0.1 k/uL (0-0.7); Eosinophils % (A) 1 %; HGB 13.6 gm/dL (13.0-17.5); Hypochromasia Moderate; Lymphocytes # (A) 0.6 k/uL (1.0-4.8); Lymphocytes % (A) 7 %; MCHC 30.9 g/dL (31.0-37.0); MCV 100.2 fL (80.0-100.0); Macrocytosis Slight; Mean Platelet Volume 8.5; Monocytes # (A) 0.5 k/uL (0-1.0); Monocytes % (A) 6 %; Neutrophils # (A) 6.7 k/uL (1.3-7.7); Neutrophils % (A) 85 %; Platelet Count 300 k/uL (150-450); WBC 7.9 k/uL (3.8-10.6)
[2024-07-27 14:11] LABS: INR 1.2 (<1.2); Partial Thromboplastin Time 25.5 sec (22.0-30.0); Prothrombin Time 12.4 sec (10.0-12.5)
[2024-07-27 14:13] LABS: ALT 245 U/L (4-49); AST 160 U/L (17-59); African American GFR (CKD) 37 (>60 ml/min/1.73 sqM); Albumin 3.5 g/dL (3.5-5.0); Alkaline Phosphatase 139 U/L (38-126); Anion Gap 9 mmol/L; Blood Urea Nitrogen 54 mg/dL (9-20); C Reactive Protein 1.4 mg/dL (<1.0); Calcium 9.1 mg/dL (8.4-10.2); Carbon Dioxide 19 mmol/L (22-30); Chloride 104 mmol/L (98-107); Glucose 126 mg/dL (74-99); Non-African American GFR(CKD) 32 (>60 ml/min/1.73 sqM); Potassium 4.4 mmol/L (3.5-5.1); Sodium 132 mmol/L (137-145); Total Bilirubin 1.5 mg/dL (0.2-1.3); Total Protein 6.1 g/dL (6.3-8.2)
[2024-07-27 14:19] LABS: NT-Pro-B-Type Natriuretic Pept 26200 pg/mL
[2024-07-27] MEDS: ASPIRIN 81 MG PO STA (15:59)
[2024-07-27] MEDS: FUROSEMIDE 40 MG TAB PO STA (16:00)
[2024-07-27] MEDS: lisinopriL 5 MG TAB PO STA (16:01)
[2024-07-27] MEDS: carvediloL 12.5 MG TAB PO STA (16:01)
[2024-07-27] MEDS: HYDROcodone/APAP 5-325MG 1 EACH TAB PO STA (16:08)
[2024-07-27] MEDS: NITROGLYCERIN OINT 1 INCH/GM PACKET TOPICAL STA (17:24)
[2024-07-27] MEDS: SULFAMETHOX-TMP 800-160MG 1 EACH TAB PO STA (17:25)
[2024-07-27] MEDS: carvediloL 12.5 MG TAB PO SCH (18:32)
[2024-07-27] MEDS: ATORVASTATIN 80 MG TAB PO SCH (20:40)
[2024-07-27] MEDS ORDERED: lisinopriL 5 MG TAB PO SCH (21:00)
[2024-07-27] MEDS: hydrALAZINE HCL 50 MG TAB PO SCH (21:24)
[2024-07-27 22:56] LABS: Erythrocyte Sedimentation Rate 15 mm/Hr (0-20)
[2024-07-27] MEDS: FUROSEMIDE 10 MG/ML 4 ML VIAL IV SCH (23:57)
[2024-07-28] MEDS: ASPIRIN 81 MG PO SCH (07:54)
[2024-07-28] MEDS: SPIRONOLACTONE 25 MG TAB PO SCH (07:55)
[2024-07-28] MEDS: SULFAMETHOX-TMP 800-160MG 1 EACH TAB PO SCH (07:55)
[2024-07-28] MEDS: CLOPIDOGREL 75 MG TAB PO SCH (07:55)
[2024-07-28 09:30] LABS: Magnesium 2.1 mg/dL (1.6-2.3)
[2024-07-28 11:22] LABS: Appearance,Urine Clear (Clear); Bilirubin,Urine Negative (Negative); Blood,Urine Negative (Negative); Color,Urine Light Yellow; Glucose,Urine (UA) Negative (Negative); Ketones,Urine Negative (Negative); Leukocyte Esterase,Urine Negative (Negative); Nitrite,Urine Negative (Negative); Protein,Urine Trace (Negative); Specific Gravity,Urine 1.008 (1.001-1.035); Urobilinogen,Urine <2.0 mg/dL (<2.0)
--- NOTE | 2024-07-28 12:32 | P.NPCON ---
History of Present Illness - History of Present Illness patient is a 54-year-old male who was admitted to the hospital with complaints of increased lower extremity swelling and shortness of breath. Patient has a history of CHF and hypertension.there is underlying history of chronic kidney disease with baseline creatinine around 1.3-1.4 mg/dL with a base episodes of acute kidney injury. Serum creatinine was 2.2 on admission. Patient denies any urinary symptoms. He states that he has been compliant with his medications. Patient also noticed increased redness office right lower extremity recently. No history of fever. He has been started on Bactrim. Review of Systems as per HPI Past Medical History Past Medical History: Heart Failure, Hypertension Additional Past Medical History / Comment(s): (L) Ventrical blood clot 3.5 year ago History of Any Multi-Drug Resistant Organisms: None Reported Past Surgical History: Orthopedic Surgery Additional Past Surgical History / Comment(s): toe and arm surgery Past Anesthesia/Blood Transfusion Reactions: No Reported Reaction Past Psychological History: No Psychological Hx Reported Smoking Status: Never smoker Past Alcohol Use History: Occasional Past Drug Use History: None Reported - Past Family History Mother History Unknown: Yes Father History Unknown: Yes Medications and Allergies Home Medications Medication Instructions Recorded Confirmed Type Atorvastatin [Lipitor] 80 mg PO HS #30 tab 03/20/22 07/27/24 Rx Furosemide [Lasix] 40 mg PO DAILY #30 tab 03/20/22 07/27/24 Rx Spironolactone [Aldactone] 25 mg PO DAILY #30 tab 03/20/22 07/27/24 Rx Allergies Allergy/AdvReac Type Severity Reaction Status Date / Time warfarin [From Coumadin] Allergy Swelling Verified 07/27/24 17:39 Physical Exam Vitals: Vital Signs Temp Pulse Resp BP Pulse Ox 07/28/24 12:18 97.6 F 57 L 18 115/70 98 07/28/24 11:13 56 L 18 115/72 98 07/28/24 10:00 97.6 F 60 16 102/58 95 07/28/24 07:53 98.4 F 61 18 139/94 98 07/28/24 07:04 63 19 143/98 98 07/28/24 04:00 65 19 124/82 95 07/28/24 01:00 58 L 18 104/63 97 07/27/24 22:39 59 L 16 106/71 95 09/15/24 17:21 91 16 154/110 07/27/24 16:10 92 16 155/130 07/27/24 15:11 99 18 156/116 patient is awake, comfortable, no acute distress. Examination of the heart S1 and S2 Examination of the lungs bilateral breath sounds are heard with decreased breath sounds at the bases Abdomen is soft nontender Examination lower extremity shows 3-4+ edema with significant erythema of the skin noted in the right leg. MEMORIAL MARKER DESIGNER exam grossly intact Results - Lab Results Most recent lab results Calcium 9.1 mg/dL (8.4-10.2) 07/27/24 12:27 Magnesium 2.1 mg/dL (1.6-2.3) 07/28/24 08:55 07/27/24 12:27 07/27/24 12:27 Assessment and Plan Assessment: 1. Acute kidney injury, cardiorenal. Maintained on IV Lasix. No significant hypotension noted. UA is benign with trace protein 2. Cardiomyopathy with EF of 20-25% on echocardiogram in 2021 3. Chronic kidney disease NKF stage IIIa with baseline creatinine about 1.3-1.4 mg/dL 4. Volume overload 5. Right lower extremity cellulitis maintained on Bactrim, started in ER Plan: continue IV Lasix. Recommend to avoid Bactrim given the acute kidney injury. Consider switching to IV cefazolin Repeat labs in a.m. Thank you for the consultation. We will continue to follow the patient with you during his hospitalization.
[2024-07-28] MEDS: FUROSEMIDE 10 MG/ML 4 ML VIAL IV SCH (15:18)
--- NOTE | 2024-07-28 17:59 | P.CRDCN ---
History of Present Illness Consult date: 07/28/24 Consult reason: congestive heart failure (CHF exacerbation) History of present illness: HISTORY OF PRESENT ILLNESS: This is a 54-year-old male with past medical history of congestive heart failure, coronary artery disease, cardiomyopathy history of alcohol abuse, hypertension, hyperlipidemia, chronic kidney disease, and cellulitis.Patient has seen Dr. Valera in the office before, but has not followed up recently. We have been asked to see the patient in consultation for CHF exacerbation. Patient was examined at the bedside in the emergency room. Patient came to the hospital due to increased swelling in the legs and shortness of breath. He also states there has been increased redness in his right lower extremity. He denied chest pain, fevers chills. DIAGNOSTICS: -EKG shows sinus rhythm albeit not a great strip -Chest x-ray shows moderate cardiomegaly and patchy opacity in the right lower lung. -Laboratory data: INR 1.2. Sodium 132. Bicarb 19. BUN 54. Creatinine 2.26. GFR 32. Glucose 126. Bilirubin 1.5. AST 160. ALT 245. ALP 139. Troponins 0.149, 0.151. CRP 1.4. NT proBNP 26,200 down to 14,600. -Current home cardiac medications include spironolactone 25 mg, Lasix 40 mg daily, Lipitor 80 mg daily -Most recent echo in June 2022 showed EF 55 to 60%, grade 2 diastolic dysfunction, mild LVH REVIEW OF SYSTEMS: At the time of my exam CONSTITUTIONAL: Denies fever or chills. HEENT: Denies blurred vision, vision changes, or eye pain. Denies hemoptysis CARDIOVASCULAR: Denies chest pain. Denies orthopnea. Denies PND. Denies palpitations RESPIRATORY: Endorses shortness of breath, but states improved. GASTROINTESTINAL: Denies abdominal pain. Denies nausea or vomiting. HEMATOLOGIC: Denies bleeding disorders. GENITOURINARY: Denies any blood in urine. SKIN: Denies pruritus. PHYSICAL EXAM: VITAL SIGNS: Reviewed. GENERAL: Well-developed in no acute distress. HEENT: Head is normocephalic. Pupils are equal, round. Sclerae anicteric. Mucous membranes of the mouth are moist. Neck supple. No JVD or thyromegaly LUNGS: Respirations even and unlabored. Some crackles bilaterally. HEART: Regular rate and rhythm. S1 and S2 heard. ABDOMEN: Soft. Nontender to palpation. EXTREMITIES: Normal range of motion. No clubbing or cyanosis. Peripheral pulses intact. 3-4+ pitting edema up to knee, 2+ pitting above the knee bilaterally. Notable cellulitis in right lower extremity NEUROLOGIC: Awake and alert. Oriented x 3. ASSESSMENT: Acute CHF exacerbation CAD status post stent placement in proximal LCx and ramus intermedius in March 2022 Cardiomyopathy Hypertension Dyslipidemia Chronic kidney disease History of alcohol abuse Macrocytosis, transaminitis likely secondary to above Cellulitis PLAN: Follow-up on echocardiogram Discontinued Aldactone Started Lasix 60mg IV BID Started Asprin 81mg Started Plavix 75mg Continue Coreg & Hydralazine Follow up A1c, TSH Nephrology on board Monitor WAI, daily weights, electrolytes and renal function Further recommendations to follow based upon clinical course Thank you kindly for this consultation. Dr. Pearson's addendum I agree with the above documentation Acute HFrEF exacerbation, likely due to medication and diet noncompliance Prior history of cardiomyopathy Per history of CAD status post PCI Right lower extremity cellulitis Other multiple comorbidities as mentioned above Plan Obtain an updated echocardiogram. Plan is to diurese the patient while monitoring the electrolytes and renal function. Continue above mentioned medications. If patient's echocardiogram showed worsening cardiomyopathy, may consider repeat ischemic evaluation. Will also intensify guideline directed medical therapy. Past Medical History Past Medical History: Heart Failure, Hypertension Additional Past Medical History / Comment(s): (L) Ventrical blood clot 3.5 year ago History of Any Multi-Drug Resistant Organisms: None Reported Past Surgical History: Orthopedic Surgery Additional Past Surgical History / Comment(s): toe and arm surgery Past Anesthesia/Blood Transfusion Reactions: No Reported Reaction Past Psychological History: No Psychological Hx Reported Smoking Status: Never smoker Past Alcohol Use History: Occasional Past Drug Use History: None Reported - Past Family History Mother History Unknown: Yes Father History Unknown: Yes Medications and Allergies Home Medications Medication Instructions Recorded Confirmed Type Atorvastatin [Lipitor] 80 mg PO HS #30 tab 03/20/22 07/27/24 Rx Furosemide [Lasix] 40 mg PO DAILY #30 tab 03/20/22 07/27/24 Rx Spironolactone [Aldactone] 25 mg PO DAILY #30 tab 03/20/22 07/27/24 Rx Allergies Allergy/AdvReac Type Severity Reaction Status Date / Time warfarin [From Coumadin] Allergy Swelling Verified 07/27/24 17:39 Physical Exam Vitals: Vital Signs Temp Pulse Resp BP Pulse Ox 07/28/24 16:22 55 L 18 100/55 99 07/28/24 15:15 58 L 18 108/62 99 07/28/24 14:01 97.7 F 57 L 18 103/58 98 07/28/24 12:18 97.6 F 57 L 18 115/70 98 07/28/24 11:13 56 L 18 115/72 98 07/28/24 10:00 97.6 F 60 16 102/58 95 07/28/24 07:53 98.4 F 61 18 139/94 98 07/28/24 07:04 63 19 143/98 98 07/28/24 04:00 65 19 124/82 95 07/28/24 01:00 58 L 18 104/63 97 07/27/24 22:39 59 L 16 106/71 95 Results 07/27/24 12:27 07/27/24 12:27 Cardiac Enzymes 07/27/24 Range/Units 17:29 Troponin I 0.151 H* (0.000-0.034) ng/mL Current Medications Generic Name Dose Route Start Last Admin Trade Name Freq PRN Reason Stop Dose Admin Aspirin 81 mg 07/28/24 09:00 07/28/24 07:54 Aspirin 81 Mg PO 81 mg DAILY JEEVAN Administration Atorvastatin Calcium 80 mg 07/27/24 21:00 07/27/24 20:40 Atorvastatin 80 Mg Tab PO 80 mg HS [facility] Administration Carvedilol 25 mg 07/27/24 17:30 07/28/24 07:53 Carvedilol 12.5 Mg Tab PO 25 mg BID-W/MEALS JEEVAN Administration Clopidogrel Bisulfate 75 mg 07/28/24 09:00 07/28/24 07:55 Clopidogrel 75 Mg Tab PO 75 mg DAILY [facility] Administration Furosemide 60 mg 07/28/24 21:00 07/28/24 15:18 Furosemide 10 Mg/Ml 4 Ml Vial IV 60 mg BID [facility] Administration Hydralazine HCl 100 mg 07/27/24 22:00 07/28/24 15:17 Hydralazine Hcl 50 Mg Tab PO 100 mg TID [facility] Administration Nitroglycerin 1 inch 07/28/24 18:00 Nitroglycerin Oint 1 Inch/Gm Packet TOPICAL QID JEEVAN Sodium Chloride 10 ml 07/27/24 21:00 07/28/24 07:55 Sodium Chloride 0.9% Flush 10 Ml Syringe IV 10 ml BID JEEVAN Administration Trimethoprim/Sulfamethoxazole 1 each 07/28/24 09:00 07/28/24 07:55 Sulfamethox-Tmp 800-160mg 1 Each Tab PO 1 each Q12HR JEEVAN Administration Protocol 07/27/24 12:27 07/27/24 12:27
[2024-07-28] MEDS: NITROGLYCERIN OINT 1 INCH/GM PACKET TOPICAL SCH (18:20)
--- NOTE | 2024-07-28 18:30 | CA ---
Transthoracic Echo Report Name: Rolando Cruz Age: 54 Gender: M : 1970 Exam Date: 07/28/2024 14:39 Exam Location: [facility] Ht (in): 68 Wt (lb): 248 Ordering Physician: Allison Agarwal MD Attending/Referring Phys: Technical Coordinator Rita Flannery RDCS Procedure CPT: Indications: LV function Cardiac Hx: CHF Technical Quality: Fair Contrast 1: Definity Total Dose (mL): 2 Contrast 2: Total Dose (mL): MEASUREMENTS (Male / Female) Normal Values 2D ECHO LV Diastolic Diameter PLAX 6.7 cm 4.2 - 5.9 / 3.9 - 5.3 cm LV Systolic Diameter PLAX 5.4 cm IVS Diastolic Thickness 1.4 cm 0.6 - 1.0 / 0.6 - 0.9 cm LVPW Diastolic Thickness 1.2 cm 0.6 - 1.0 / 0.6 - 0.9 cm LV Relative Wall Thickness 0.4 RV Internal Dim ED PLAX 2.5 cm LA Systolic Diameter LX 5.2 cm 3.0 - 4.0 / 2.7 - 3.8 cm LV Diastolic Volume MOD BP 185.6 cm??? 67 - 155 / 56 - 104 cm??? LV Systolic Volume MOD BP 133.3 cm??? 22 - 58 / 19 - 49 cm??? LV Ejection Fraction MOD BP 28.2 % >= 55 % LV Cardiac Index MOD BP 1256.5 cm???/min???m??? LV Diastolic Volume MOD 4C 172.0 cm??? LV Systolic Volume MOD 4C 118.8 cm??? LV Ejection Fraction MOD 4C 30.9 % LV Cardiac Index MOD 4C 1279.2 cm???/min???m??? LV Diastolic Length 4C 9.4 cm LV Systolic Length 4C 8.9 cm LV Diastolic Volume MOD 2C 195.1 cm??? LV Systolic Volume MOD 2C 147.0 cm??? LV Ejection Fraction MOD 2C 24.7 % LV Cardiac Index MOD 2C 1156.2 cm???/min???m??? LV Diastolic Length 2C 9.2 cm LV Systolic Length 2C 8.8 cm M-MODE Aortic Root Diameter MM 3.2 cm LA Systolic Diameter MM 4.4 cm LA Ao Ratio MM 1.4 AV Cusp Separation MM 1.8 cm DOPPLER Mitral E Point Velocity 93.5 cm/s Mitral A Point Velocity 45.2 cm/s Mitral E to A Ratio 2.1 MV Deceleration Time 235.5 ms TR Peak Velocity 174.1 cm/s TR Peak Gradient 12.1 mmHg Right Ventricular Systolic Press 32.1 mmHg FINDINGS Left Ventricle Left ventricular ejection fraction is estimated at 25-30 %. Mildly increased septal wall thickness. Moderately increased left ventricular diastolic diameter. Moderately increased left ventricular diastolic volume. Severely increased left ventricular systolic volume. Severely decreased left ventricular ejection fraction. Right Ventricle Mild right ventricular dilatation. Right ventricular systolic pressure within normal limits. Right Atrium Severe right atrial dilatation. Left Atrium Severely increased left atrial diameter. Mitral Valve Structurally normal mitral valve. Trace to mild mitral regurgitation. No mitral stenosis. Aortic Valve Trileaflet aortic valve. Tricuspid Valve Structurally normal tricuspid valve. Trace to mild tricuspid regurgitation. No tricuspid stenosis. Pulmonic Valve No pulmonic stenosis. Structurally normal pulmonic valve. Trace pulmonic regurgitation. Pericardium Minimal pericardial effusion (normal variant). No pleural effusion. Aorta Normal size aortic root and proximal ascending aorta. CONCLUSIONS Diagnosis: CHF exacerbation 2D echo shows severe LV dysfunction, increased LV mass Thickened pericardium with trace pericardial effusion Previewed by: Dr. Lewis Valera MD (Electronically Signed) Final Date: 28 July 2024 18:29
--- NOTE | 2024-07-28 23:47 | P.HPIM ---
History of Present Illness H&P Date: 07/28/24 HISTORY OF PRESENT ILLNESS: 54-year-old With active medical history of severe cardiomyopathy with ejection fraction less than 20 percentile, history of left atrial thrombus was previously on Eliquis, chronic kidney disease stage III, history of chronic alcohol abuse, possible history of obstructive sleep apnea, history of recurrent congestive heart failure mostly systolic, history of noncompliance who has not been seen in our office for over 2 years, who apparently had quit taking all his home meds last 2 years and not seen any physician including large sheetfed press operator or primary care or jordan man for over 18 months. He presented to the emergency department on 07/27/2024 with anasarca and severe edema of the lower extremity with weight gain over 50 pounds last few months and again decline has not taking any diuretics or any heart medication for the last 12 months. He become quite bit symptomatic with worsening increased shortness of breath with minimal exertion significant PND orthopnea palpitation was seen and evaluated in the emergency department laboratory value shows elevated troponin with proBNP of 26,200, creatinine was 2.26 previously used to run around 1.4 with GFR at this time down to 32. Had mildly elevated C-reactive protein and normal hemoglobin. EKG showed sinus rhythm with left bundle branch block pulse rate running at 94 bpm. Chest x-ray showed moderate cardiomegaly with interstitial density with patchy opacity over the right lower lobe most likely sequela of congestive heart failure also right tibia and tibial x-ray shows soft tissue swelling with no acute osseous abnormality seen. He was seen evaluated and initiate treatment at the emergency department with having patient on furosemide 40 mg IV Q8 to watch his urine output carefully restarted back on Coreg Plavix originally and has quite a bit cellulitis of the lower extremity was started on Bactrim DS. REVIEW OF SYSTEMS Constitutional: No fever, no chills, no night sweats. No weight change. No weakness, fatigue or lethargy. No daytime sleepiness. EENT: No headache. No blurred vision or double vision, no loss of vision. No loss of Hearing, no ringing in the ears, no dizziness. No nasal drainage or congestion. No epistaxis. No sore throat. Lungs: Reports shortness of breath, cough, no sputum production. No wheezing. Reports dyspnea with exertion. Cardiovascular: No chest pain, reports lower extremity edema. No palpitations. No paroxysmal nocturnal dyspnea. Reports reports abdominal edema. orthopnea. No lightheadedness or dizziness. No syncopal episodes. Abdominal: No abdominal pain. No nausea, vomiting. No diarrhea. No constipation. No bloody or tarry stools. No loss of appetite. Genitourinary: No dysuria, increased frequency, urgency. No urinary retention. Musculoskeletal: No myalgias. No muscle weakness, no gait dysfunction, no frequent falls. No back pain. No neck pain. Integumentary: No wounds, no lesions. No rash or pruritus. No unusual bruising. No change in hair or nails. Neurologic: No aphasia. No facial droop. No change in mentation. No head injury. No headache. No paralysis. No paresthesia. Psychiatric: No depression. No anxiety. No mood swings. Endocrine: No abnormal blood sugars. No weight change. SOCIAL HISTORY Patient was a smoker of 4-5 cigarettes per day and quit 15 years ago. Patient has history of alcohol abuse. He was drinking 6-7 beers daily for many years currently at one to 2 beers per day and has been drinking for greater than 25 years. He lives alone. He does factory work. FAMILY HISTORY Patient is adopted and does not know any of his biological family history. PHYSICAL EXAMINATION Gen: This is a morbidly obese 54-year-old male. He was sitting in the chair and required with distress still have significant anasarca and edema. HEENT: Head is atraumatic, normocephalic. Pupils equal, round. Sclerae is anicteric. NECK: Supple. No JVD. No lymphadenopathy. No thyromegaly. LUNGS: Diminished breath sounds bilaterally. No wheezes or rhonchi. No intercostal retractions. No accessory muscle usage HEART: Regular rate and rhythm. Systolic murmur. ABDOMEN: Soft. Bowel sounds are present. No masses. No tenderness. Generalized anasarca lower torso, hips. EXTREMITIES: 2+ pedal edema. No calf tenderness. Small wounds to the left pretibial area with serous drainage. NEUROLOGICAL: Patient is awake, alert and oriented x3. Cranial nerves 2 through 12 are grossly intact. ASSESSMENT AND PLAN _Acute systolic congestive heart failure: Most likely from noncompliant medication patient will benefit probably from being on Entresto in the meanwhile continue IV Lasix every 8 hours consider to add spironolactone and consider to add smaller dose of beta-kaycee if appropriate by cardiology. Further testing including repeat EKG, repeat troponin and echocardiogram to be done. _Severe nonischemic cardiomyopathy most likely alcohol base with ejection fraction around 20 percentile last time was done with worsening symptoms specially with his noncompliant to medication. _Elevated troponin: Will be seeing cardiology repeat troponin, echo independent his presentation might need further intervention. _Anasarca: With over 50 pounds weight gain mostly fluid retention secondary to alcoholism, nonischemic most likely alcoholic cardiomyopathy and worsening congestive heart failure continue aggressive treatment of diuretics continue to correct albumin and protein level. _Cellulitis of the lower extremity with the current edema and worsening cellulitis initiate Bactrim DS for now. _Acute kidney injury with stage IIIb chronic kidney disease, worsening symptoms most likely with hypoperfusion related to his low ejection fraction along with noncompliance to medication, try to correct the patient recurrent problem by backing him up on medication watching symptoms carefully probably the kidney function will improve also watch while he is on diuretics for any worsening sign of kidney failure. _Obstructive sleep apnea: Patient supposed to be on CPAP is not using it currently. _Chronic alcoholism: He claims has not had any drink last few weeks the patient will be watched to the [facility] protocol and watch for any withdrawal symptoms. _History of left atrial thrombus was previously on Eliquis. _Hyperlipidemia: Resume atorvastatin 80 mg daily. _Hypertension: Was previously done on Coreg and spironolactone along with ARB. _GI prophylaxis: Continue Pepcid 20 mg daily. _DVT prophylaxis: Knee-high PURA hose the patient probably would benefit from going on anticoagulation watch his platelet count carefully. CODE STATUS: Full code. Admit patient to the inpatient service for more than 2 night stay. Past Medical History Past Medical History: Heart Failure, Hypertension Additional Past Medical History / Comment(s): (L) Ventrical blood clot 3.5 year ago History of Any Multi-Drug Resistant Organisms: None Reported Past Surgical History: Orthopedic Surgery Additional Past Surgical History / Comment(s): toe and arm surgery Past Anesthesia/Blood Transfusion Reactions: No Reported Reaction Past Psychological History: No Psychological Hx Reported Smoking Status: Never smoker Past Alcohol Use History: Occasional Past Drug Use History: None Reported - Past Family History Mother History Unknown: Yes Father History Unknown: Yes Medications and Allergies Home Medications Medication Instructions Recorded Confirmed Type Atorvastatin [Lipitor] 80 mg PO HS #30 tab 03/20/22 07/27/24 Rx Furosemide [Lasix] 40 mg PO DAILY #30 tab 03/20/22 07/27/24 Rx Spironolactone [Aldactone] 25 mg PO DAILY #30 tab 03/20/22 07/27/24 Rx Allergies Allergy/AdvReac Type Severity Reaction Status Date / Time warfarin [From Coumadin] Allergy Swelling Verified 07/27/24 17:39 Physical Exam Vitals: Vital Signs Temp Pulse Resp BP Pulse Ox 07/28/24 07:04 63 19 143/98 98 07/28/24 04:00 65 19 124/82 95 07/28/24 01:00 58 L 18 104/63 97 07/27/24 22:39 59 L 16 106/71 95 07/27/24 17:21 91 16 154/110 07/27/24 16:10 92 16 155/130 07/27/24 15:11 99 18 156/116 07/27/24 12:06 98 F 100 16 177/133 98 Results CBC & Chem 7: 07/27/24 12:27 07/27/24 12:27 Labs: Abnormal Lab Results - Last 24 Hours (Table) 07/27/24 07/27/24 07/27/24 Range/Units 12:27 12:27 12:27 MCV 100.2 H (80.0-100.0) fL MCHC 30.9 L (31.0-37.0) g/dL Lymphocytes # 0.6 L (1.0-4.8) k/uL INR 1.2 H (<1.2) Sodium 132 L (137-145) mmol/L Carbon Dioxide 19 L (22-30) mmol/L BUN 54 H (9-20) mg/dL Creatinine 2.26 H (0.66-1.25) mg/dL Glucose 126 H (74-99) mg/dL Total Bilirubin 1.5 H (0.2-1.3) mg/dL AST 160 H (17-59) U/L ALT 245 H (4-49) U/L Alkaline Phosphatase 139 H (38-126) U/L Troponin I (0.000-0.034) ng/mL C-Reactive Protein 1.4 H (<1.0) mg/dL Total Protein 6.1 L (6.3-8.2) g/dL 07/27/24 07/27/24 Range/Units 12:27 17:29 MCV (80.0-100.0) fL MCHC (31.0-37.0) g/dL Lymphocytes # (1.0-4.8) k/uL INR (<1.2) Sodium (137-145) mmol/L Carbon Dioxide (22-30) mmol/L BUN (9-20) mg/dL Creatinine (0.66-1.25) mg/dL Glucose (74-99) mg/dL Total Bilirubin (0.2-1.3) mg/dL AST (17-59) U/L ALT (4-49) U/L Alkaline Phosphatase (38-126) U/L Troponin I 0.149 H* 0.151 H* (0.000-0.034) ng/mL C-Reactive Protein (<1.0) mg/dL Total Protein (6.3-8.2) g/dL
[2024-07-29 07:24] LABS: ALT 153 U/L (4-49); AST 63 U/L (17-59); African American GFR (CKD) 41 (>60 ml/min/1.73 sqM); Alkaline Phosphatase 101 U/L (38-126); Anion Gap 7 mmol/L; Blood Urea Nitrogen 45 mg/dL (9-20); Calcium 8.8 mg/dL (8.4-10.2); Carbon Dioxide 24 mmol/L (22-30); Chloride 105 mmol/L (98-107); Glucose 90 mg/dL (74-99); Non-African American GFR(CKD) 36 (>60 ml/min/1.73 sqM); Sodium 136 mmol/L (137-145); Total Bilirubin 0.7 mg/dL (0.2-1.3); Total Protein 5.4 g/dL (6.3-8.2)
[2024-07-29 07:42] LABS: HCT 41.5 % (39.0-53.0); Hypochromasia Marked; MCH 31.5 pg (25.0-35.0); MCHC 31.3 g/dL (31.0-37.0); MCV 100.5 fL (80.0-100.0); Macrocytosis Slight; Mean Platelet Volume 8.5; Platelet Count 286 k/uL (150-450); RBC 4.13 m/uL (4.30-5.90); WBC 9.9 k/uL (3.8-10.6)
[2024-07-29] MEDS: SACUBITRIL/VALSARTAN 24 MG-26 MG TABLET PO SCH (08:57)
[2024-07-29 11:01] VITALS: BMI 36.2
--- NOTE | 2024-07-29 14:07 | P.PN ---
Subjective HISTORY OF PRESENT ILLNESS: Patient examined this morning at the bedside. Patient currently denies chest pain or pressure. He reports his shortness of breath is improving. He remains on IV Lasix 60 mg twice a day. Creatinine today 2.05. LFTs improving. AST 63. ALT 153. Echocardiogram completed revealing ejection fraction 25 to 30%, trace to mild TR, trace to mild MR, thickened pericardium with trace pericardial effusion. PHYSICAL EXAM: VITAL SIGNS: Reviewed. GENERAL: Well-developed in no acute distress. NECK: Supple. No JVD or thyromegaly LUNGS: Respirations even and unlabored. Lungs essentially clear to auscultation bilaterally. HEART: Regular rate and rhythm. S1 and S2 heard. EXTREMITIES: Normal range of motion. No clubbing or cyanosis. Peripheral pulses intact. 2-3+ bilateral lower extremity edema ASSESSMENT: Acute on chronic heart failure with reduced EF, 25 to 30%, likely due to medication and diet noncompliance Coronary artery disease with previous PCI to proximal circumflex and ramus intermedius, March 2022 Ischemic cardiomyopathy with component of alcohol related cardiomyopathy Hypertension Hyperlipidemia Chronic kidney disease Chronically elevated troponin secondary to poor renal clearance History of alcohol abuse Transaminitis Right lower extremity cellulitis PLAN: Discontinue lisinopril. Begin Entresto at low dose of 1/2 tab of 24-26mg. Will increase as blood pressure will tolerate. Decrease atorvastatin to 40 mg at night due to increased LFTs Continued abstinence from alcohol recommended Continue IV diuretics with Lasix 60 mg twice a day Daily weights, accurate intake and output, and monitoring of kidney function Discussed possibility of ICD in the future to prevent sudden cardiac secondary to cardiomyopathy if his EF does not improve. Patient is agreeable. Further recommendations pending patient course Nurse practitioner note has been reviewed by physician. Signing provider agrees with the documented findings, assessment, and plan of care documented by COOKING INSTRUCTOR as a scribe. Objective - Vital Signs Vital signs: Vital Signs Temp 98 F 07/29/24 11:26 Pulse 59 L 07/29/24 11:26 Resp 16 07/29/24 11:26 BP 109/68 07/29/24 11:26 Pulse Ox 98 07/29/24 11:26 FiO2 Intake & Output 07/28/24 07/29/24 07/29/24 18:59 06:59 18:59 Intake Total 10 598 Output Total 850 725 Balance -840 -127 Weight 112.491 kg 108.1 kg 108.1 kg Intake: IV 10 Invasive Line 1 10 Oral 598 Output: Urine 850 725 Other: Voiding Method Urinal Urinal # Voids 1 - Labs CBC & Chem 7: 07/29/24 06:19 07/29/24 06:19 Labs: Abnormal Lab Results - Last 24 Hours (Table) 07/29/24 07/29/24 Range/Units 06:19 06:19 RBC 4.13 L (4.30-5.90) m/uL MCV 100.5 H (80.0-100.0) fL Sodium 136 L (137-145) mmol/L BUN 45 H (9-20) mg/dL Creatinine 2.05 H (0.66-1.25) mg/dL AST 63 H (17-59) U/L ALT 153 H (4-49) U/L Total Protein 5.4 L (6.3-8.2) g/dL Albumin 3.0 L (3.5-5.0) g/dL
[2024-07-29] MEDS: ATORVASTATIN 40 MG TAB PO SCH (20:37)
--- NOTE | 2024-07-30 06:25 | P.PN ---
Subjective Progress Note Date: 07/29/24 HISTORY OF PRESENT ILLNESS: 54-year-old With active medical history of severe cardiomyopathy with ejection fraction less than 20 percentile, history of left atrial thrombus was previously on Eliquis, chronic kidney disease stage III, history of chronic alcohol abuse, possible history of obstructive sleep apnea, history of recurrent congestive heart failure mostly systolic, history of noncompliance who has not been seen in our office for over 2 years, who apparently had quit taking all his home meds last 2 years and not seen any physician including e marketing specialist or primary care or mathematical sciences professor for over 18 months. He presented to the emergency department on 07/27/2024 with anasarca and severe edema of the lower extremity with weight gain over 50 pounds last few months and again decline has not taking any diuretics or any heart medication for the last 12 months. He become quite bit symptomatic with worsening increased shortness of breath with minimal exertion significant PND orthopnea palpitation was seen and evaluated in the emergency department laboratory value shows elevated troponin with proBNP of 26,200, creatinine was 2.26 previously used to run around 1.4 with GFR at this time down to 32. Had mildly elevated C-reactive protein and normal hemoglobin. EKG showed sinus rhythm with left bundle branch block pulse rate running at 94 bpm. Chest x-ray showed moderate cardiomegaly with interstitial density with patchy opacity over the right lower lobe most li [place] sequela of congestive heart failure also right tibia and tibial x-ray shows soft tissue swelling with no acute osseous abnormality seen. He was seen evaluated and initiate treatment at the emergency department with having patient on furosemide 40 mg IV Q8 to watch his urine output carefully restarted back on Coreg Plavix originally and has quite a bit cellulitis of the lower extremity was started on Bactrim DS. 07/29/2024: He is lost over 5 kg in short period of time his anasarca and swelling in the legs still quite bad at this point still have weight to go the current use of heavy diuretics so far did not have any negative impact on his kidney function and the fact that his GFR has been slightly bit better we will continue to watch it again closely. Cardiology added Entresto 24/26 mg half tablet twice a day which I agree will be the best management plan and is still on Bactrim DS for his cellulitis which should be probably changed to Unasyn instead of the side effect of Bactrim on his kidney function. Furosemide still been done at 60 mg IV twice a day and the patient is able to tolerate spironolactone 25 mg half tablet before he leaves the hospital this time will be [place] to keep him on it. REVIEW OF SYSTEMS Constitutional: No fever, no chills, no night sweats. No weight change. No weakness, fatigue or lethargy. No daytime sleepiness. EENT: No headache. No blurred vision or double vision, no loss of vision. No loss of Hearing, no ringing in the ears, no dizziness. No nasal drainage or congestion. No epistaxis. No sore throat. Lungs: Reports shortness of breath, cough, no sputum production. No wheezing. Reports dyspnea with exertion. Cardiovascular: No chest pain, reports lower extremity edema. No palpitations. No paroxysmal nocturnal dyspnea. Reports reports abdominal edema. orthopnea. No lightheadedness or dizziness. No syncopal episodes. Abdominal: No abdominal pain. No nausea, vomiting. No diarrhea. No constipation. No bloody or tarry stools. No loss of appetite. Genitourinary: No dysuria, increased frequency, urgency. No urinary retention. Musculoskeletal: No myalgias. No muscle weakness, no gait dysfunction, no frequent falls. No back pain. No neck pain. Integumentary: No wounds, no lesions. No rash or pruritus. No unusual bruising. No change in hair or nails. Neurologic: No aphasia. No facial droop. No change in mentation. No head injury. No headache. No paralysis. No paresthesia. Psychiatric: No depression. No anxiety. No mood swings. Endocrine: No abnormal blood sugars. No weight change. PHYSICAL EXAMINATION Gen: This is a morbidly obese 54-year-old male. He was sitting in the chair and required with distress still have significant anasarca and edema. HEENT: Head is atraumatic, normocephalic. Pupils equal, round. Sclerae is anicteric. NECK: Supple. No JVD. No lymphadenopathy. No thyromegaly. LUNGS: Diminished breath sounds bilaterally. No wheezes or rhonchi. No intercostal retractions. No accessory muscle usage HEART: Regular rate and rhythm. Systolic murmur. ABDOMEN: Soft. Bowel sounds are present. No masses. No tenderness. Generalized anasarca lower torso, hips. EXTREMITIES: 2+ pedal edema. No calf tenderness. Small wounds to the left pretibial area with serous drainage. NEUROLOGICAL: Patient is awake, alert and oriented x3. Cranial nerves 2 through 12 are grossly intact. ASSESSMENT AND PLAN _Acute systolic congestive heart failure: Most likely from noncompliant medication patient was started on Entresto his furosemide was switched to 60 mg IV twice daily and hopefully for him to the hospital will be back on spironolactone 12.5 mg a day in the meanwhile continue Coreg 25 mg twice a day. _Severe nonischemic cardiomyopathy most likely alcohol base his ejection fraction is around 30-35 percentile which is slight improvement from the last time he was in the hospital back in 2021. _Elevated troponin: No sign of ongoing acute [place] at this point patient to be treated clinically no intervention or heart cath required. _Anasarca: With over 50 pounds weight gain mostly fluid retention secondary to alcoholism, nonischemic most likely alcoholic cardiomyopathy and worsening congestive heart failure continue aggressive treatment of diuretics continue to correct albumin and protein level. _Cellulitis of the lower extremity with the current edema and worsening cellulitis we will switch antibiotic to Unasyn instead of Bactrim DS to lower the side effect and kidney function. _Acute kidney injury with stage IIIb chronic kidney disease, worsening symptoms most likely with hypoperfusion related to his low ejection fraction along with noncompliance to medication, try to correct the patient recurrent problem by backing him up on medication watching symptoms carefully probably the kidney function will improve also watch while he is on diuretics for any worsening sign of kidney failure. _Obstructive sleep apnea: Patient supposed to be on CPAP is not using it currently. _Chronic alcoholism: He claims has not had any drink last few weeks the patient will be watched to the [facility] protocol and watch for any withdrawal symptoms. So far there is no sign of withdrawal symptoms patient adequate drinking at least 10 days before his hospitalization at this time. _History of left atrial thrombus was previously on Eliquis. Resume medication. _Hyperlipidemia: Resume atorvastatin 80 mg daily. _Hypertension: Was previously done on Coreg and spironolactone along with ARB. _GI prophylaxis: Continue Pepcid 20 mg daily. Discussion: The overall condition still not doing that well with patient hopefully will improve with current management and treatment if he is to be compliant with his treatment at Long discussion with the patient today and promised again to keep his appointment and keep follow-up with his e marketing specialist in our office on more regular basis we have a plan probably to have him get back in the office at least once a month for the next 6 months for better management and control of his weight diuretics medication and alcohol dependency. Objective - Vital Signs Vital signs: Vital Signs Temp 97.8 F 07/29/24 03:11 Pulse 61 07/29/24 03:11 Resp 16 07/29/24 03:11 BP 126/73 07/29/24 03:11 Pulse Ox 95 07/29/24 03:11 FiO2 Intake & Output 07/28/24 07/28/24 07/29/24 06:59 18:59 06:59 Intake Total 10 Output Total 850 Balance -840 Weight 112.491 kg 108.1 kg Intake: IV 10 Invasive Line 1 10 Output: Urine 850 Other: Voiding Method Urinal - Labs CBC & Chem 7: 07/29/24 06:19 07/29/24 06:19 Labs: Abnormal Lab Results - Last 24 Hours (Table) 07/28/24 Range/Units 11:10 Urine Protein Trace H (Negative)
[2024-07-30 07:32] LABS: African American GFR (CKD) 40 (>60 ml/min/1.73 sqM); Anion Gap 7 mmol/L; Blood Urea Nitrogen 42 mg/dL (9-20); Calcium 8.4 mg/dL (8.4-10.2); Carbon Dioxide 25 mmol/L (22-30); Chloride 103 mmol/L (98-107); Glucose 90 mg/dL (74-99); Non-African American GFR(CKD) 35 (>60 ml/min/1.73 sqM); Potassium 3.9 mmol/L (3.5-5.1); Sodium 135 mmol/L (137-145)
[2024-07-30] MEDS: AMPICILLIN-SULBACTAM 3 GM in SODIUM CHLORIDE 0.9% 100 ML IVPB SCH (08:19)
--- NOTE | 2024-07-30 10:49 | P.PN ---
Subjective Patient is seen for follow-up for acute kidney injury associated with cardiorenal syndrome. Patient states that he is feeling better. He is currently maintained on IV Lasix. Patient is in the shower Objective - Vital Signs Vital signs: Vital Signs Temp 97.9 F 07/30/24 08:00 Pulse 61 07/30/24 08:00 Resp 18 07/30/24 08:00 BP 117/63 07/30/24 08:00 Pulse Ox 96 07/30/24 08:00 FiO2 Intake & Output 07/29/24 07/30/24 07/30/24 18:59 06:59 18:59 Intake Total 1196 10 360 Output Total 1550 1925 200 Balance -354 -1915 160 Weight 108.1 kg 107.5 kg Intake: IV 10 Invasive Line 1 10 Oral 1196 360 Output: Urine 1550 1925 200 Other: Voiding Method Urinal Urinal Urinal # Voids 1 - Exam Patient is currently in the shower - Labs CBC & Chem 7: 07/29/24 06:19 07/30/24 06:47 Labs: Abnormal Lab Results - Last 24 Hours (Table) 07/30/24 Range/Units 06:47 Sodium 135 L (137-145) mmol/L BUN 42 H (9-20) mg/dL Creatinine 2.10 H (0.66-1.25) mg/dL Assessment and Plan Assessment: 1. Acute kidney injury, cardiorenal. Maintained on IV Lasix. No significant hypotension noted. UA is benign with trace protein 2. Cardiomyopathy with EF of 20-25% on echocardiogram in 2021 3. Chronic kidney disease NKF stage IIIa with baseline creatinine about 1.3-1.4 mg/dL 4. Volume overload 5. Right lower extremity cellulitis maintained on Bactrim, now discontinued and patient is maintained on Unasyn Plan: continue IV Lasix. Accurate I's and O's Repeat labs in a.m. T
--- NOTE | 2024-07-30 10:52 | P.PN ---
Subjective Patient is seen for follow-up for acute kidney injury associated with cardiorenal syndrome. Patient states that he is feeling better. He is currently maintained on IV Lasix. Serum creatinine staying at about 2.0. Shortness of breath has improved. 24-hour urine output at 3.4 L. Weight has decreased significantly. Objective - Vital Signs Vital signs: Vital Signs Temp 97.9 F 07/30/24 08:00 Pulse 61 07/30/24 08:00 Resp 18 07/30/24 08:00 BP 117/63 07/30/24 08:00 Pulse Ox 96 07/30/24 08:00 FiO2 Intake & Output 07/29/24 07/30/24 07/30/24 18:59 06:59 18:59 Intake Total 1196 10 360 Output Total 1550 1925 200 Balance -354 -1915 160 Weight 108.1 kg 107.5 kg Intake: IV 10 Invasive Line 1 10 Oral 1196 360 Output: Urine 1550 1925 200 Other: Voiding Method Urinal Urinal Urinal # Voids 1 - Exam patient is awake, comfortable, no acute distress. Examination of the heart S1 and S2 Examination of the lungs bilateral breath sounds are heard with decreased breath sounds at the bases Abdomen is soft nontender Examination lower extremity shows 3-4+ edema with significant erythema of the skin noted in the right leg. AIRPORT SKILLED MAINTENANCE SUPERVISOR exam grossly intact - Labs CBC & Chem 7: 07/29/24 06:19 07/30/24 06:47 Labs: Abnormal Lab Results - Last 24 Hours (Table) 07/30/24 Range/Units 06:47 Sodium 135 L (137-145) mmol/L BUN 42 H (9-20) mg/dL Creatinine 2.10 H (0.66-1.25) mg/dL Assessment and Plan Assessment: 1. Acute kidney injury, cardiorenal. Maintained on IV Lasix. No significant hypotension noted. UA is benign with trace protein 2. Cardiomyopathy with EF of 20-25% on echocardiogram in 2021 3. Chronic kidney disease NKF stage IIIa with baseline creatinine about 1.3-1.4 mg/dL 4. Volume overload 5. Right lower extremity cellulitis , maintained on Unasyn Plan: continue IV Lasix. Accurate I's and O's Repeat labs in a.m. T
--- NOTE | 2024-07-30 12:43 | P.PN ---
Subjective HISTORY OF PRESENT ILLNESS: Patient examined this morning at the bedside. Patient currently denies chest pain or pressure. He reports his shortness of breath is improving. He remains on IV Lasix 60 mg twice a day. Creatinine today 2.05. LFTs improving. AST 63. ALT 153. Echocardiogram completed revealing ejection fraction 25 to 30%, trace to mild TR, trace to mild MR, thickened pericardium with trace pericardial effusion. 07/30/2024 Patient examined this morning. He is sitting on the side of the bed. Patient currently denies chest pain or pressure. He denies shortness of breath. He continues to have significant lower extremity edema. Creatinine 2.10 today. He remains on IV Lasix 60 mg every 12 hours. Urine output for the last 24 hours is 3475 cc. Net balance for 24 hours is -2 L PHYSICAL EXAM: VITAL SIGNS: Reviewed. GENERAL: Well-developed in no acute distress. NECK: Supple. No JVD or thyromegaly LUNGS: Respirations even and unlabored. Lungs essentially clear to auscultation bilaterally. HEART: Regular rate and rhythm. S1 and S2 heard. EXTREMITIES: Normal range of motion. No clubbing or cyanosis. Peripheral pulses intact. 3+ bilateral lower extremity edema, up to the thigh ASSESSMENT: Acute on chronic heart failure with reduced EF, 25 to 30%, likely due to medication and diet noncompliance Coronary artery disease with previous PCI to proximal circumflex and ramus intermedius, March 2022 Ischemic cardiomyopathy with component of alcohol related cardiomyopathy Hypertension Hyperlipidemia Chronic kidney disease Chronically elevated troponin secondary to poor renal clearance History of alcohol abuse Transaminitis Right lower extremity cellulitis PLAN: Continue Entresto at low dose of 1/2 tab of 24-26mg. Will increase as blood pressure will tolerate. Continued abstinence from alcohol recommended Continue IV diuretics with Lasix 60 mg twice a day Daily weights, accurate intake and output, and monitoring of kidney function Discussed possibility of ICD in the future to prevent sudden cardiac secondary to cardiomyopathy if his EF does not improve. Patient is agreeable. Further recommendations pending patient course Nurse practitioner note has been reviewed by physician. Signing provider agrees with the documented findings, assessment, and plan of care documented by ROVING MARKER as a scribe. Objective - Vital Signs Vital signs: Vital Signs Temp 97.9 F 07/30/24 08:00 Pulse 63 07/30/24 11:25 Resp 16 07/30/24 11:25 BP 102/67 07/30/24 11:25 Pulse Ox 98 07/30/24 11:25 FiO2 Intake & Output 07/29/24 07/30/24 07/30/24 18:59 06:59 18:59 Intake Total 1196 10 360 Output Total 1550 1925 400 Balance -354 -1915 -40 Weight 108.1 kg 107.5 kg Intake: IV 10 Invasive Line 1 10 Oral 1196 360 Output: Urine 1550 1925 400 Other: Voiding Method Urinal Urinal Urinal # Voids 1 - Labs CBC & Chem 7: 07/29/24 06:19 07/30/24 06:47 Labs: Abnormal Lab Results - Last 24 Hours (Table) 07/30/24 Range/Units 06:47 Sodium 135 L (137-145) mmol/L BUN 42 H (9-20) mg/dL Creatinine 2.10 H (0.66-1.25) mg/dL
--- NOTE | 2024-07-30 22:28 | P.PN ---
Subjective Progress Note Date: 07/30/24 HISTORY OF PRESENT ILLNESS: 54-year-old With active medical history of severe cardiomyopathy with ejection fraction less than 20 percentile, history of left atrial thrombus was previously on Eliquis, chronic kidney disease stage III, history of chronic alcohol abuse, possible history of obstructive sleep apnea, history of recurrent congestive heart failure mostly systolic, history of noncompliance who has not been seen in our office for over 2 years, who apparently had quit taking all his home meds last 2 years and not seen any physician including section laborer or primary care or data reporting analyst for over 18 months. He presented to the emergency department on 07/27/2024 with anasarca and severe edema of the lower extremity with weight gain over 50 pounds last few months and again decline has not taking any diuretics or any heart medication for the last 12 months. He become quite bit symptomatic with worsening increased shortness of breath with minimal exertion significant PND orthopnea palpitation was seen and evaluated in the emergency department laboratory value shows elevated troponin with proBNP of 26,200, creatinine was 2.26 previously used to run around 1.4 with GFR at this time down to 32. Had mildly elevated C-reactive protein and normal hemoglobin. EKG showed sinus rhythm with left bundle branch block pulse rate running at 94 bpm. Chest x-ray showed moderate cardiomegaly with interstitial density with patchy opacity over the right lower lobe most li [place] sequela of congestive heart failure also right tibia and tibial x-ray shows soft tissue swelling with no acute osseous abnormality seen. He was seen evaluated and initiate treatment at the emergency department with having patient on furosemide 40 mg IV Q8 to watch his urine output carefully restarted back on Coreg Plavix originally and has quite a bit cellulitis of the lower extremity was started on Bactrim DS. 07/29/2024: He is lost over 5 kg in short period of time his anasarca and swelling in the legs still quite bad at this point still have weight to go the current use of heavy diuretics so far did not have any negative impact on his kidney function and the fact that his GFR has been slightly bit better we will continue to watch it again closely. Cardiology added Entresto 24/26 mg half tablet twice a day which I agree will be the best management plan and is still on Bactrim DS for his cellulitis which should be probably changed to Unasyn instead of the side effect of Bactrim on his kidney function. Furosemide still been done at 60 mg IV twice a day and the patient is able to tolerate spironolactone 25 mg half tablet before he leaves the hospital this time will be sanford to keep him on it. 07/30/2024: Cardiology is change patient medication remain on furosemide IV 60 mg twice a day but having addition of Entresto and hydralazine with the possibility in the future of having to use isosorbide can be extremely beneficial. Weight sanford he is weight is down to around 105 continue to make good urine output at this point, edema and swelling in the lower extremity much better and cellulitis in the right leg still hot antibiotic sanford we will switch patient from oral to IV Unasyn at this point. REVIEW OF SYSTEMS Constitutional: No fever, no chills, no night sweats. No weight change. No weakness, fatigue or lethargy. No daytime sleepiness. EENT: No headache. No blurred vision or double vision, no loss of vision. No loss of Hearing, no ringing in the ears, no dizziness. No nasal drainage or congestion. No epistaxis. No sore throat. Lungs: Reports shortness of breath, cough, no sputum production. No wheezing. Reports dyspnea with exertion. Cardiovascular: No chest pain, reports lower extremity edema. No palpitations. No paroxysmal nocturnal dyspnea. Reports reports abdominal edema. orthopnea. No lightheadedness or dizziness. No syncopal episodes. Abdominal: No abdominal pain. No nausea, vomiting. No diarrhea. No constipation. No bloody or tarry stools. No loss of appetite. Genitourinary: No dysuria, increased frequency, urgency. No urinary retention. Musculoskeletal: No myalgias. No muscle weakness, no gait dysfunction, no frequent falls. No back pain. No neck pain. Integumentary: No wounds, no lesions. No rash or pruritus. No unusual bruising. No change in hair or nails. Neurologic: No aphasia. No facial droop. No change in mentation. No head injury. No headache. No paralysis. No paresthesia. Psychiatric: No depression. No anxiety. No mood swings. Endocrine: No abnormal blood sugars. No weight change. PHYSICAL EXAMINATION Gen: This is a morbidly obese 54-year-old male. He was sitting in the chair and required with distress still have significant anasarca and edema. HEENT: Head is atraumatic, normocephalic. Pupils equal, round. Sclerae is anicteric. NECK: Supple. No JVD. No lymphadenopathy. No thyromegaly. LUNGS: Diminished breath sounds bilaterally. No wheezes or rhonchi. No intercostal retractions. No accessory muscle usage HEART: Regular rate and rhythm. Systolic murmur. ABDOMEN: Soft. Bowel sounds are present. No masses. No tenderness. Generalized anasarca lower torso, hips. EXTREMITIES: 2+ pedal edema. No calf tenderness. Small wounds to the left pretibial area with serous drainage. NEUROLOGICAL: Patient is awake, alert and oriented x3. Cranial nerves 2 through 12 are grossly intact. ASSESSMENT AND PLAN _Acute systolic congestive heart failure: Most likely from noncompliant medication patient was started on Entresto his furosemide was switched to 60 mg IV twice daily and hopefully for him to the hospital will be back on spironolactone 12.5 mg a day in the meanwhile continue Coreg 25 mg twice a day. _Severe nonischemic cardiomyopathy most likely alcohol base his ejection fraction is around 30-35 percentile which is slight improvement from the last time he was in the hospital back in 2021. _Elevated troponin: No sign of ongoing acute [place] at this point patient to be treated clinically no intervention or heart cath required. _Anasarca: With over 50 pounds weight gain mostly fluid retention secondary to alcoholism, nonischemic most likely alcoholic cardiomyopathy and worsening congestive heart failure continue aggressive treatment of diuretics continue to correct albumin and protein level. _Anasarca and edema: Most likely fluid retention from cardiomyopathy with lack of diuretics and compliance mostly has done much better so far _Cellulitis of the lower extremity with the current edema and worsening cellulitis we will switch antibiotic to Unasyn instead of Bactrim DS to lower the side effect and kidney function. _Acute kidney injury with stage IIIb chronic kidney disease, worsening symptoms most likely with hypoperfusion related to his low ejection fraction along with noncompliance to medication, try to correct the patient recurrent problem by backing him up on medication watching symptoms carefully probably the kidney function will improve also watch while he is on diuretics for any worsening sign of kidney failure. _Obstructive sleep apnea: Patient supposed to be on CPAP is not using it currently. _Chronic alcoholism: He claims has not had any drink last few weeks the patient will be watched to the [facility] protocol and watch for any withdrawal symptoms. So far there is no sign of withdrawal symptoms patient adequate drinking at least 10 days before his hospitalization at this time. _History of left atrial thrombus was previously on Eliquis. Resume medication. _Hyperlipidemia: Resume atorvastatin 80 mg daily. _Hypertension: Was previously done on Coreg and spironolactone along with ARB. _GI prophylaxis: Continue Pepcid 20 mg daily. Discussion: He is improving significantly significant weight loss is agreeable to medications currently on and he is going to go to AA and continue help with counseling and anything any to help him to quit drinking. Objective - Vital Signs Vital signs: Vital Signs Temp 98.1 F 07/29/24 23:10 Pulse 66 07/30/24 04:00 Resp 15 07/30/24 04:00 BP 120/63 07/30/24 04:00 Pulse Ox 96 07/30/24 04:00 FiO2 Intake & Output 07/29/24 07/29/24 07/30/24 06:59 18:59 06:59 Intake Total 10 1196 10 Output Total 850 1550 1925 Balance -421 -643 -6151 Weight 108.1 kg 108.1 kg Intake: IV 10 10 Invasive Line 1 10 10 Oral 1196 Output: Urine 850 1550 1925 Other: Voiding Method Urinal Urinal Urinal # Voids 1 - Labs CBC & Chem 7: 07/29/24 06:19 07/30/24 06:47 Labs: Abnormal Lab Results - Last 24 Hours (Table) 07/29/24 07/29/24 Range/Units 06:19 06:19 RBC 4.13 L (4.30-5.90) m/uL MCV 100.5 H (80.0-100.0) fL Sodium 136 L (137-145) mmol/L BUN 45 H (9-20) mg/dL Creatinine 2.05 H (0.66-1.25) mg/dL AST 63 H (17-59) U/L ALT 153 H (4-49) U/L Total Protein 5.4 L (6.3-8.2) g/dL Albumin 3.0 L (3.5-5.0) g/dL
[2024-07-31 06:19] LABS: HCT 42.9 % (39.0-53.0); Hypochromasia Marked; MCHC 30.3 g/dL (31.0-37.0); MCV 102.1 fL (80.0-100.0); Macrocytosis Slight; Mean Platelet Volume 7.9; Platelet Count 260 k/uL (150-450); RBC 4.21 m/uL (4.30-5.90); RDW 14.8 % (11.5-15.5); WBC 8.5 k/uL (3.8-10.6)
[2024-07-31 06:37] LABS: ALT 93 U/L (4-49); AST 38 U/L (17-59); African American GFR (CKD) 49 (>60 ml/min/1.73 sqM); Albumin 2.6 g/dL (3.5-5.0); Alkaline Phosphatase 81 U/L (38-126); Anion Gap 8 mmol/L; Blood Urea Nitrogen 35 mg/dL (9-20); Calcium 8.3 mg/dL (8.4-10.2); Carbon Dioxide 26 mmol/L (22-30); Chloride 101 mmol/L (98-107); Glucose 88 mg/dL (74-99); Non-African American GFR(CKD) 42 (>60 ml/min/1.73 sqM); Potassium 3.6 mmol/L (3.5-5.1); Sodium 135 mmol/L (137-145); Total Bilirubin 0.8 mg/dL (0.2-1.3)
--- NOTE | 2024-07-31 11:07 | P.PN ---
Subjective Patient is seen for follow-up for acute kidney injury associated with cardiorenal syndrome. Patient states that he is feeling better. He is currently maintained on IV Lasix. Serum creatinine decreased to 1.79 Shortness of breath has improved. 24-hour urine output at 3.4 L. Weight has decreased significantly. Objective - Vital Signs Vital signs: Vital Signs Temp 97.9 F 07/31/24 08:00 Pulse 63 07/31/24 08:00 Resp 20 07/31/24 08:00 BP 119/59 07/31/24 08:00 Pulse Ox 96 07/31/24 08:00 FiO2 Intake & Output 07/30/24 07/31/24 07/31/24 18:59 06:59 18:59 Intake Total 1140 118 Output Total 400 Balance 740 118 Weight 104.3 kg Intake: Oral 1140 118 Output: Urine 400 Other: Voiding Method Urinal Urinal - Exam patient is awake, comfortable, no acute distress. Examination of the heart S1 and S2 Examination of the lungs bilateral breath sounds are heard with decreased breath sounds at the bases Abdomen is soft nontender Examination lower extremity shows 3-4+ edema with significant erythema of the skin noted in the right leg. NEW ORDER CLERK exam grossly intact - Labs CBC & Chem 7: 07/31/24 05:58 07/31/24 05:58 Labs: Abnormal Lab Results - Last 24 Hours (Table) 07/31/24 07/31/24 Range/Units 05:58 05:58 RBC 4.21 L (4.30-5.90) m/uL MCV 102.1 H (80.0-100.0) fL MCHC 30.3 L (31.0-37.0) g/dL Sodium 135 L (137-145) mmol/L BUN 35 H (9-20) mg/dL Creatinine 1.79 H (0.66-1.25) mg/dL Calcium 8.3 L (8.4-10.2) mg/dL ALT 93 H (4-49) U/L Total Protein 5.0 L (6.3-8.2) g/dL Albumin 2.6 L (3.5-5.0) g/dL Assessment and Plan Assessment: 1. Acute kidney injury, cardiorenal. Maintained on IV Lasix. No significant hypotension noted. UA is benign with trace protein 2. Cardiomyopathy with EF of 20-25% on echocardiogram in 2021 3. Chronic kidney disease NKF stage IIIa with baseline creatinine about 1.3-1.4 mg/dL 4. Volume overload 5. Right lower extremity cellulitis , maintained on Unasyn Plan: continue IV Lasix. Add low-dose metolazone Accurate I's and O's Repeat labs in a.m. T
[2024-07-31] MEDS: SACUBITRIL/VALSARTAN 24 MG-26 MG TABLET PO SCH (11:52)
[2024-07-31] MEDS: hydrALAZINE HCL 50 MG TAB PO SCH (11:53)
--- NOTE | 2024-07-31 13:00 | P.PN ---
Subjective HISTORY OF PRESENT ILLNESS: Patient examined this morning at the bedside. Patient currently denies chest pain or pressure. He reports his shortness of breath is improving. He remains on IV Lasix 60 mg twice a day. Creatinine today 2.05. LFTs improving. AST 63. ALT 153. Echocardiogram completed revealing ejection fraction 25 to 30%, trace to mild TR, trace to mild MR, thickened pericardium with trace pericardial effusion. 07/30/2024 Patient examined this morning. He is sitting on the side of the bed. Patient currently denies chest pain or pressure. He denies shortness of breath. He continues to have significant lower extremity edema. Creatinine 2.10 today. He remains on IV Lasix 60 mg every 12 hours. Urine output for the last 24 hours is 3475 cc. Net balance for 24 hours is -2 L 07/30/2024 Patient examined this morning the bedside. Patient denies any chest pain or pressure. He denies shortness of breath. He continues to have lower extremity edema. He remains on IV Lasix 60 mg twice a day. Creatinine today 1.79. PHYSICAL EXAM: VITAL SIGNS: Reviewed. GENERAL: Well-developed in no acute distress. NECK: Supple. No JVD or thyromegaly LUNGS: Respirations even and unlabored. Lungs essentially clear to auscultation bilaterally. HEART: Regular rate and rhythm. S1 and S2 heard. EXTREMITIES: Normal range of motion. No clubbing or cyanosis. Peripheral pulses intact. 3+ bilateral lower extremity edema, up to the thigh ASSESSMENT: Acute on chronic heart failure with reduced EF, 25 to 30%, likely due to med ication and diet noncompliance Coronary artery disease with previous PCI to proximal circumflex and ramus intermedius, March 2022 Ischemic cardiomyopathy with component of alcohol related cardiomyopathy Hypertension Hyperlipidemia Chronic kidney disease Chronically elevated troponin secondary to poor renal clearance History of alcohol abuse Transaminitis Right lower extremity cellulitis PLAN: Continue Entresto. Increase dose to 24-26 mg twice a day Decrease hydralazine to 50 mg 3 times daily Continued abstinence from alcohol recommended Continue IV diuretics with Lasix 60 mg twice a day Daily weights, accurate intake and output, and monitoring of kidney function Discussed possibility of ICD in the future to prevent sudden cardiac secondary to cardiomyopathy if his EF does not improve. Patient is agreeable. Further recommendations pending patient course Nurse practitioner note has been reviewed by physician. Signing provider agrees with the documented findings, assessment, and plan of care documented by CLARIFICATION OPERATOR as a scribe. Objective - Vital Signs Vital signs: Vital Signs Temp 97.8 F 07/31/24 11:34 Pulse 62 07/31/24 11:34 Resp 20 07/31/24 11:34 BP 117/75 07/31/24 11:34 Pulse Ox 98 07/31/24 11:34 FiO2 Intake & Output 07/30/24 07/31/24 07/31/24 18:59 06:59 18:59 Intake Total 1140 118 Output Total 400 Balance 740 118 Weight 104.3 kg Intake: Oral 1140 118 Output: Urine 400 Other: Voiding Method Urinal Urinal - Labs CBC & Chem 7: 07/31/24 05:58 07/31/24 05:58 Labs: Abnormal Lab Results - Last 24 Hours (Table) 07/31/24 07/31/24 Range/Units 05:58 05:58 RBC 4.21 L (4.30-5.90) m/uL MCV 102.1 H (80.0-100.0) fL MCHC 30.3 L (31.0-37.0) g/dL Sodium 135 L (137-145) mmol/L BUN 35 H (9-20) mg/dL Creatinine 1.79 H (0.66-1.25) mg/dL Calcium 8.3 L (8.4-10.2) mg/dL ALT 93 H (4-49) U/L Total Protein 5.0 L (6.3-8.2) g/dL Albumin 2.6 L (3.5-5.0) g/dL
[2024-08-01 00:51] VITALS: RESP 16
--- NOTE | 2024-08-01 06:47 | P.PN ---
Subjective Progress Note Date: 07/31/24 HISTORY OF PRESENT ILLNESS: 54-year-old With active medical history of severe cardiomyopathy with ejection fraction less than 20 percentile, history of left atrial thrombus was previously on Eliquis, chronic kidney disease stage III, history of chronic alcohol abuse, possible history of obstructive sleep apnea, history of recurrent congestive heart failure mostly systolic, history of noncompliance who has not been seen in our office for over 2 years, who apparently had quit taking all his home meds last 2 years and not seen any physician including hand tube winder or primary care or ribbon blocker for over 18 months. He presented to the emergency department on 07/27/2024 with anasarca and severe edema of the lower extremity with weight gain over 50 pounds last few months and again decline has not taking any diuretics or any heart medication for the last 12 months. He become quite bit symptomatic with worsening increased shortness of breath with minimal exertion significant PND orthopnea palpitation was seen and evaluated in the emergency department laboratory value shows elevated troponin with proBNP of 26,200, creatinine was 2.26 previously used to run around 1.4 with GFR at this time down to 32. Had mildly elevated C-reactive protein and normal hemoglobin. EKG showed sinus rhythm with left bundle branch block pulse rate running at 94 bpm. Chest x-ray showed moderate cardiomegaly with interstitial density with patchy opacity over the right lower lobe most li [place]en[place] sequela of congestive heart failure also right tibia and tibial x-ray shows soft tissue swelling with no acute osseous abnormality seen. He was seen evaluated and initiate treatment at the emergency department with having patient on furosemide 40 mg IV Q8 to watch his urine output carefully restarted back on Coreg Plavix originally and has quite a bit cellulitis of the lower extremity was started on Bactrim DS. 07/29/2024: He is lost over 5 kg in short period of time his anasarca and swelling in the legs still quite bad at this point still have weight to go the current use of heavy diuretics so far did not have any negative impact on his kidney function and the fact that his GFR has been slightly bit better we will continue to watch it again closely. Cardiology added Entresto 24/26 mg half tablet twice a day which I agree will be the best management plan and is still on Bactrim DS for his cellulitis which should be probably changed to Unasyn instead of the side effect of Bactrim on his kidney function. Furosemide still been done at 60 mg IV twice a day and the patient is able to tolerate spironolactone 25 mg half tablet before he leaves the hospital this time will be sanford to keep him on it. 07/30/2024: Cardiology is change patient medication remain on furosemide IV 60 mg twice a day but having addition of Entresto and hydralazine with the possibility in the future of having to use isosorbide can be extremely beneficial. Weight sanford he is weight is down to around 105 continue to make good urine output at this point, edema and swelling in the lower extremity much better and cellulitis in the right leg still hot antibiotic sanford we will switch patient from oral to IV Unasyn at this point. 07/31/2024: He has done quite well last 24 hours his weight is down to 101 with total reduction of almost 12 kg over 27 pounds in a short period of time he has been here. Continue current management wound care and cellulitis of the leg has improved some and patient be switched to oral medication as early as tomorrow. His laboratory evaluate kidney function has improved significantly creatinine dropped to 1.79 will repeat his labs again tomorrow morning hopefully the patient be discharged home tomorrow. Left social media strategist a prescription to see if he has coverage for Entresto which will be helpful before his discharge rest of his medication are affordable. REVIEW OF SYSTEMS Constitutional: No fever, no chills, no night sweats. No weight change. No weakness, fatigue or lethargy. No daytime sleepiness. EENT: No headache. No blurred vision or double vision, no loss of vision. No loss of Hearing, no ringing in the ears, no dizziness. No nasal drainage or congestion. No epistaxis. No sore throat. Lungs: Reports shortness of breath, cough, no sputum production. No wheezing. Reports dyspnea with exertion. Cardiovascular: No chest pain, reports lower extremity edema. No palpitations. No paroxysmal nocturnal dyspnea. Reports reports abdominal edema. orthopnea. No lightheadedness or dizziness. No syncopal episodes. Abdominal: No abdominal pain. No nausea, vomiting. No diarrhea. No constipation. No bloody or tarry stools. No loss of appetite. Genitourinary: No dysuria, increased frequency, urgency. No urinary retention. Musculoskeletal: No myalgias. No muscle weakness, no gait dysfunction, no frequent falls. No back pain. No neck pain. Integumentary: No wounds, no lesions. No rash or pruritus. No unusual bruising. No change in hair or nails. Neurologic: No aphasia. No facial droop. No change in mentation. No head injury. No headache. No paralysis. No paresthesia. Psychiatric: No depression. No anxiety. No mood swings. Endocrine: No abnormal blood sugars. No weight change. PHYSICAL EXAMINATION Gen: This is a morbidly obese 54-year-old male. He was sitting in the chair and required with distress still have significant anasarca and edema. HEENT: Head is atraumatic, normocephalic. Pupils equal, round. Sclerae is anicteric. NECK: Supple. No JVD. No lymphadenopathy. No thyromegaly. LUNGS: Diminished breath sounds bilaterally. No wheezes or rhonchi. No intercostal retractions. No accessory muscle usage HEART: Regular rate and rhythm. Systolic murmur. ABDOMEN: Soft. Bowel sounds are present. No masses. No tenderness. Generalized anasarca lower torso, hips. EXTREMITIES: 2+ pedal edema. No calf tenderness. Small wounds to the left pretibial area with serous drainage. NEUROLOGICAL: Patient is awake, alert and oriented x3. Cranial nerves 2 through 12 are grossly intact. ASSESSMENT AND PLAN _Acute systolic congestive heart failure: He was not taking his medication for several months, he is back on Entresto, carvedilol, spironolactone, furosemide and Zaroxolyn medication will be change back to oral furosemide tomorrow and Zaroxolyn will be decreased to 2.5 mg a day he is weight loss is going very fast should slow down little bit. _Severe alcoholic cardiomyopathy with ejection fraction of 30 percentile, currently getting Medication Entresto, Coreg, amiodarone and Lasix. _Elevated troponin: No sign of ongoing acute PA at this point patient to be treated clinically no intervention or heart cath required. _Anasarca: Has lost so far over 27 pounds in the short period of time we will continue current medication and try to lose more with total probably 50+ pounds. _Cellulitis of the lower extremity with the current edema and worsening cellulitis we will switch antibiotic doxycycline and Silvadene cream. _Acute kidney injury with stage IIIb chronic kidney disease, worsening symptoms most likely with hypoperfusion related to his low ejection fraction along with noncompliance to medication, try to correct the patient recurrent problem by backing him up on medication watching symptoms carefully probably the kidney function will improve also watch while he is on diuretics for any worsening sign of kidney failure. _Obstructive sleep apnea: Patient supposed to be on CPAP is not using it currently. _Chronic alcoholism: Has not had any alcohol in over 2 weeks is not showing any sign of withdrawal symptoms patient will be going back to AA and more supportive care will continue thiamine along with folic acid. _History of left atrial thrombus was previously on Eliquis. Resume medication. _Hyperlipidemia: Resume atorvastatin 80 mg daily. _Hypertension: Was previously done on Coreg and spironolactone along with ARB. _GI prophylaxis: Continue Pepcid 20 mg daily. Discussion: Patient is doing very well hopefully will be discharged home enoch hines to follow-up every 2 to 4 weeks as an outpatient with follow-up with cardiology every 6 weeks. Objective - Vital Signs Vital signs: Vital Signs Temp 97.8 F 07/31/24 00:00 Pulse 68 07/31/24 04:00 Resp 14 07/31/24 04:00 BP 123/68 07/31/24 04:00 Pulse Ox 96 07/31/24 04:00 FiO2 Intake & Output 07/30/24 07/31/24 07/31/24 18:59 06:59 18:59 Intake Total 1140 Output Total 400 Balance 740 Weight 104.3 kg Intake: Oral 1140 Output: Urine 400 Other: Voiding Method Urinal Urinal - Labs CBC & Chem 7: 07/31/24 05:58 07/31/24 05:58 Labs: Abnormal Lab Results - Last 24 Hours (Table) 07/31/24 07/31/24 Range/Units 05:58 05:58 RBC 4.21 L (4.30-5.90) m/uL MCV 102.1 H (80.0-100.0) fL MCHC 30.3 L (31.0-37.0) g/dL Sodium 135 L (137-145) mmol/L BUN 35 H (9-20) mg/dL Creatinine 1.79 H (0.66-1.25) mg/dL Calcium 8.3 L (8.4-10.2) mg/dL ALT 93 H (4-49) U/L Total Protein 5.0 L (6.3-8.2) g/dL Albumin 2.6 L (3.5-5.0) g/dL
[2024-08-01 08:20] LABS: HCT 44.7 % (39.0-53.0); HGB 13.6 gm/dL (13.0-17.5); Hypochromasia Marked; MCH 31.2 pg (25.0-35.0); MCHC 30.5 g/dL (31.0-37.0); MCV 102.3 fL (80.0-100.0); Macrocytosis Slight; Mean Platelet Volume 7.9; Platelet Count 245 k/uL (150-450); RBC 4.37 m/uL (4.30-5.90); RDW 14.5 % (11.5-15.5); WBC 6.4 k/uL (3.8-10.6)
[2024-08-01 08:30] LABS: ALT 82 U/L (4-49); AST 40 U/L (17-59); African American GFR (CKD) 49 (>60 ml/min/1.73 sqM); Alkaline Phosphatase 73 U/L (38-126); Anion Gap 7 mmol/L; Blood Urea Nitrogen 30 mg/dL (9-20); Calcium 8.6 mg/dL (8.4-10.2); Carbon Dioxide 26 mmol/L (22-30); Chloride 101 mmol/L (98-107); Glucose 151 mg/dL (74-99); Non-African American GFR(CKD) 43 (>60 ml/min/1.73 sqM); Potassium 3.9 mmol/L (3.5-5.1); Sodium 134 mmol/L (137-145); Total Bilirubin 0.7 mg/dL (0.2-1.3); Total Protein 5.4 g/dL (6.3-8.2)
[2024-08-01] MEDS: FUROSEMIDE 40 MG TAB PO SCH (08:32)
[2024-08-01] MEDS: FOLIC ACID 1 MG TAB PO SCH (08:32)
[2024-08-01] MEDS: THIAMINE 100 MG TAB PO SCH (08:32)
[2024-08-01] MEDS: metOLazone 2.5 MG TAB PO SCH (08:33)
[2024-08-01 08:37] LABS: NT-Pro-B-Type Natriuretic Pept 2230 pg/mL
[2024-08-01] MEDS ORDERED: metOLazone 5 MG TAB PO SCH (09:00)
--- NOTE | 2024-08-01 11:02 | P.DS ---
Providers Date of admission: 07/27/24 17:23 Attending physician: Be Nava Consults: 07/27/24 17:19 Consult Physician Routine Consulting Provider: Gordo Freire Consult Reason/Comments: CHF exacerbation Do you want consulting provider notified?: Yes 07/27/24 17:27 Consult Physician Routine Consulting Provider: Jose Cook Consult Reason/Comments: Acute on chronic renal failure Do you want consulting provider notified?: Yes Primary care physician: [place] Hospital Course: HISTORY OF PRESENT ILLNESS: 54-year-old With active medical history of severe cardiomyopathy with ejection fraction less than 20 percentile, history of left atrial thrombus was previously on Eliquis, chronic kidney disease stage III, history of chronic alcohol abuse, possible history of obstructive sleep apnea, history of recurrent congestive heart failure mostly systolic, history of noncompliance who has not been seen in our office for over 2 years, who apparently had quit taking all his home meds last 2 years and not seen any physician including grease press helper or primary care or service officer for over 18 months. He presented to the emergency department on 07/27/2024 with anasarca and severe edema of the lower extremity with weight gain over 50 pounds last few months and again decline has not taking any diuretics or any heart medication for the last 12 months. He become quite bit symptomatic with worsening increased shortness of breath with minimal exertion significant PND orthopnea palpitation was seen and evaluated in the emergency department laboratory value shows elevated troponin with proBNP of 26,200, creatinine was 2.26 previously used to run around 1.4 with GFR at this time down to 32. Had mildly elevated C-reactive protein and normal hemoglobin. EKG showed sinus rhythm with left bundle branch block pulse rate running at 94 bpm. Chest x-ray showed moderate cardiomegaly with interstitial density with patchy opacity over the right lower lobe most likely sequela of congestive heart failure also right tibia and tibial x-ray shows soft tissue swelling with no acute osseous abnormality seen. He was seen evaluated and initiate treatment at the emergency department with having patient on furosemide 40 mg IV Q8 to watch his urine output carefully restarted back on Coreg Plavix originally and has quite a bit cellulitis of the lower extremity was started on Bactrim DS. 07/29/2024: He is lost over 5 kg in short period of time his anasarca and swelling in the legs still quite bad at this point still have weight to go the current use of heavy diuretics so far did not have any negative impact on his kidney function and the fact that his GFR has been slightly bit better we will continue to watch it again closely. Cardiology added Entresto 24/26 mg half tablet twice a day which I agree will be the best management plan and is still on Bactrim DS for his cellulitis which should be probably changed to Unasyn instead of the side effect of Bactrim on his kidney function. Furosemide still been done at 60 mg IV twice a day and the patient is able to tolerate spironolactone 25 mg half tablet before he leaves the hospital this time will be sanford to keep him on it. 07/30/2024: Cardiology is change patient medication remain on furosemide IV 60 mg twice a day but having addition of Entresto and hydralazine with the possibility in the future of having to use isosorbide can be extremely beneficial. Weight sanford he is weight is down to around 105 continue to make good urine output at this point, edema and swelling in the lower extremity much better and cellulitis in the right leg still hot antibiotic sanford we will switch patient from oral to IV Unasyn at this point. 07/31/2024: He has done quite well last 24 hours his weight is down to 101 with total reduction of almost 12 kg over 27 pounds in a short period of time he has been here. Continue current management wound care and cellulitis of the leg has improved some and patient be switched to oral medication as early as tomorrow. His laboratory evaluate kidney function has improved significantly creatinine dropped to 1.79 will repeat his labs again tomorrow morning hopefully the patient be discharged home tomorrow. Left social service worker a prescription to see if he has coverage for Entresto which will be helpful before his discharge rest of his medication are affordable. 08/01/2024: Is doing very well with adjusted medication his blood pressure seems to be better controlled, lab value still pending at this point, patient had lost close to 30 pounds still have about 20 want to go, his cellulitis is much better, shortness of breath has improved significantly, patient is able to move and ambulate freely without any major effort or shortness of breath still s lightly symptomatic with fluid overload with significant improvement. Again counseling patient on the necessity of compliance taking his medication continue to quit alcohol for him to continue to maintain in a good health without having to decline and have worsening outcome including mortality in the next year or 2 if you continue doing the same thing. Again patient agree to follow-up in the office and closely appointment every few weeks and follow-up with cardiology quickly. Will have the social service worker involved of making sure medication will be able to get his medication and will be affordable. REVIEW OF SYSTEMS Constitutional: No fever, no chills, no night sweats. No weight change. No weakness, fatigue or lethargy. No daytime sleepiness. EENT: No headache. No blurred vision or double vision, no loss of vision. No loss of Hearing, no ringing in the ears, no dizziness. No nasal drainage or congestion. No epistaxis. No sore throat. Lungs: Reports shortness of breath, cough, no sputum production. No wheezing. Reports dyspnea with exertion. Cardiovascular: No chest pain, reports lower extremity edema. No palpitations. No paroxysmal nocturnal dyspnea. Reports reports abdominal edema. orthopnea. No lightheadedness or dizziness. No syncopal episodes. Abdominal: No abdominal pain. No nausea, vomiting. No diarrhea. No constipat ion. No bloody or tarry stools. No loss of appetite. Genitourinary: No dysuria, increased frequency, urgency. No urinary retention. Musculoskeletal: No myalgias. No muscle weakness, no gait dysfunction, no frequent falls. No back pain. No neck pain. Integumentary: No wounds, no lesions. No rash or pruritus. No unusual bruising. No change in hair or nails. Neurologic: No aphasia. No facial droop. No change in mentation. No head injury. No headache. No paralysis. No paresthesia. Psychiatric: No depression. No anxiety. No mood swings. Endocrine: No abnormal blood sugars. No weight change. PHYSICAL EXAMINATION Gen: This is a morbidly obese 54-year-old male. He was sitting in the chair and required with distress still have significant anasarca and edema. HEENT: Head is atraumatic, normocephalic. Pupils equal, round. Sclerae is anicteric. NECK: Supple. No JVD. No lymphadenopathy. No thyromegaly. LUNGS: Diminished breath sounds bilaterally. No wheezes or rhonchi. No intercostal retractions. No accessory muscle usage HEART: Regular rate and rhythm. Systolic murmur. ABDOMEN: Soft. Bowel sounds are present. No masses. No tenderness. Generalized anasarca lower torso, hips. EXTREMITIES: 2+ pedal edema. No calf tenderness. Small wounds to the left pretibial area with serous drainage. NEUROLOGICAL: Patient is awake, alert and oriented x3. Cranial nerves 2 through 12 are grossly intact. ASSESSMENT AND PLAN _Acute systolic congestive heart failure: He was not taking his medication for several months, he is back on Entresto, carvedilol, spironolactone, furosemide and Zaroxolyn medication will be change back to oral furosemide tomorrow and Zaroxolyn will be decreased to 2.5 mg a day he is weight loss is going very fast should slow down little bit. _Severe alcoholic cardiomyopathy with ejection fraction of 30 percentile, currently getting Medication Entresto, Coreg, amiodarone and Lasix. _Elevated troponin: No sign of ongoing acute IA at this point patient to be treated clinically no intervention or heart cath required. _Anasarca: Has lost so far over 27 pounds in the short period of time we will continue current medication and try to lose more with total probably 50+ pounds. _Cellulitis of the lower extremity with the current edema and worsening cellulitis we will switch antibiotic doxycycline and Silvadene cream. _Acute kidney injury with stage IIIb chronic kidney disease, worsening symptoms most likely with hypoperfusion related to his low ejection fraction along with noncompliance to medication, try to correct the patient recurrent problem by backing him up on medication watching symptoms carefully probably the kidney function will improve also watch while he is on diuretics for any worsening sign of kidney failure. _Obstructive sleep apnea: Patient supposed to be on CPAP is not using it currently. _Chronic alcoholism: Has not had any alcohol in over 2 weeks is not showing any sign of withdrawal symptoms patient will be going back to AA and more supportive care will continue thiamine along with folic acid. _History of left atrial thrombus was previously on Eliquis. Resume medication. _Hyperlipidemia: Resume atorvastatin 80 mg daily. _Hypertension: Was previously done on Coreg and spironolactone along with ARB. _GI prophylaxis: Continue Pepcid 20 mg daily. Discussion: The patient is very stable will be discharged home today will offer home care and probably can benefit from cardiac rehab as an outpatient. Hospital course: Patient was hospitalized on 07/27/2024 with severe dyspnea and shortness of breath with anasarca with weight gain over 50 pounds he has not been seen in our office in the last 12 months he quit completely has not taking any of his medication at the time of his presentation he was severely dyspneic had 50 pound weight gain had anasarca 3+ edema of the lower extremity with severe cellulitis of the lower extremity had fluid and water retention including ascites along with pleural effusion and fluid retention from the thigh to his dose. Starting patient on IV diuretics while watching his kidney function he was in stage IV chronic kidney disease at this point his proBNP was quite bit high at 26,000 IV diuretics with 60 mg of furosemide twice a day after 40 mg IV 3 times a day started patient was on Zaroxolyn 5 mg a day was seen cardiology, nephrology and our service. Pleural effusion did not require any thoracentesis. Started patient on Entresto his blood pressure is not holding well reduce the dose to 24/26 mg patient had tolerated well currently. Adjusting his diuretics and continue Unasyn for his cellulitis initially along with Silvadene cream. He has done very well over the last few days his creatinine increased to 1.7 his with primary filtration rate around 40 with stage III chronic kidney disease continue to improve will be discharged home to follow-up in our office in a few weeks follow-up with cardiology every 6 weeks and follow-up with nephrology as well. Regarding this hospitalization patient did not have any alcohol withdrawal or complication. His echocardiogram shows ejection fraction of 30-35 percentile which is better than the last 1 was done over a year ago. Time spent on patient discharge was 33 minutes. Patient Condition at Discharge: Fair Plan - Discharge Summary Discharge Rx Participant: Yes New Discharge Prescriptions: New Sacubitril/Valsartan [Entresto 24 mg-26 mg Tablet] 0.5 each PO BID #60 tab hydrALAZINE HCL [Apresoline] 50 mg PO TID #90 tab Aspirin 81 mg PO DAILY tab carvediloL [Coreg*] 25 mg PO BID-W/MEALS #60 tab Folic Acid 1 mg PO DAILY #60 tab Atorvastatin [Lipitor] 40 mg PO HS #30 tab Thiamine [Vitamin B-1] 100 mg PO DAILY #60 tab metOLazone [Zaroxolyn] 2.5 mg PO DAILY #30 tab Doxycycline Hyclate 100 mg PO AC-BID #20 capsule Clopidogrel [Plavix] 75 mg PO DAILY #30 tab SILVER sulfADIAZINE CREAM [Silvadene Cream] 1 applic TOPICAL BID #100 cm Continue Spironolactone [Aldactone] 25 mg PO DAILY #30 tab Changed Furosemide [Lasix] 40 mg PO BID #60 tab Discontinued Atorvastatin [Lipitor] 80 mg PO HS #30 tab Discharge Medication List Sacubitril/Valsartan [Entresto 24 mg-26 mg Tablet] 0.5 each PO BID #60 tab 07/31/24 [Rx] Aspirin 81 mg PO DAILY tab 08/01/24 [Rx] Atorvastatin [Lipitor] 40 mg PO HS #30 tab 08/01/24 [Rx] Clopidogrel [Plavix] 75 mg PO DAILY #30 tab 08/01/24 [Rx] Doxycycline Hyclate 100 mg PO AC-BID #20 capsule 08/01/24 [Rx] Folic Acid 1 mg PO DAILY #60 tab 08/01/24 [Rx] Furosemide [Lasix] 40 mg PO BID #60 tab 08/01/24 [Rx] SILVER sulfADIAZINE CREAM [Silvadene Cream] 1 applic TOPICAL BID #100 cm 08/01/24 [Rx] Spironolactone [Aldactone] 25 mg PO DAILY #30 tab 08/01/24 [Rx] Thiamine [Vitamin B-1] 100 mg PO DAILY #60 tab 08/01/24 [Rx] carvediloL [Coreg*] 25 mg PO BID-W/MEALS #60 tab 08/01/24 [Rx] hydrALAZINE HCL [Apresoline] 50 mg PO TID #90 tab 08/01/24 [Rx] metOLazone [Zaroxolyn] 2.5 mg PO DAILY #30 tab 08/01/24 [Rx] Follow up Appointment(s)/Referral(s): Lewis Valera MD [STAFF PHYSICIAN] - 1 Week (Offices will call with an ap pointment date and time) Sybil Wu MD [STAFF PHYSICIAN] - 09/02/24 2:00 pm (SUNDAY- with Avril WEST) Be Nava MD [Primary Care Provider] - 08/04/24 3:30 pm (with JENNA Judd SUNDAY ) Ambulatory/Diagnostic Orders: Basic Metabolic Panel [LAB.AMB] Time Frame: 3 Days, Location: None Selected Patient Instructions/Handouts: Heart Failure (DC), Cellulitis (ED) Activity/Diet/Wound Care/Special Instructions: CHF Weigh yourself every morning after you urinate. If you gain 2-3 pounds overnight or 5 pounds in one week, call your primary physician for guidance on your medications. Keep a log of your weights. Avoid salt, or foods with hidden salt. Extra salt makes your heart work harder and traps the fluid in your body for longer. Take all of your medications as directed, especially your water pills. NEVER skip a dose. Elevate your legs when you are not up moving around to help with circulation and prevent swelling. Call your physician if you notice any extra swelling in your legs, ankles, feet or abdomen, if you have a new dry cough, if your shortness of breath worsens with activity or at rest, or if you feel more fatigued Discharge Disposition: HOME WITH HOME HEALTH SERVICES
[2024-08-01 11:11] VITALS: BP 123/83; PULSE 60; TEMP 97.7
--- NOTE | 2024-08-01 12:31 | P.PN ---
Subjective HISTORY OF PRESENT ILLNESS: Patient examined this morning at the bedside. Patient currently denies chest pain or pressure. He reports his shortness of breath is improving. He remains on IV Lasix 60 mg twice a day. Creatinine today 2.05. LFTs improving. AST 63. ALT 153. Echocardiogram completed revealing ejection fraction 25 to 30%, trace to mild TR, trace to mild MR, thickened pericardium with trace pericardial effusion. 07/30/2024 Patient examined this morning. He is sitting on the side of the bed. Patient currently denies chest pain or pressure. He denies shortness of breath. He continues to have significant lower extremity edema. Creatinine 2.10 today. He remains on IV Lasix 60 mg every 12 hours. Urine output for the last 24 hours is 3475 cc. Net balance for 24 hours is -2 L 07/30/2024 Patient examined this morning the bedside. Patient denies any chest pain or pressure. He denies shortness of breath. He continues to have lower extremity edema. He remains on IV Lasix 60 mg twice a day. Creatinine today 1.79. 07/31/2024 Patient examined this morning at the bedside. Patient currently denies chest pain or pressure. He denies shortness of breath. Patient has been transitioned to oral diuretics per internal medicine. Creatinine today 1.77. PHYSICAL EXAM: VITAL SIGNS: Reviewed. GENERAL: Well-developed in no acute distress. NECK: Supple. No JVD or thyromegaly LUNGS: Respirations even and unlabored. Lungs essentially clear to auscultation bilaterally. HEART: Regular rate and rhythm. S1 and S2 heard. EXTREMITIES: Normal range of motion. No clubbing or cyanosis. Peripheral pulses intact. 2+ bilateral lower extremity edema ASSESSMENT: Acute on chronic heart failure with reduced EF, 25 to 30%, likely due to medication and diet noncompliance Coronary artery disease with previous PCI to proximal circumflex and ramus intermedius, March 2022 Ischemic cardiomyopathy with component of alcohol related cardiomyopathy Hypertension Hyperlipidemia Chronic kidney disease Chronically elevated troponin secondary to poor renal clearance History of alcohol abuse Transaminitis Right lower extremity cellulitis PLAN: Continue current cardiac medications Continued abstinence from alcohol recommended Patient has been transition to oral diuretics per internal medicine Discussed possibility of ICD in the future to prevent sudden cardiac secondary to cardiomyopathy if his EF does not improve. Patient is agreeable. Stable for discharge from a cardiac standpoint Patient to have BMP drawn in 3 days Consider adding Farxiga on an outpatient basis Nurse practitioner note has been reviewed by physician. Signing provider agrees with the documented findings, assessment, and plan of care documented by REVERBERAT[employer] FURNACE OPERATOR as a scribe. Objective - Vital Signs Vital signs: Vital Signs Temp 97.7 F 08/01/24 11:09 Pulse 60 08/01/24 11:09 Resp 16 08/01/24 11:09 BP 123/83 08/01/24 11:09 Pulse Ox 100 08/01/24 11:09 FiO2 Intake & Output 07/31/24 08/01/24 08/01/24 18:59 06:59 18:59 Intake Total 554 240 Output Total 1020 Balance 554 -1020 240 Weight 101.4 kg Intake: Intake, IV Titration 200 Amount Ampicillin-Sulbactam 3 gm 200 In Sodium Chloride 0.9% 100 ml @ 200 mls/hr IVPB Q8HR [facility] Rx#:[id number] Oral 354 240 Output: Urine 1020 Other: Voiding Method Urinal Urinal # Voids 2 - Labs CBC & Chem 7: 08/01/24 07:46 08/01/24 07:46 Labs: Abnormal Lab Results - Last 24 Hours (Table) 08/01/24 08/01/24 Range/Units 07:46 07:46 MCV 102.3 H (80.0-100.0) fL MCHC 30.5 L (31.0-37.0) g/dL Sodium 134 L (137-145) mmol/L BUN 30 H (9-20) mg/dL Creatinine 1.77 H (0.66-1.25) mg/dL Glucose 151 H (74-99) mg/dL ALT 82 H (4-49) U/L Total Protein 5.4 L (6.3-8.2) g/dL Albumin 3.0 L (3.5-5.0) g/dL
--- NOTE | 2024-08-01 20:26 | P.PN ---
Subjective Patient is seen for follow-up for acute kidney injury associated with cardiorenal syndrome. Patient states that he is feeling better. He is currently maintained on IV Lasix. Serum creatinine decreased to 1.77 Shortness of breath has improved. Weight has decreased significantly. Objective - Vital Signs Vital signs: Vital Signs Temp 97.7 F 08/01/24 11:09 Pulse 60 08/01/24 11:09 Resp 16 08/01/24 11:09 BP 123/83 08/01/24 11:09 Pulse Ox 100 08/01/24 11:09 FiO2 Intake & Output 08/01/24 08/01/24 08/02/24 06:59 18:59 06:59 Intake Total 240 Output Total 1020 Balance -1020 240 Weight 101.4 kg Intake: Oral 240 Output: Urine 1020 Other: Voiding Method Urinal Urinal # Voids 2 - Exam patient is awake, comfortable, no acute distress. Examination of the heart S1 and S2 Examination of the lungs bilateral breath sounds are heard with decreased breath sounds at the bases Abdomen is soft nontender Examination lower extremity shows 3-4+ edema with significant erythema of the skin noted in the right leg. [employer] exam grossly intact - Labs CBC & Chem 7: 08/01/24 07:46 08/01/24 07:46 Labs: Abnormal Lab Results - Last 24 Hours (Table) 08/01/24 08/01/24 Range/Units 07:46 07:46 MCV 102.3 H (80.0-100.0) fL MCHC 30.5 L (31.0-37.0) g/dL Sodium 134 L (137-145) mmol/L BUN 30 H (9-20) mg/dL Creatinine 1.77 H (0.66-1.25) mg/dL Glucose 151 H (74-99) mg/dL ALT 82 H (4-49) U/L Total Protein 5.4 L (6.3-8.2) g/dL Albumin 3.0 L (3.5-5.0) g/dL Assessment and Plan Assessment: 1. Acute kidney injury, cardiorenal. Maintained on IV Lasix. No significant hypotension noted. UA is benign with trace protein 2. Cardiomyopathy with EF of 20-25% on echocardiogram in 2021 3. Chronic kidney disease NKF stage IIIa with baseline creatinine about 1.3-1.4 mg/dL 4. Volume overload, improved 5. Right lower extremity cellulitis , maintained on Unasyn Plan: Patient can be discharged from nephrology standpoint. Follow-up as outpatient in 1 to 2 weeks. Repeat labs as outpatient Discussed salt restriction T
--- NOTE | 2024-08-15 20:34 | CDI ---
Documentation Clarification Form Date: 08/15/2024 08:13:56 PM From: Rosio Cotto Phone: Admit Date: 07/27/2024 05:23:00 PM Patient Name: Rolando Cruz Visit Number: [id number] Discharge Date: 08/01/2024 12:45:00 PM ATTENTION: The Clinical Documentation Specialists (CDI) and [facility] Coding Staff appreciate your assistance in clarifying documentation. Please respond to the clarification below the line at the bottom and electronically sign. The CDI & [facility] Coding staff will review the response and follow-up if needed. Please note: Queries are made part of the Legal Health Record. If you have any questions, please contact the author of this message via ITS. Doctor/Provider: Be Nava Your patient has the documented diagnosis of: Stage IV chronic kidney disease per DC Summary StageIIIbchronic kidney disease per H&P, 07/29-08/01 and DC Summary Chronic kidney diseaseNKFstage IIIa Nephro Consult 07/28 Clarification regarding the stage of CKD is requested. History/Risk Factors: 54yo M, ACSHF, ETOH dependence w CM, elevated troponin, Cellulitis RLE, noncompliance to medication/diet, ASHLEY, CKD, ULISES, Hxleft atrial thrombus, HLD, HTN Baseline Cr about 1.3-1.4 mg/dL Clinical Indicators: BUN: 07/27 54 07/29 45 07/30 42 07/31 35 08/01 30 CR: 07/27 2.26 07/28 2.2 07/29 2.10-2.05 07/31 1.79 08/01 1.77 GFR: 32-37 Treatment: worsening symptoms mostlikely withhypo perfusion related to his low EF along with noncompliance to medication, try to correct the Pt recurrent problem by backing him up on medication watching symptoms carefullyprobablythe kidney function will improve also watch while he is on diuretics for any worsening sign ofkidney failure. Please clarify the stage of the CKD, if known: [ ] CKD Stage 3a [XX ] CKD Stage 3b [ ] CKD Stage 4 [ ] Other, please specify [ ] Unable to determine Reference: [employer] Stage 1 eGFR = 90 and kidney damage for =3 months Stage 2 eGFR 60-89 and kidney damage for =3 months Stage 3a eGFR 45-59 and kidney damage for =3 months Stage 3b eGFR 30-44 and kidney damage for =3 months Stage 4 eGFR 15-29 r and kidney damage for =3 months Stage 5 eGFR <15 and kidney damage for =3 months (Template last revised: November 2023) [facility]
== END 2024-08-01 12:45 | disposition home health service (06) | DRG 291 ==
LOC: EC 11:56 → 3SCARD 17:23
PROVIDERS: ADMIT Internal Medicine Geriatric Medicine; ATTEND Internal Medicine Geriatric Medicine
DX: I13.0 Hypertensive heart and chronic kidney disease with heart failure and stage 1 through stage 4 chronic kidney disease, or unspecified chronic kidney disease (principal); I50.23 Acute on chronic systolic (congestive) heart failure; L03.115 Cellulitis of right lower limb; N17.9 Acute kidney failure, unspecified; I42.6 Alcoholic cardiomyopathy; F10.20 Alcohol dependence, uncomplicated; N18.32 Chronic kidney disease, stage 3b; I44.7 Left bundle-branch block, unspecified; I25.10 Atherosclerotic heart disease of native coronary artery without angina pectoris; T50.916A Underdosing of multiple unspecified drugs, medicaments and biological substances, initial encounter; G47.33 Obstructive sleep apnea (adult) (pediatric); E78.5 Hyperlipidemia, unspecified; I25.5 Ischemic cardiomyopathy; Z91.119 Patient's noncompliance with dietary regimen due to unspecified reason; Z91.198 Patient's noncompliance with other medical treatment and regimen for other reason; Z91.148 Patient's other noncompliance with medication regimen for other reason; Z79.82 Long term (current) use of aspirin; Z79.02 Long term (current) use of antithrombotics/antiplatelets; Z79.899 Other long term (current) drug therapy; Z87.891 Personal history of nicotine dependence; Z86.79 Personal history of other diseases of the circulatory system; Z95.5 Presence of coronary angioplasty implant and graft
CPT/HCPCS: 36415; 71046; 80048; 80053; 81003; 83036; 83605; 83735; 83880; 84443; 84484; 85025; 85027; 85610; 85652; 85730; 86140; 93005; 93306; 96374; 96376; 99285

== ENCOUNTER → 2024-09-03 | Outpatient (CLI) | payer OTHER ==
[2024-09-03 16:48] LABS: HCT 42.4 % (39.6-50.0); HGB 14.4 g/dL (13.0-17.0); MCH 30.4 pg (27.0-32.0); MCV 89.5 FL (80.0-97.0); Mean Platelet Volume 11.7 FL (9.5-12.2); NRBC Per 100 WBC 0 X 10*3/uL (0.00-0.01); Platelet Count 177 X 10*3/uL (140-440); RBC 4.74 X 10*6/uL (4.40-5.60); WBC 5.88 X 10*3/uL (4.50-10.00)
[2024-09-03 21:29] LABS: NT-Pro-B-Type Natriuretic Pept 406 pg/mL (0-125)
[2024-09-03 21:35] LABS: Chol/HDL Ratio 2.15 Ratio; VLDL Calculation 11.92 mg/dL (5.00-40.00)
[2024-09-03 22:39] LABS: ALT 23 U/L (10-49); AST 32 U/L (14-35); Albumin 4.3 g/dL (3.8-4.9); Albumin/Globulin Ratio 1.48 Ratio (1.60-3.17); Alkaline Phosphatase 67 U/L (41-126); BUN/Creat Ratio 16.88 Ratio (12.00-20.00); Calcium 9.7 mg/dL (8.7-10.3); Carbon Dioxide 23.2 mmol/L (21.6-31.8); Chloride 98 mmol/L (96-109); Globulin 2.9 g/dL (1.6-3.3); Glucose 109 mg/dL (70-110); Potassium 5.5 mmol/L (3.5-5.5); Sodium 135 mmol/L (135-145); Total Bilirubin 0.4 mg/dL (0.3-1.2); Total Protein 7.2 g/dL (6.2-8.2)
== END | disposition home or self-care (01) ==
LOC: LABWHC1 08:23
PROVIDERS: ATTEND Student in an Organized Health Care Education/Training Program
CPT/HCPCS: 36415; 80053; 80061; 83036; 83880; 85027